=== PATIENT | male | born 2000 | race Caucasian/White ===

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

== ENCOUNTER 2019-11-23 04:39 | Emergency (ER) | payer MEDICAID ==
--- NOTE | 2019-11-23 04:52 | ED Physician Documentation ---
PD HPI LOWER EXT INJURY - Stated complaint Stated Complaint: LT ANKLE SWELLING - Chief complaint Chief Complaint: Ext Problem - History obtained from History obtained from: Patient, Family - History of Present Illness PD HPI LOW EXT INJURY LOCATION: Left, Ankle Type of injury: Twist (inversion injury a month ago but was feeling okay. Walked a bit more yesterday, and today noted redness and swelling over lateral malleolus. No skin sores. No fevers. No recent abscesses, dental work, IV use.). No: Fall Timing - onset: Yesterday Timing - duration: Days (2) Timing - details: Gradual onset, Still present Worsened by: Moving, Palpating Associated symptoms: Swelling, Discolored (redness). No: Weakness, Numbness Similar symptoms before: Has not had sx before Recently seen: Not recently seen Review of Systems Constitutional: denies: Fever, Chills, Myalgias Throat: denies: Sore throat Skin: denies: Abrasion (s), Laceration (s) PD PAST MEDICAL HISTORY - Past Medical History Cardiovascular: None Endocrine/Autoimmune: None Musculoskeletal: None Derm: Psoriasis - Past Surgical History Past Surgical History: No - Present Medications Home Medications: Ambulatory Orders Medication Instructions Recorded Confirmed Tramadol HCl 50 mg PO Q6H PRN #20 tablet 10/08/17 Hydrocodone/Acetaminophen [Mcbee 1 each PO Q6H PRN #15 tablet 11/23/19 5-325 Tablet] Ibuprofen [Motrin] 600 mg PO TID PRN #25 tab 11/23/19 dexAMETHasone [Decadron] 4 mg PO DAILY #5 tablet 11/23/19 - Allergies Allergies/Adverse Reactions: Allergies Allergy/AdvReac Type Severity Reaction Status Date / Time polymyxin B AdvReac Hives Verified 10/08/17 13:59 - Social History Does the pt smoke?: No Smoking Status: Never smoker Does the pt drink ETOH?: No Does the pt have substance abuse?: No - Immunizations Immunizations are current?: Yes - POLST Patient has POLST: No PD ED PE NORMAL - Vitals Vital signs reviewed: Yes - General General: Alert and oriented X 3, Well developed/nourished - Derm Derm: Normal color, Warm and dry - Extremities Extremities: No edema, No calf tenderness / cord, Other (He has mild effusion on the lateral aspect of the left ankle with redness warmth and tenderness over that area. There are no skin sores rash abrasions or lacerations.) - Neuro Neuro: Alert and oriented X 3, No motor deficit, No sensory deficit Results - Vitals Vitals: Vital Signs - 24 hr 11/23/19 04:43 Temperature 36.8 C Heart Rate 79 Respiratory 16 Rate Blood Pressure 139/106 H O2 Saturation 100 Oxygen O2 Source Room air Procedures - Arthrocentesis Joint: Ankle Preparation: Sterile prep and drape Anesthesia: LET Fluid: Other (unable to extract fluid from joint) Aftercare: Dressing applied, Patient tolerated well PD MEDICAL DECISION MAKING - ED course Complexity details: considered differential (Consider gout or tendinitis. However he is a bit young and has no history of gout. I think there is enough of an effusion to get a sample off. We will have the nurses put some let on the area and I can get some fluid from the joint. Meanwhile we will treat for inflammation and pain.), d/w patient ED course: I was unable to obtain fluid from the joint which had a mild effusion. At this point he does not have any fever and no obvious reason for an infectious process. We will treat for inflammatory causes such as gout and tendinitis or inflammatory arthritis. I cautioned him to recheck if not improved within a couple of days and return if he has increasing redness especially not localized to around the joint or fevers or general illness. Departure - Departure Disposition: 01 Home, Self Care Clinical Impression: Pain in lateral portion of left ankle, Inflammatory arthritis Condition: Stable Record reviewed to determine appropriate education?: Yes Prescriptions: dexAMETHasone [Decadron] 4 mg PO DAILY #5 tablet Hydrocodone/Acetaminophen [Mcbee 5-325 Tablet] 1 each PO Q6H PRN #15 tablet PRN Reason: Pain Ibuprofen [Motrin] 600 mg PO TID PRN #25 tab PRN Reason: Pain Comments: Kojo wrap and elevate the ankle to reduce swelling. Use the crutches for nonweightbearing as needed for comfort. At this point will assume an inflammatory process such as tendinitis or gout. We will treated with anti-inflammatories of naproxen and Decadron and to that add Tylenol or hydrocodone as needed for pain. Recheck if not improved well over the next couple of days. Return sooner if increasing pain or redness in in particular if it extends more up the leg and not just around the joint. Also fever would be more indicative of infection and to return if that occurs. So summary would be we are treating it as an inflammatory and return if: 1 not improved in the next couple of days 2 the redness and swelling extends into larger range 3 you develop fever or generalized symptoms
[2019-11-23] MEDS ORDERED: IBUPROFEN 600 MG TABLET PO STA (05:01)
[2019-11-23] MEDS ORDERED: HYDROcod/ACETAM 5/325 MG TABLET PO STA (05:02)
[2019-11-23] MEDS ORDERED: DEXAMETHASONE 10 MG/ML VIAL PO STA (05:02)
[2019-11-23] MEDS ORDERED: LIDOCAINE-EPINEPH-TETRACAINE 3 ML SYRINGE TOP STA (05:02)
[2019-11-23] MEDS ORDERED: CHERRY SYRUP 10 ML UDC PO ONE (05:02)
[2019-11-23 05:54] VITALS: BP 135/77
== END 2019-11-23 05:53 | disposition home or self-care (01) ==
LOC: ED 04:39
DX: M13.872 Other specified arthritis, left ankle and foot (principal)
CPT/HCPCS: 20605; 99283; A9270

== ENCOUNTER 2020-05-23 13:06 | Emergency (ER) | payer MEDICAID ==
[2020-05-23 13:17] VITALS: BP 101/65
[2020-05-23] MEDS ORDERED: BACITRACIN ZINC OINT 1 PACKET TOP STA (13:29)
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
== END 2020-05-23 13:39 | disposition home or self-care (01) ==
LOC: ED 13:06
DX: S71.111A Laceration without foreign body, right thigh, initial encounter (principal); W26.0XXA Contact with knife, initial encounter; Y93.01 Activity, walking, marching and hiking
CPT/HCPCS: 12001; 99282

== ENCOUNTER 2021-03-08 09:00 | Emergency (ER) | payer MEDICAID ==
[2021-03-08 09:10] VITALS: BP 104/59
[2021-03-08] MEDS ORDERED: methocarbamoL 500 MG TABLET PO STA (09:21)
[2021-03-08] MEDS ORDERED: KETOROLAC 30 MG/ML VIAL IM STA (09:22)
[2021-03-08] MEDS ORDERED: LIDOCAINE PATCH 5% TOP STA (09:23)
--- NOTE | 2021-03-08 09:24 | ED Physician Documentation ---
History of Present Illness - Stated complaint Stated Complaint: BACK PX - Chief complaint Chief Complaint: Back Pain - History obtained from History obtained from: Patient - Additonal information Additional information: 20-year-old man without significant past medical history presents with right lower back pain intermittent over the past 3 days, progressively worsening, gradual in onset and radiating from the right lower back down the middle of the leg to just below the knee. Sharp quality, severe, keeping him from sleeping, without associated symptoms. Patient denies numbness or weakness. He is having difficulty ambulating secondary to pain but is able to walk. Denies fevers or saddle anesthesia or urinary incontinence or retention or fecal incontinence or retention. denies dysuria, hematuria. Review of Systems Constitutional: denies: Fever, Chills GI: denies: Constipation : denies: Unable to Void, Incontinent Musculoskeletal: reports: Back pain, Extremity pain Neurologic: denies: Focal weakness, Numbness PD PAST MEDICAL HISTORY - Past Medical History Cardiovascular: None Endocrine/Autoimmune: None Musculoskeletal: None Derm: Psoriasis - Past Surgical History Past Surgical History: No - Present Medications Home Medications: Ambulatory Orders Medication Instructions Recorded Confirmed No Known Home Medications 03/08/21 03/08/21 - Allergies Allergies/Adverse Reactions: Allergies Allergy/AdvReac Type Severity Reaction Status Date / Time polymyxin B AdvReac Hives Verified 03/08/21 09:10 - Social History Does the pt smoke?: No Smoking Status: Never smoker Does the pt drink ETOH?: No Does the pt have substance abuse?: No - Immunizations Immunizations are current?: Yes - POLST Patient has POLST: No PD ED PE NORMAL - Vitals Vital signs reviewed: Yes - General General: Alert and oriented X 3, No acute distress, Well developed/nourished - HEENT HEENT: Atraumatic, PERRL, EOMI - Neck Neck: Supple, no meningeal sign - Back Back: No CVA TTP, No spinal TTP, Other (Right lumbosacral region tender to palpation in a muscular distribution. Negative straight leg raise) - Derm Derm: Normal color, Warm and dry - Extremities Extremities: No deformity, Other (Full range of motion of bilateral hips. Discomfort with flexion at the hip on the right side.) - Neuro Neuro: Alert and oriented X 3 - Psych Psych: Normal mood, Normal affect Results - Vitals Vitals: Vital Signs - 24 hr 03/08/21 09:08 Temperature 36.4 C L Heart Rate 80 Respiratory 16 Rate Blood Pressure 104/59 L O2 Saturation 97 Oxygen O2 Source Room air PD MEDICAL DECISION MAKING - ED course ED course: 20-year-old man presents with right low back strain. Strict return precautions given. Patient will follow up with his primary doctor. Departure - Departure Disposition: 01 Home, Self Care Clinical Impression: Low back strain Condition: Stable Instructions: ED Spasm Back No Trauma Comments: You were seen in the emergency department for right lower back strain. Please apply ice for 20 minutes every hour alternating with warm compress for 20 minutes every hour and take hot showers to try to relax your muscles. Take ibuprofen 600 mg every 6 hours as needed for pain. You can get [id number] IcyHot to help with pain as well. Return the emergency department if you experience any new or worsening symptoms or have other concerns. Follow-up with your primary doctor this week.
== END 2021-03-08 10:04 | disposition home or self-care (01) ==
LOC: ED 09:00
DX: S39.012A Strain of muscle, fascia and tendon of lower back, initial encounter (principal); X58.XXXA Exposure to other specified factors, initial encounter
CPT/HCPCS: 96372; 99283; 99284

== ENCOUNTER 2021-03-08 20:50 | Observation (INO) | payer MEDICAID ==
[2021-03-08] MEDS ORDERED: KETOROLAC 15 MG/ML VIAL IVP STA (21:14)
[2021-03-08] MEDS ORDERED: SODIUM CHLORIDE 0.9% 1,000 ML IV STA (21:14)
[2021-03-08 21:34] LABS: BASOPHILS % (AUTO) 0.1 %; EOSINOPHILS % (AUTO) 0.5 %; HCT - HEMATOCRIT 37.4 % (42.0-52.0); HGB - HEMOGLOBIN 12.5 g/dL (14.0-18.0); LYMPHOCYTES % (AUTO) 11.3 %; MEAN CORPUSCULAR HEMOGLOBIN 27.6 pg (27.0-31.0); MEAN CORPUSCULAR HGB CONC 33.4 g/dL (32.0-36.0); MEAN CORPUSCULAR VOLUME 82.6 fL (80.0-94.0); MEAN PLATELET VOLUME 8.9 fL (7.4-11.4); MONOCYTES % (AUTO) 10.7 %; PLT - PLATELET COUNT 258 10^3/uL (130-450); RED BLOOD COUNT 4.53 10^6/uL (4.70-6.10); WHITE BLOOD COUNT 15.1 x10^3/uL (4.8-10.8)
[2021-03-08 21:36] LABS: ABNORMAL LYMPHS % (MANUAL) 0 %
[2021-03-08 21:48] LABS: ALBUMIN 3.9 g/dL (3.2-5.5); ALBUMIN/GLOBULIN RATIO 1.2 (1.0-2.2); CALCIUM 9.1 mg/dL (8.5-10.3); CREATININE 0.9 mg/dL (0.6-1.2); POTASSIUM 3.5 mmol/L (3.5-5.0); TOTAL PROTEIN 7.1 g/dL (6.7-8.2)
[2021-03-08 21:57] LABS: BAND NEUTROPHILS % (MANUAL) 1 %; EOSINOPHILS # (MANUAL) 0.2 10^3/uL (0-0.7); LYMPHOCYTES % (MANUAL) 13 %; MONOCYTES # (MANUAL) 0.9 10^3/uL (0.0-1.0); NEUTROPHILS # (MANUAL) 12.1 10^3/uL (1.5-6.6)
[2021-03-08 21:58] LABS: DIFFERENTIAL COMMENT MANUAL DIFFERENTIAL; PLATELET ESTIMATE, MANUAL NORMAL (130-450,000) (NORMAL); PLATELET MORPHOLOGY NORMAL APPEARANCE (NORMAL); RBC MORPHOLOGY (MULTIPLE) NORMAL APPEARANCE (NORMAL); WBC MORPHOLOGY (MULTIPLE) 1+ TOXIC GRANULATION (NORMAL)
--- NOTE | 2021-03-08 21:59 | ED Physician Documentation ---
PD HPI BACK PAIN - Stated complaint Stated Complaint: BACK/HIP PX - Chief complaint Chief Complaint: Back Pain - History obtained from History obtained from: Patient - History of Present Illness Timing - onset: How many days ago (2-3) Timing - details: Gradual onset, Waxing and waning Pain level now: 8 Location: Lower, Right Quality: Pain Associated symptoms: Fever (febrile in ED triage; patient was not aware of fever at home). No: Weakness, Numbness, Incontinent of urine, Unable to urinate, Hematuria, Incontinent of stool Improves with: Rest, Position Worsened by: Movement Similar symptoms before: Has not had sx before Recently seen: Emergency Dept (T+R earlier today for back pain) - Additional information Additional information: c/o 2-3 days of gradual onset atraumatic right low back pain that radiates to right buttock, right hip, and proximal right posterior thigh. He denies h/o similar symptoms. He was evaluated for this pain earlier today in this ED, given robaxin, IM toradol, and lidoderm patch. Discharged without rx, instructed to take ibuprofen. Patient says the meds given in ED were helpful in providing pain relief but that the pain has gradually returned and it continues to progress in severity and is now worse than when he was evaluated earlier today. 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 He says he has not injected heroin, nor any other substance, for at least 5-6 months Review of Systems Constitutional: reports: Fever (in ED although was unaware of any fevers at home), Chills, Sweats Cardiac: reports: Reviewed and negative Respiratory: reports: Reviewed and negative GI: reports: Reviewed and negative : denies: Dysuria, Frequency, Unable to Void, Incontinent, Testicular pain Skin: denies: Rash Musculoskeletal: reports: Back pain Neurologic: denies: Generalized weakness, Focal weakness, Numbness, Headache PD PAST MEDICAL HISTORY - Past Medical History Past Medical History: Yes Cardiovascular: None Respiratory: None Neuro: None Endocrine/Autoimmune: None GI: None : None HEENT: None Psych: None Musculoskeletal: None Derm: Psoriasis - Past Surgical History Past Surgical History: No - Present Medications Home Medications: Ambulatory Orders Medication Instructions Recorded Confirmed No Known Home Medications 03/08/21 03/08/21 - Allergies Allergies/Adverse Reactions: Allergies Allergy/AdvReac Type Severity Reaction Status Date / Time polymyxin B AdvReac Hives Verified 03/08/21 09:10 - Social History Does the pt smoke?: No Smoking Status: Never smoker Does the pt drink ETOH?: No Does the pt have substance abuse?: No - Immunizations Immunizations are current?: Yes - POLST Patient has POLST: No PD ED PE NORMAL - Vitals Vital signs reviewed: Yes - General General: Alert and oriented X 3, Well developed/nourished, Other (appears uncomfortable/ mild-moderate painful distress) - HEENT HEENT: PERRL, EOMI, Moist mucous membranes - Neck Neck: Supple, no meningeal sign - Cardiac Cardiac: No murmur - Respiratory Respiratory: No respiratory distress, Clear bilaterally - Abdomen Abdomen: Soft, Non tender - Back Back: No CVA TTP, No spinal TTP - Derm Derm: Normal color, Warm and dry, No rash - Extremities Extremities: No edema - Neuro Neuro: Alert and oriented X 3, No sensory deficit PD ED PE EXPANDED - Cardiac Cardiac: Tachy, Regular Rhythm - Extremities Extremities: Limited ROM (able to flex right hip to 45 degrees but no further due to exacerbation of pain. cannot extend right knee due to pain. abduction at right hip past 20-30 degrees also exacerbates pain). No: Swelling Results - Vitals Vitals: Vital Signs - 24 hr 03/08/21 03/08/21 03/08/21 20:57 21:47 22:28 Temperature 38.6 C H 38.1 C H Heart Rate 112 H 103 H 91 Respiratory 19 20 15 Rate Blood Pressure 120/80 118/65 122/69 O2 Saturation 100 97 100 03/09/21 03/09/21 03/09/21 00:44 01:27 01:43 Temperature Heart Rate 98 98 82 Respiratory 18 17 16 Rate Blood Pressure 117/64 109/37 L 95/74 O2 Saturation 100 99 98 03/09/21 03/09/21 03:00 03:06 Temperature 37.1 C Heart Rate 100 Respiratory 98 H 18 Rate Blood Pressure 92/46 L O2 Saturation 98 Oxygen O2 Source Room air - Labs Labs: Laboratory Tests 03/08/21 03/08/21 03/08/21 21:31 21:31 21:33 WBC 15.1 H RBC 4.53 L Hgb 12.5 L Hct 37.4 L MCV 82.6 MCH 27.6 MCHC 33.4 RDW 13.0 Plt Count 258 MPV 8.9 Neut # (Auto) Not Reportable Lymph # (Auto) Not Reportable Faulkner # (Auto) Not Reportable Eos # (Auto) Not Reportable Baso # (Auto) Not Reportable Absolute Nucleated RBC Not Reportable Total Counted 100 Band Neuts % (Manual) 1 Abnorm Lymph % (Manual) 0 Nucleated RBC % Not Reportable Neutrophils # (Manual) 12.1 H Lymphocytes # (Manual) 2.0 Monocytes # (Manual) 0.9 Eosinophils # (Manual) 0.2 Basophils # (Manual) 0.0 Differential Comment MANUAL DIFFERENTIAL WBC Morphology 1+ TOXIC GRANULATION Platelet Estimate NORMAL (130-450,000) Platelet Morphology NORMAL APPEARANCE RBC Morph Micro Appear NORMAL APPEARANCE ESR Sodium 136 Potassium 3.5 Chloride 99 L Carbon Dioxide 26 Anion Gap 11.0 BUN 11 Creatinine 0.9 Estimated GFR (MDRD) 107 Glucose 99 Lactic Acid Calcium 9.1 Total Bilirubin 1.0 AST 16 ALT 13 Alkaline Phosphatase 60 C-Reactive Protein 12.3 H Total Protein 7.1 Albumin 3.9 Globulin 3.2 Albumin/Globulin Ratio 1.2 Lipase 23 Urine Color Urine Clarity Urine pH Ur Specific [place] Urine Protein Urine Glucose (UA) Urine Ketones Urine Occult Blood Urine Nitrite Urine Bilirubin Urine Urobilinogen Ur Leukocyte Esterase Ur Microscopic Review Urine Culture Comments Nasal Adenovirus (PCR) Nasal B. parapertussis DNA (PCR) Nasal Coronavir 229E PCR Nasal Coronavir HKU1 PCR Nasal Coronavir NL63 PCR Nasal Coronavir OC43 PCR Nasal Enterovir/Rhinovir PCR Nasal Influenza B PCR Nasal Influenza A PCR Nasal Parainfluen 1 PCR Nasal Parainfluen 2 PCR Nasal Parainfluen 3 PCR Nasal Parainfluen 4 PCR Nasal RSV (PCR) Nasal B.pertussis DNA PCR Nasal C.pneumoniae (PCR) Omid Human Metapneumo PCR Nasal M.pneumoniae (PCR) Nasal SARS-CoV-2 (PCR) 03/08/21 03/08/21 03/09/21 23:32 23:55 02:40 WBC RBC Hgb Hct MCV MCH MCHC RDW Plt Count MPV Neut # (Auto) Lymph # (Auto) Fa[place]ner # (Auto) Eos # (Auto) Baso # (Auto) Absolute Nucleated RBC Total Counted Band Neuts % (Manual) Abnorm Lymph % (Manual) Nucleated RBC % Neutrophils # (Manual) Lymphocytes # (Manual) Monocytes # (Manual) Eosinophils # (Manual) Basophils # (Manual) Differential Comment WBC Morphology Platelet Estimate Platelet Morphology RBC Morph Micro Appear ESR Sodium Potassium Chloride Carbon Dioxide Anion Gap BUN Creatinine Estimated GFR (MDRD) Glucose Lactic Acid 1.3 Calcium Total Bilirubin AST ALT Alkaline Phosphatase C-Reactive Protein Total Protein Albumin Globulin Albumin/Globulin Ratio Lipase Urine Color YELLOW Urine Clarity CLEAR Urine pH 7.0 Ur Specific [place] <=1.005 Urine Protein NEGATIVE Urine Glucose (UA) NEGATIVE Urine Ketones NEGATIVE Urine Occult Blood NEGATIVE Urine Nitrite NEGATIVE Urine Bilirubin NEGATIVE Urine Urobilinogen 0.2 (NORMAL) Ur Leukocyte Esterase NEGATIVE Ur Microscopic Review NOT INDICATED Urine Culture Comments NOT INDICATED Nasal Adenovirus (PCR) NOT DETECTED Nasal B. parapertussis DNA (PCR) NOT DETECTED Nasal Coronavir 229E PCR NOT DETECTED Nasal Coronavir HKU1 PCR NOT DETECTED Nasal Coronavir NL63 PCR NOT DETECTED Nasal Coronavir OC43 PCR NOT DETECTED Nasal Enterovir/Rhinovir PCR NOT DETECTED Nasal Influenza B PCR NOT DETECTED Nasal Influenza A PCR NOT DETECTED Nasal Parainfluen 1 PCR NOT DETECTED Nasal Parainfluen 2 PCR NOT DETECTED Nasal Parainfluen 3 PCR NOT DETECTED Nasal Parainfluen 4 PCR NOT DETECTED Nasal RSV (PCR) NOT DETECTED Nasal B.pertussis DNA PCR NOT DETECTED Nasal C.pneumoniae (PCR) NOT DETECTED Omid Human Metapneumo PCR NOT DETECTED Nasal M.pneumoniae (PCR) NOT DETECTED Nasal SARS-CoV-2 (PCR) NOT DETECTED 03/09/21 02:45 WBC RBC Hgb Hct MCV MCH MCHC RDW Plt Count MPV Neut # (Auto) Lymph # (Auto) [place] # (Auto) Eos # (Auto) Baso # (Auto) Absolute Nucleated RBC Total Counted Band Neuts % (Manual) Abnorm Lymph % (Manual) Nucleated RBC % Neutrophils # (Manual) Lymphocytes # (Manual) Monocytes # (Manual) Eosinophils # (Manual) Basophils # (Manual) Differential Comment WBC Morphology Platelet Estimate Platelet Morphology RBC Morph Micro Appear ESR 22 H Sodium Potassium Chloride Carbon Dioxide Anion Gap BUN Creatinine Estimated GFR (MDRD) Glucose Lactic Acid Calcium Total Bilirubin AST ALT Alkaline Phosphatase C-Reactive Protein Total Protein Albumin Globulin Albumin/Globulin Ratio Lipase Urine Color Urine Clarity Urine pH Ur Specific [place] Urine Protein Urine Glucose (UA) Urine Ketones Urine Occult Blood Urine Nitrite Urine Bilirubin Urine Urobilinogen Ur Leukocyte Esterase Ur Microscopic Review Urine Culture Comments Nasal Adenovirus (PCR) Nasal B. parapertussis DNA (PCR) Nasal Coronavir 229E PCR Nasal Coronavir HKU1 PCR Nasal Coronavir NL63 PCR Nasal Coronavir OC43 PCR Nasal Enterovir/Rhinovir PCR Nasal Influenza B PCR Nasal Influenza A PCR Nasal Parainfluen 1 PCR Nasal Parainfluen 2 PCR Nasal Parainfluen 3 PCR Nasal Parainfluen 4 PCR Nasal RSV (PCR) Nasal B.pertussis DNA PCR Nasal C.pneumoniae (PCR) Omid Human Metapneumo PCR Nasal M.pneumoniae (PCR) Nasal SARS-CoV-2 (PCR) - Rads (name of study) CT A/P with IV contrast Radiology: Prelim report reviewed, See rad report PD MEDICAL DECISION MAKING - ED course Complexity details: reviewed old records, reviewed results, re-evaluated patient, considered differential, d/w patient ED course: CT A/P with IV contrast is unremarkable. His pain worsened during ED stay and on reevaluation after CT, he is in obvious severe painful distress. He had minimal relief with 1mg IV dilaudid but good relief with a second dose of 1mg IV dilaudid. Unfortunately, even after he was comfortable, his ROM of right hip and RLE remained the same as the initial evaluation. His ROM does not allow for attempts to have him sit up nor stand, and the leukocytosis and presence of fever without an apparent source is concerning in setting of back pain. He is forthcoming with his heroin use, and at no point during ED stay did he ask for any specific pain medication nor demand pain medication at any point. Plan is to admit for further pain control as well as consideration for further study in the morning such as MRI Departure - Departure Disposition: ED Place in Observation Clinical Impression: Back pain Qualifiers: Back pain location: low back pain Chronicity: acute Back pain laterality: right Sciatica presence: without sciatica Qualified Code(s): M54.5 - Low back pain Condition: Good Discharge Date/Time: 03/09/21 04:15
[2021-03-08] MEDS ORDERED: IOPAMIDOL-300 100 ML VIAL ONE (22:53)
[2021-03-08] MEDS ORDERED: IOPAMIDOL-300 100 ML VIAL IVP ONE (23:31)
[2021-03-08 23:41] LABS: BILIRUBIN,URINE NEGATIVE (NEGATIVE); GLUCOSE, URINE (UA) NEGATIVE (NEGATIVE); KETONES,URINE (UA) NEGATIVE (NEGATIVE); LEUKOCYTE ESTERASE, URINE NEGATIVE (NEGATIVE); NITRITE,URINE NEGATIVE (NEGATIVE); OCCULT BLOOD,URINE NEGATIVE (NEGATIVE); PROTEIN,URINE NEGATIVE (NEGATIVE); UROBILINOGEN,URINE 0.2 (NORMAL) E.U./dL (NORMAL)
[2021-03-08 23:51] LABS: CLARITY,URINE CLEAR (CLEAR)
[2021-03-09] MEDS ORDERED: HYDROmorphone 1 MG/ML CARPUJECT IVP STA ×2 (01:06→01:33)
[2021-03-09] MEDS ORDERED: ACETAMINOPHEN 325 MG TABLET PO STA (01:33)
[2021-03-09] MEDS ORDERED: oxyCODONE 5 MG TABLET PO PRN (03:13)
[2021-03-09] MEDS ORDERED: ONDANSETRON ODT 4 MG TABLET TL PRN (03:13)
--- NOTE | 2021-03-09 03:25 | HISTORY & PHYSICAL EXAMINATION ---
Chief Complaint - Chief Complaint Chief Complaint: Back pain History of Present Illness - Admitted From Admitted From:: ED - History Obtained From Records Reviewed: ED History obtained from: Patient Exam Limitations: Pain - History of Present Illness HPI Comment/Other: Patient is a relatively healthy 20-year-old male whose past medical history includes substance abuse, including IV drug use last used 9 months ago, current ly smokes marijuana and vaping, as well as smoking heroin last used today presents to the emergency room with a 3-day history of acute onset sudden right lower back pain with radiculitis down to the right lower extremity. Patient states he woke up with this pain about 3 days ago without antecedent trauma, or other triggers to the back pain. Located approximately Along the right SI joint and described by the patient as a "burning sensation in my butt" that radiates down the right leg. States he has never had this before and has never had pain like this before. Is been so painful that he has not been able to ambulate. The pain is worsened with right leg raise. Is not associated with numbness, bowel incontinence, or urinary incontinence. He denied having any fever at home, nor chills, nausea, vomiting, rash, headache, cough, dysuria, GI symptoms, or otherwise. However, in the ED he did have a temp of 38.1 C, as well as an elevated white blood cell count of 15,000, and elevated CRP level, and intermittent tachycardia as well as mild hypotension.Patient was very forthright with respect to history of drug use and did not demonstrate any pain seeking behavior, in particular did not request any narcotic pain medications and in fact had fairly good relief with 15 mg of Toradol in the ED however after this wore off it was no longer very effective and he did respond quite well to as needed Dilaudid in the ED. Given the abnormal labs with significant enough pain limiting ambulation, hospital admission was requested. History - Past Medical History Cardiovascular: reports: None Respiratory: reports: None Neuro: reports: None Endocrine/Autoimmune: reports: None GI: reports: None : reports: None HEENT: reports: None Psych: reports: None Musculoskeletal: reports: None Derm: reports: Psoriasis MRSA Hx?: No Other Past Medical History: History of IVDU, last used 8 to 9 months ago, currently smoking heroin, smoking marijuana, and vaping. Denies alcohol - Family & Social History Family History Comment/Other: None Living arrangement: At home Living Situation: With family Social History Notes: Arrived to the ED with girlfriend - Substance History Use: Uses substance without health or social issues: Opioid - POLST Patient has POLST: No POLST Status: Full Code Meds/Allgy - Home Medications Home Medications: Ambulatory Orders Medication Instructions Recorded Confirmed No Known Home Medications 03/08/21 03/08/21 - Allergies Allergies/Adverse Reactions: Allergies Allergy/AdvReac Type Severity Reaction Status Date / Time polymyxin B AdvReac Hives Verified 03/08/21 09:10 Review of Systems - Constitutional Constitutional: denies: Fatigue, Fever, Chills, Weakness - Cardiovascular Cariovascular: denies: Irregular heart rate, Chest pain - Respiratory Respiratory: denies: Cough - Gastrointestinal Gastrointestinal: denies: Abdominal pain, Constipation, Diarrhea - Genitourinary Genitourinary: denies: Dysuria - Musculoskeletal Musculoskeletal: reports: Muscle pain, Back pain, Limited range of motion, Muscle weakness, Joint pain. denies: Joint swelling - Neurological Neurological: reports: Abnormal gait. denies: General weakness, Focal weakness, Numbness - All Other Systems All Other Systems: reports: Reviewed and negative Prior Level of Functionality: Fully independent Exam - Vital Signs Reviewed Vital Signs: Yes Vital Signs: Vital Signs x48h Temp Pulse Resp BP Pulse Ox 03/09/21 03:06 18 98 03/09/21 03:00 37.1 C 100 98 H 92/46 L 03/09/21 01:43 82 16 95/74 98 03/09/21 01:27 98 17 109/37 L 99 03/09/21 00:44 98 18 117/64 100 03/08/21 22:28 38.1 C H 91 15 122/69 100 03/08/21 21:47 103 H 20 118/65 97 03/08/21 20:57 38.6 C H 112 H 19 120/80 100 - Physical Exam General Appearance: positive: No acute distress, Alert (Mildly lethargic secondary to pain medication but easily arousable unable to cooperate fully with exam) Eyes Bilateral: positive: Normal inspection ENT: positive: ENT inspection nml Neck: positive: Nml inspection, Thyroid nml, No JVD Cardiovascular: positive: Regular rate & rhythm Peripheral Pulses: positive: 2+ Abdomen: positive: Non-tender, No organomegaly, Nml bowel sounds, No distention Back: positive: Other (Tender to palpation along the right sacroiliac joint, Significant limitation to range of motion due to pain) Skin: positive: Color nml, No rash, Warm Extremities: positive: Other (Right lower extremity: Sensation to light touch intact, plantar flexion dorsiflexion at the ankle joint 5/5, hip flexion 3/5, able to extend right leg approximately 4 to 6 inches above the exam table, pain reproduced with end range of motion hip external rotation, no pain with internal rotation, sundar) Neurologic/Psychiatric: positive: Sensation nml Reflexes: Ankle (R): 1+, Ankle (L): 1+ Sepsis Event Note (H) - Evaluation Current Stage of Sepsis: Sepsis Possible source of Sepsis: positive: Bone/Joint Sepsis Associated Organ Dysfunction: None - Sepsis Criteria Sepsis Criteria: Recorded Temperature greater than 38.3C or Less than 36C, Recorded Heart Rate greater than 90 bpm, WBC count greater than 12,000 or less than 4000, SBP less than 90 mmHg Conclusion/Plan - Problem List (1) Back pain Qualifiers: Back pain location: low back pain Chronicity: acute Back pain laterality: right Sciatica presence: without sciatica Qualified Code(s): M54.5 - Low back pain (2) SIRS (systemic inflammatory response syndrome) Conclusion/Plan: Patient does meet criteria for SIRS, But does not have evidence of endorgan dysfunction to suggest sepsis. Infection is on the differential but not confirmed. SIRS is present on admission Includes tachycardia, hypotension, leukocytosis, and fever documented in ED Will place in observation pending further work-up We will check imaging and manage musculoskeletal symptoms as below Given fever, mild hypotension and tachycardia with leukocytosis and elevated CRP, will check a blood culture Given remote history of IV drug use, will start empiric vancomycin pending clinical course If labs trend down, likely can DC antibioticsPending blood culture (3) Radicular pain of right lower extremity Conclusion/Plan: SI joint and right lower extremity pain, severe limiting ambulation, prohibiting discharge Responded minimally to Toradol though only low-dose was given Responded to Dilaudid though patient does not exhibit pain seeking behavior Given acuity of the onset with significance of symptoms will check MRI with contrast to rule out infection due to findings described above We will request PT eval If fever abates, leukocytosis resolved, and preliminary blood culture negative, can likely be discharged home and called back for positive blood cultures as long as patient can ambulate and MRI does not show any significant acute findings Could consider outpatient SI joint injection under ultrasound guidance if available - Lab Results Lab results reviewed: Yes Fish Bones: 03/08/21 21:31 03/08/21 21:31 - Diagnostic Imaging Results Diagnostic Imaging Results: positive: Prelim report reviewed Diagnostic Imaging Results Comments: CT abdomen pelvis preliminary report reviewed with no acute findings Core Measures - Anticipated LOS I expect patient to be DC'd or transferred within 96 hours.: Yes - DVT/VTE - Prophylaxis VTE/DVT Device ordered at admit?: Yes
[2021-03-09] MEDS ORDERED: SODIUM CHLORIDE 0.9% 1,000 ML IV SCH (04:00)
[2021-03-09] MEDS ORDERED: VANCOMYCIN INJ 1.5 GM in SODIUM CHLORIDE 0.9% 500 ML IV SCH (05:00)
[2021-03-09] MEDS: SODIUM CHLORIDE FLUSH 0.9% 10 ML SYRINGE IVP PRN ×2 (05:06→12:50)
[2021-03-09] MEDS: KETOROLAC 30 MG/ML VIAL IVP PRN ×2 (05:06→11:31)
[2021-03-09 05:08] LABS: B. PARAPERTUSSIS- RESP PCR PAN NOT DETECTED; B. PERTUSSIS- RESP PCR PANEL NOT DETECTED; C. PNEUMONIAE- RESP PCR PANEL NOT DETECTED; CORONAVIRUS 229E-RESP PCR NOT DETECTED; CORONAVIRUS HKU1-RESP PCR NOT DETECTED; CORONAVIRUS NL63-RESP PCR NOT DETECTED; CORONAVIRUS OC43-RESP PCR NOT DETECTED; HUMAN METAPNEUMOVIRUS NOT DETECTED; INFLUENZA A- RESP PCR PANEL NOT DETECTED; INFLUENZA B - RESP PCR PANEL NOT DETECTED; M. PNEUMONIAE- RESP PCR PANEL NOT DETECTED; PARAINFLUENZA VIRUS 1 NOT DETECTED; PARAINFLUENZA VIRUS 2 NOT DETECTED; PARAINFLUENZA VIRUS 3 NOT DETECTED; PARAINFLUENZA VIRUS 4 NOT DETECTED; RHINOVIRUS/ENTEROVIRUS NOT DETECTED; RSV- RESP PCR PANEL NOT DETECTED; SARS-CoV-2 -RESP PCR PANEL NOT DETECTED
[2021-03-09] MEDS: HYDROmorphone 0.5 MG/0.5 ML SYRINGE IVP PRN ×3 (05:34→12:47)
[2021-03-09 05:36] LABS: HGB - HEMOGLOBIN 12.3 g/dL (14.0-18.0); MEAN CORPUSCULAR HEMOGLOBIN 28.4 pg (27.0-31.0); MEAN CORPUSCULAR HGB CONC 34.2 g/dL (32.0-36.0); MEAN CORPUSCULAR VOLUME 83.1 fL (80.0-94.0); MEAN PLATELET VOLUME 9.2 fL (7.4-11.4); RED BLOOD COUNT 4.33 10^6/uL (4.70-6.10); RED CELL DISTRIBUTION WIDTH 13.1 % (12.0-15.0); WHITE BLOOD COUNT 17.4 x10^3/uL (4.8-10.8)
[2021-03-09 05:46] LABS: CALCIUM 8.7 mg/dL (8.5-10.3); CREATININE 0.7 mg/dL (0.6-1.2); POTASSIUM 3.4 mmol/L (3.5-5.0)
[2021-03-09] MEDS: ACETAMINOPHEN 325 MG TABLET PO PRN ×2 (07:42→13:13)
[2021-03-09] MEDS ORDERED: GADOBUTROL 10 MMOL/10 ML VIAL ONE (07:47)
[2021-03-09] MEDS ORDERED: SODIUM CHLORIDE FLUSH 0.9% 10 ML SYRINGE IVP SCH (09:00)
[2021-03-09] MEDS ORDERED: CYCLOBENZAPRINE 10 MG TABLET PO PRN (09:01)
--- NOTE | 2021-03-09 09:09 | PROVIDER PROGRESS NOTE ---
Hospitalist Cross-cover Note - Cross-Cover Note Cross-Cover Note: He had just returned from MRI at the time of my evaluation. His pain seems worse with flexion of the right lower extremity at the hip. External and internal rotation seems to worsen his pain and that right leg as well. He denies any fall. The night before the pain started his girlfriend had attempted to do some chiropractic manipulation on his upper back. Patient's WBC count today was 17.4, ESR 22. Blood cultures pending. Vancomycin was initiated. Patient is on ketorolac 30 mg IV every 6 hours as needed. Tylenol 650 mg p.o. every 4 hours as needed. Hydromorphone 0.5 mg every 2 hours as needed. Flexeril 10 mg p.o. 3 times daily as needed was added. We will await MRI results and blood cultures.
--- NOTE | 2021-03-09 09:22 | CT Report ---
PROCEDURE: Abdomen/Pelvis W INDICATIONS: right low back/pelvic pain, febrile CONTRAST: IV CONTRAST: Isovue 300 ml: 80 PO CONTRAST: *NO PO CONTRAST TECHNIQUE: After the administration of contrast, 5 mm thick sections acquired from the diaphragms to the sym physis. 5 mm thick coronal and sagittal reformats were acquired. For radiation dose reduction, the following was used: automated exposure control, adjustment of mA and/or kV according to patient size . COMPARISON: None. FINDINGS: Image quality: Excellent. ABDOMEN: Lung bases: Lung bases are clear. Heart size is normal. Solid organs: Liver and spleen are normal in size and enhancement. Gallbladder is partially contrac carolee Biliary system is non dilated. Pancreas enhances normally. No adrenal nodules. Kidneys demons trate normal size and enhancement, without hydronephrosis. Peritoneum and bowel: Bowel loops demonstrate normal wall thickness and caliber. No free fluid or a ir. Nodes and vessels: No retroperitoneal or mesenteric adenopathy by size criteria. Aorta and inferior vena cava are normal in size. Miscellaneous: No ventral hernias. PELVIS: Genitourinary: Bladder wall thickness is normal. Miscellaneous: No inguinal hernias or adenopathy. Normal appendix found right lower quadrant. Bones: No suspicious bony lesions. No vertebral body compression fractures. IMPRESSION: No urinary tract stone found, no inflammation along the retroperitoneum is identified. A source of low back pain, pelvic pain with fever is not found. By this examination CT evidence of dis citis or osteomyelitis is not found. If clinical concerns persist or increase MR of the spine without and with contrast may become necessary. Reviewed by: Howie Lundy MD on 03/09/2021 9:20 AM PDT Approved by: Howie Lundy MD on 03/09/2021 9:20 AM PDT Station ID: [id number]
--- NOTE | 2021-03-09 09:24 | MRI Report ---
PROCEDURE: Lumbar Spine W/WO INDICATIONS: SEVERE LOW BACK PAIN. CONTRAST: IV CONTRAST: Gadavist ml: 7 TECHNIQUE: Noncontrast sagittal T1 spin echo and T2 fast spin echo, sagittal STIR, axial T1 and T2 fast spin ech o through the lumbar spine. In cases with scoliosis, additional coronal T2 fast spin echo may be per formed. After the administration of contrast, sagittal and axial T1 spin echo with fat saturation th rough the lumbar spine. COMPARISON: Correlation is made with the abdomen and pelvis CT 03/08/2021. FINDINGS: Image quality: Diagnostic. Alignment and curvature: There is normal bony alignment. Marrow: Marrow is of normal overall signal. No acute vertebral body compression fractures. No susp icious marrow enhancement. Spinal cord: Conus medullaris terminates at the L1 level. Visualized spinal cord demonstrates john l signal, without suspicious enhancement. Paraspinous soft tissues: No paravertebral masses or abnormal enhancement. T12-L1: Normal in appearance. L1-L2: Normal in appearance. L2-L3: Normal in appearance. L3-L4: Normal in appearance. L4-L5: Normal in appearance. L5-S1: Normal in appearance. IMPRESSION: Normal lumbar spine MRI. No abnormal enhancement can be seen. Reviewed by: Bashir Cramer MD on 03/09/2021 8:22 AM PAT Approved by: Bashir Cramer MD on 03/09/2021 8:22 AM PAT Station ID: [id number]
[2021-03-09] MEDS ORDERED: NICOTINE 14 MG PATCH TOP SCH (10:00)
[2021-03-09] MEDS ORDERED: GADOBUTROL 10 MMOL/10 ML VIAL IVP ONE (11:32)
--- NOTE | 2021-03-09 12:37 | DISCHARGE SUMMARY ---
Discharge Summary Admit Date: 03/09/21 Discharge Date: 03/09/21 Discharging Provider: Tenisha Florian Condition at Discharge: Good Discharge Disposition: 01 Home, Self Care - DIAGNOSES Admission Diagnoses: Back pain SIRS Radicular pain of right lower extremity Discharge Diagnoses with Status of Each Condition: Back pain: Acute. Ongoing. Pain management SIRS: Blood cultures are no growth to date Radicular pain of right lower extremity: MRI of lumbosacral spine unremarkable. Pain management, muscle relaxant - HPI History of Present Illness: Patient is a relatively healthy 20-year-old male whose past medical history includes substance abuse, including IV drug use last used 9 months ago, currently smokes marijuana and vaping, as well as smoking heroin last used today presents to the emergency room with a 3-day history of acute onset sudden right lower back pain with radiculitis down to the right lower extremity. Patient states he woke up with this pain about 3 days ago without antecedent trauma, or other triggers to the back pain. Located approximately Along the right SI joint and described by the patient as a "burning sensation in my butt" that radiates down the right leg. States he has never had this before and has never had pain like this before. Is been so painful that he has not been able to ambulate. The pain is worsened with right leg raise. Is not associated with numbness, bowel incontinence, or urinary incontinence. He denied having any fever at home, nor chills, nausea, vomiting, rash, headache, cough, dysuria, GI symptoms, or otherwise. However, in the ED he did have a temp of 38.1 C, as well as an elevated white blood cell count of 15,000, and elevated CRP level, and intermittent tachycardia as well as mild hypotension.Patient was very forthright with respect to history of drug use and did not demonstrate any pain seeking behavior, in particular did not request any narcotic pain medications and in fact had fairly good relief with 15 mg of Toradol in the ED however after this wore off it was no longer very effective and he did respond quite well to as needed Dilaudid in the ED. Given the abnormal labs with significant enough pain limiting ambulation, hospital admission was requested. Patient had an MRI of the lumbar spine which was normal. No abnormal enhancement was seen. CT abdomen/pelvis was negative for any significant findings. Patient's pain was managed with Tylenol, Toradol, Dilaudid and Flexeril as needed. He was discharged home with a prescription of Flexeril 3 times daily as needed for total 5 days. He was also advised to take ibuprofen as needed for his pain. His blood cultures are no growth so far. If anything grows on culture he will be Contacted to return for further treatment. He received vancomycin IV during his hospital stay. Is to return to the ED if his pain worsens or becomes unbearable. He expressed understanding to the plan discussed above. - ALLERGIES Allergies/Adverse Reactions: Allergies Allergy/AdvReac Type Severity Reaction Status Date / Time polymyxin B AdvReac Hives Verified 03/08/21 09:10 - MEDICATIONS Home Medications: Ambulatory Orders Medication Instructions Recorded Confirmed Cyclobenzaprine [Flexeril] 10 mg PO TID PRN 5 Days #15 tablet 03/09/21 - PHYSICAL EXAM AT DISCHARGE General Appearance: positive: Alert, Moderate distress Eyes Bilateral: positive: PERRL, EOMI ENT: positive: No signs of dehydration Neck: positive: No JVD, Trachea midline Respiratory: positive: Chest non-tender, No respiratory distress, Breath sounds nml. negative: Wheezes, Rales, Rhonchi Cardiovascular: positive: Regular rate & rhythm, No murmur Abdomen: positive: Non-tender, No organomegaly, Nml bowel sounds, No distention. negative: Guarding, Rebound Back: positive: Nml inspection Skin: positive: Color nml, No rash, Warm, Dry Extremities: positive: Other (Worsening lumbar pain with flexion of right leg at hip) Neurologic/Psychiatric: positive: Oriented x3, Motor nml, Sensation nml, Mood/affect nml - LABS Result Diagrams: 03/09/21 05:20 03/09/21 05:20 - SEPSIS Current Stage of Sepsis: Sepsis Possible source of Sepsis: Bone/Joint Sepsis Criteria: Recorded Temperature greater than 38.3C or Less than 36C, Recorded Heart Rate greater than 90 bpm, WBC count greater than 12,000 or less than 4000, SBP less than 90 mmHg - TIME SPENT Time Spent in Discharge (Minutes): 15
--- NOTE | 2021-03-09 12:40 | Discharge Plan ---
Discharge Plan Problem Reviewed?: Yes Disposition: 01 Home, Self Care Condition: Good Prescriptions: Cyclobenzaprine [Flexeril] 10 mg PO TID PRN 5 Days #15 tablet PRN Reason: Spasms Diet: Regular Activity Restrictions: Activity as Tolerated Health Concerns: You were admitted with lower back pain Down your right lower extremity. This was suspected to be due to radiculopathy. Your pain was managed with Tylenol, Toradol, Dilaudid and Flexeril. You underwent an MRI of the lumbar and sacral spine which was negative for any significant findings You had a slightly elevated white blood cell count at 15 and 17, elevated ESR and a temperature at time of admission. Blood cultures were done and you were given a dose of vancomycin. You are being discharged home if your blood cultures are positive you will be contacted to return for further treatment. You may continue taking an NSAID like ibuprofen as needed for the pain. I would also advise rest and this time. Plan of Treatment: You were admitted with lower back pain Down your right lower extremity. This was suspected to be due to radiculopathy. Your pain was managed with Tylenol, Toradol, Dilaudid and Flexeril. You underwent an MRI of the lumbar and sacral spine which was negative for any significant findings You had a slightly elevated white blood cell count at 15 and 17, elevated ESR and a temperature at time of admission. Blood cultures were done and you were given a dose of vancomycin. You are being discharged home if your blood cultures are positive you will be contacted to return for further treatment. You may continue taking an NSAID like ibuprofen as needed for the pain. I would also advise rest and this time. Care Goals: You were admitted with lower back pain Down your right lower extremity. This was suspected to be due to radiculopathy. Your pain was managed with Tylenol, Toradol, Dilaudid and Flexeril. You underwent an MRI of the lumbar and sacral spine which was negative for any significant findings You had a slightly elevated white blood cell count at 15 and 17, elevated ESR and a temperature at time of admission. Blood cultures were done and you were given a dose of vancomycin. You are being discharged home if your blood cultures are positive you will be contacted to return for further treatment. You may continue taking an NSAID like ibuprofen as needed for the pain. I would also advise rest and this time. Assessment: You were admitted with lower back pain Down your right lower extremity. This was suspected to be due to radiculopathy. Your pain was managed with Tylenol, Toradol, Dilaudid and Flexeril. You underwent an MRI of the lumbar and sacral spine which was negative for any significant findings You had a slightly elevated white blood cell count at 15 and 17, elevated ESR and a temperature at time of admission. Blood cultures were done and you were given a dose of vancomycin. You are being discharged home if your blood cultures are positive you will be contacted to return for further treatment. You may continue taking an NSAID like ibuprofen as needed for the pain. I would also advise rest and this time. You were also sent home with a prescription of Flexeril 3 times daily as needed for 5 days. If your pain worsens do not feel to go to the emergency department for reevaluation. This was explained to you and you expressed understanding. No Smoking: If you smoke, Please STOP! Call for help.
[2021-03-09] MEDS ORDERED: VANCOMYCIN INJ 1 GM in SODIUM CHLORIDE 0.9% 250 ML IV SCH (13:00)
[2021-03-09 13:06] VITALS: BP 113/74
== END 2021-03-09 13:35 | disposition home or self-care (01) ==
LOC: ED 20:50 → MS3 03-09 03:13
PROVIDERS: ADMIT Family Medicine Sports Medicine; ATTEND Internal Medicine
DX: R78.81 Bacteremia (principal); A49.01 Methicillin susceptible Staphylococcus aureus infection, unspecified site; M54.5 Low back pain; M54.18 Radiculopathy, sacral and sacrococcygeal region; F19.11 Other psychoactive substance abuse, in remission; Z72.89 Other problems related to lifestyle; Z20.822 Contact with and (suspected) exposure to COVID-19; S39.012A Strain of muscle, fascia and tendon of lower back, initial encounter; X58.XXXA Exposure to other specified factors, initial encounter
CPT/HCPCS: 0202U; 36415; 72158; 74177; 80048; 80053; 81003; 83605; 83690; 85025; 85027; 85651; 86140; 87040; 87150; 87181; 96365; 96366; 96372; 96375; 96376; 97161; 99283; 99284; 99285; A9270; A9585; G0378; J1170; J3370; Q9967; 81001; 87086

== ENCOUNTER 2023-02-20 10:02 | Inpatient (IN) | payer MEDICAID, OTHER ==
--- NOTE | 2023-02-20 11:03 | XRAY Report ---
PROCEDURE: Foot 3 View LT INDICATIONS: Trauma TECHNIQUE: 3 views of the foot were acquired. COMPARISON: None. FINDINGS: Bones: No fractures or dislocations. No suspicious bony lesions. Soft tissues: No suspicious soft tissue calcifications or masses. IMPRESSION: No acute bony abnormality. Reviewed by: Ken Cox MD on 02/20/2023 11:02 AM PDT Approved by: Ken Cox MD on 02/20/2023 11:02 AM PDT Station ID: [id number]
--- NOTE | 2023-02-20 11:05 | XRAY Report ---
PROCEDURE: Ankle 3 View LT INDICATIONS: Trauma TECHNIQUE: 3 views of the ankle were acquired. COMPARISON: None. FINDINGS: Bones: No fractures or dislocations. Question mild widening between the lateral malleolus and the ta dhruv. No suspicious bony lesions. Soft tissues: No tibiotalar joint effusion. Achilles tendon appears normal. Lateral soft tissue sw elling. IMPRESSION: Findings suggest possible lateral ankle ligamentous injury. There is questionable widening between th e lateral malleolus and the talus. Comment: Consider nonemergent MRI of the ankle for confirmation if necessary. Reviewed by: Ken Cox MD on 02/20/2023 11:03 AM PDT Approved by: Ken Cox MD on 02/20/2023 11:03 AM PDT Station ID: [id number]
[2023-02-20] MEDS ORDERED: TETANUS/DIPHTHERIA/PERTUSSIS 0.5 ML SYRINGE IM ONE (11:56)
[2023-02-20] MEDS ORDERED: SODIUM CHLORIDE 0.9% 1,000 ML IV STA (11:56)
--- NOTE | 2023-02-20 12:00 | ED Physician Documentation ---
History of Present Illness - Stated complaint Stated Complaint: SWOLLEN LT FOOT - Additonal information Additional information: 22-year-old male presents to the emergency department for evaluation of acute left foot swelling erythema and pain. States that he was incarcerated for 9 months. During that time he was clean. He was released from incarceration a few weeks ago. He went to [place] and began using again, though this time only smoking drugs, not injecting. States that when he was in [place] he was walking around in his shoe and sock that were constantly wet. Over the last 4 to 5 days he has had progressive swelling, redness and pain to the left foot. He denies fevers. No chest pain, shortness of air, nausea vomiting or diarrhea He reports a history of a back abscess that was treated at in 2020. He does endorse smoking methamphetamine, just prior to arrival. He has skin picking sores on his face and abdomen. He denies any injection drug use for last 3 years. However he is hyperverbal and has agitated motor movements at this time. pt is a poor historian. his uncle in the room, in non contributory to history Review of Systems Constitutional: denies: Fever, Chills Cardiac: reports: Reviewed and negative Respiratory: reports: Reviewed and negative GI: reports: Reviewed and negative : reports: Reviewed and negative Skin: reports: Lesions Musculoskeletal: reports: Joint pain PD PAST MEDICAL HISTORY - Past Medical History Cardiovascular: None Respiratory: None Neuro: None Endocrine/Autoimmune: None GI: None : None HEENT: None Psych: None Musculoskeletal: None Derm: Psoriasis - Past Surgical History Past Surgical History: No - Present Medications Home Medications: Ambulatory Orders Medication Instructions Recorded Confirmed No Known Home Medications 02/20/23 02/20/23 - Allergies Allergies/Adverse Reactions: Allergies Allergy/AdvReac Type Severity Reaction Status Date / Time polymyxin B AdvReac Hives Verified 03/08/21 09:10 - Social History Does the pt smoke?: No Smoking Status: Current every day smoker Does the pt drink ETOH?: No Does the pt have substance abuse?: Yes Substance Use and Type: Marijuana, Other (methamphetamine) - Immunizations Immunizations are current?: Yes Immunizations: TDAP >10years/unknown - POLST Patient has POLST: No POLST Status: Full Code PD ED PE EXPANDED - General General: Alert, Other (Hyperverbal, hyperactive motor movements) - Cardiac Cardiac: Regular Rate, Radial strong equal, Pedal strong equal (Decreased pulse in the left foot though brisk cap refill. Faintly palpable. Neurovascularly intact.), Cap refill < 2 sec. No: Murmur Present - Respiratory Respiratory: Clear to ausultation anjle. No: Distress, Labored - Abdomen Abdomen: Normal Bowel sounds. No: Tender to palpation - Back Back: Normal exam. No: Vertebral tenderness (No vertebral tenderness elicited with palpation of the cervical thoracic or lower lumbar spine.) - Derm Derm: Pick brush (Face and abdomen), Other (Significantly swollen erythematous and red left foot with some open blisters draining serous fluid. 1+ DP pulse palpated; easily obtained biphasic doppler) - Neuro Neuro: Alert and Oriented X 3 - GCS Eye Opening: Spontaneous Motor: Obeys Commands Verbal: Oriented Total: 15 - Psych Psych: Poor eye contact, Manic Results - Vitals Vitals: Vital Signs - 24 hr 02/20/23 02/20/23 10:08 12:28 Temperature 36.3 C L Heart Rate 120 H 123 H Respiratory 18 22 Rate Blood Pressure 115/57 L 143/61 H O2 Saturation 94 100 Oxygen O2 Source Room air - EKG (time done) 1307 EKG releavant findings:: EKG personally interpreted by author of this note. Relevant findings are: Rate: Rate (enter#) (109), Tachy Rhythm: Sinus tachycardia [place]: Normal Intervals: Normal NM QRS: Normal Ischemia: ST elevation c/w repol Compare to prior EKG: Old EKG unavailable Computer interpretation: Agree with computer - Labs Labs: Laboratory Tests 02/20/23 02/20/23 02/20/23 12:03 12:03 12:03 WBC 36.2 H* RBC 3.96 L Hgb 11.5 L Hct 33.8 L MCV 85.4 MCH 29.0 MCHC 34.0 RDW 12.3 Plt Count 426 MPV 9.3 Neut # (Auto) Not Reportable Lymph # (Auto) Not Reportable [place] # (Auto) Not Reportable Eos # (Auto) Not Reportable Baso # (Auto) Not Reportable Absolute Nucleated RBC Not Reportable Total Counted 100 Band Neuts % (Manual) 11 H Abnorm Lymph % (Manual) 0 Nucleated RBC % Not Reportable Neutrophils # (Manual) 33.7 H Lymphocytes # (Manual) 1.4 L Monocytes # (Manual) 0.7 Eosinophils # (Manual) 0.0 Basophils # (Manual) 0.4 H Differential Comment MANUAL DIFFERENTIAL WBC Morphology NORMAL APPEARANCE Platelet Estimate NORMAL (130-450,000) Platelet Morphology NORMAL APPEARANCE RBC Morph Micro Appear NORMAL APPEARANCE Sodium 127 L Potassium 3.1 L Chloride 90 L Carbon Dioxide 25 Anion Gap 12.0 BUN 13 Creatinine 1.1 Estimated GFR (MDRD) 83 L Glucose 118 H Lactic Acid Calcium 8.2 L Total Bilirubin 0.7 AST 50 H ALT 55 Alkaline Phosphatase 78 C-Reactive Protein 29.1 H Total Protein 6.9 Albumin 3.1 L Globulin 3.8 Albumin/Globulin Ratio 0.8 L Lipase 28 Procalcitonin 52.48 H* Urine Color Urine Clarity Urine pH Ur Specific [place] Urine Protein Urine Glucose (UA) Urine Ketones Urine Occult Blood Urine Nitrite Urine Bilirubin Urine Urobilinogen Ur Leukocyte Esterase Ur Microscopic Review Urine Culture Comments Urine Opiates Screen Ur Oxycodone Screen Urine Methadone Screen Ur Propoxyphene Screen Ur Barbiturates Screen Ur Tricyclics Screen Ur Phencyclidine Scrn Ur Amphetamine Screen U Methamphetamines Scrn U Benzodiazepines Scrn Urine Cocaine Screen U Cannabinoids Screen 02/20/23 02/20/23 12:03 14:38 WBC RBC Hgb Hct MCV MCH MCHC RDW Plt Count MPV Neut # (Auto) Lymph # (Auto) [place] # (Auto) Eos # (Auto) Baso # (Auto) Absolute Nucleated RBC Total Counted Band Neuts % (Manual) Abnorm Lymph % (Manual) Nucleated RBC % Neutrophils # (Manual) Lymphocytes # (Manual) Monocytes # (Manual) Eosinophils # (Manual) Basophils # (Manual) Differential Comment WBC Morphology Platelet Estimate Platelet Morphology RBC Morph Micro Appear Sodium Potassium Chloride Carbon Dioxide Anion Gap BUN Creatinine Estimated GFR (MDRD) Glucose Lactic Acid 1.1 Calcium Total Bilirubin AST ALT Alkaline Phosphatase C-Reactive Protein Total Protein Albumin Globulin Albumin/Globulin Ratio Lipase Procalcitonin Urine Color DARK YELLOW Urine Clarity CLEAR Urine pH 6.0 Ur Specific [place] 1.010 Urine Protein TRACE Urine Glucose (UA) NEGATIVE Urine Ketones NEGATIVE Urine Occult Blood TRACE-INTA Urine Nitrite NEGATIVE Urine Bilirubin NEGATIVE Urine Urobilinogen 1 (NORMAL) Ur Leukocyte Esterase NEGATIVE Ur Microscopic Review NOT INDICATED Urine Culture Comments NOT INDICATED Urine Opiates Screen NEGATIVE Ur Oxycodone Screen NEGATIVE Urine Methadone Screen NEGATIVE Ur Propoxyphene Screen NEGATIVE Ur Barbiturates Screen NEGATIVE Ur Tricyclics Screen NEGATIVE Ur Phencyclidine Scrn NEGATIVE Ur Amphetamine Screen POSITIVE H U Methamphetamines Scrn POSITIVE H U Benzodiazepines Scrn NEGATIVE Urine Cocaine Screen NEGATIVE U Cannabinoids Screen POSITIVE H - Rads (name of study) Left leg CT Relevant Findings:: Final report received (Suggestion of cellulitis around the ankle joint extending to the dorsal aspect of the left foot. No discrete drainable abscess collection is seen. No abnormal soft tissue calcifications. No full-thickness tendon rupture. No CT evidence of osteomyelitis. No fracture or dislocation. ) cxr Relevant Findings:: EMP independent interpretation of test (No acute cardiopulmonary process) post intubation xr Relevant Findings:: Final report received (ET tube in satisfactory position. Recommend advancement of the NG tube the tip of which projects in the GE junction) Procedures - Intubation - Major Provider: Emergency physician (Dr. Wilde was present during the intubation.) Medications: Propofol, Succinylcholine Blade: Glidescope Tube: Size-enter number (7.5), Cuffed Route: Oral Confirmation: Direct visualization, Bilateral breath sounds, End tidal CO2, Pulse ox, Chest xray Complications: No compications PD Medical Decision Making - ED course Complexity details: reviewed results, re-evaluated patient, considered differential, d/w patient ED course: 22-year-old male presents to the emergency department for evaluation of 4 to 5 days progressive left foot swelling pain and erythema. This patient unfortunately has a history of injection drug use, though he has not used drugs by injection for at least 3 years. He states that he does smoke opiates and other drugs and used just prior to arrival. He was released from incarceration several weeks ago and found himself in [place] where he began using drugs again; though this time only smoking. States he was walking around with a wet foot shoe and sock and developed some redness that has gotten progressively worse. Patient is a poor historian and is he appears at this time to be under the influence of what I suspect to be methamphetamine. He is hyperverbal, hyper agitated, however he is rediectable. The patient does report a remote history that about 3 years ago of what I suspect to be a spinal epidural abscess that was treated at [facility]. Here in the ER we did obtain a CBC, electrolytes and procalcitonin and lactate. Blood cultures are pending. Per my interpretation he has a marked leukocytosis of 30,000 with a left shift and bandemia of 11. His electrolytes also show a hyponatremia and hypokalemia. His lactate is not elevated. His CO2 is not elevated. He has preserved renal function. Unfortunately his procalcitonin is 54. Coupled with findings of left foot infection, leukocytosis as well as tachycardia, this patient presents as septic though not in septic shock. I did administer 1.5 g of vancomycin as well as 2 g of Ancef. Patient's urine drug screen was positive for amphetamine/methamphetamine as well as cannabinoids. A lower leg CT is pending. Clinically I have low suspicion for a compartment syndrome as I am able to faintly palpate a pulse and biphasic dopplers are easily obtained. He has brisk cap refill. The patient was offered admission to the hospital and he accepts though he does admit that he feels the need to use illicit drugs. I offered him some Dilaudid for analgesia which he acquiesced to. Clinically patient is at high risk for severe illness should he elope from the hospital or leave AGAINST MEDICAL ADVICE. But I have offered admission and he is accepted. I have spoken with our hospitalist Dr. Steiner who graciously agrees to bring the patient in for further evaluation and treatment. 1425: At this time the patient has become increasingly anxious and agitated. He pulled out his peripheral IV access and was thrashing about on the bed. He could not be calmed to or reasoned with. I initially tried a single dose of Ativan for anxiety though despite this he became increasingly combative. With concerns for safety, he was administered an initial dose of 150 mg of ketamine IM. This was followed shortly thereafter with a second dose of ketamine also IM. Patient did require physical locking restraints. Please see the [id number] assessment for this. Subsequently given the concerns for the patient's agitation and inability to properly care for his critical condition the decision was made to intubate him. Once the Aguilar catheter had been placed he was noted to have a marked fever up to 41 degrees. Ice was packed around his groin and in his axilla area and IV tylenol was ordered. It is unclear at this time if the acute fever was due to agitation, methamphetamine use or sepsis. However by the time he departed the emergency department the fever had begun to diminish. I did speak with the admitting hospitalist Dr. Steiner and let her know of the change in his clinical condition. I also spent a brief amount of time with the patient's uncle and his aunt discussing his critical status as well as the need to transfer him to the ICU intubated. - Critical Care Time(min): 90 Time Includes: Direct patient care, Review records, Reassess patient Data interpretation: Labs Procedures excluded from critical care time: Intubation - Sepsis Event Sepsis Onset Date: 02/20/23 Sepsis Onset Time: 12:00 Current Stage of Sepsis: Severe sepsis Initial Hypotension: Not hypotensive Possible source of Sepsis: Skin/soft tissue Mental/Cognitive Status: Alert/Oriented X3 Capillary refill: Less than 2 seconds Peripheral Pulse Strength: 1+ Faint Peripheral Pulse Location: Radial Bedside ultrasound performed: No Departure - Departure Disposition: 66 [facility] DC/Xfer Clinical Impression: Cellulitis of left foot, Drug abuse and dependence, Methamphetamine abuse Sepsis Qualifiers: Sepsis type: sepsis due to unspecified organism Sepsis acute organ dysfunction status: without acute organ dysfunction Qualified Code(s): A41.9 - Sepsis, unspecified organism Discharge Date/Time: 02/20/23 16:27
[2023-02-20 12:18] LABS: BASOPHILS % (AUTO) 0.4 %; EOSINOPHILS % (AUTO) 0.1 %; HCT - HEMATOCRIT 33.8 % (42.0-52.0); HGB - HEMOGLOBIN 11.5 g/dL (14.0-18.0); LYMPHOCYTES % (AUTO) 3.3 %; MEAN CORPUSCULAR VOLUME 85.4 fL (80.0-94.0); MEAN PLATELET VOLUME 9.3 fL (7.4-11.4); MONOCYTES % (AUTO) 4.4 %; NEUTROPHILS % (AUTO) 88.6 %; PLT - PLATELET COUNT 426 10^3/uL (130-450); RED BLOOD COUNT 3.96 10^6/uL (4.70-6.10); RED CELL DISTRIBUTION WIDTH 12.3 % (12.0-15.0)
[2023-02-20 12:20] LABS: WHITE BLOOD COUNT 36.2 x10^3/uL (4.8-10.8)
[2023-02-20 12:21] LABS: ABNORMAL LYMPHS % (MANUAL) 0 %
[2023-02-20] MEDS ORDERED: VANCOMYCIN INJ 1.5 GM in SODIUM CHLORIDE 0.9% 500 ML IV STA (12:21)
[2023-02-20] MEDS ORDERED: SODIUM CHLORIDE 0.9% 2,177.25 ML IV STA (12:43)
[2023-02-20] MEDS ORDERED: ceFAZolin 2 GM in SODIUM CHLORIDE 0.9% MINIBAG 100 ML IV STA (12:44)
[2023-02-20 12:47] LABS: BAND NEUTROPHILS % (MANUAL) 11 %; BASOPHILS # (MANUAL) 0.4 10^3/uL (0-0.1); BASOPHILS % (MANUAL) 1 %; LYMPHOCYTES # (MANUAL) 1.4 10^3/uL (1.5-3.5); LYMPHOCYTES % (MANUAL) 4 %; MONOCYTES # (MANUAL) 0.7 10^3/uL (0.0-1.0); NEUTROPHILS # (MANUAL) 33.7 10^3/uL (1.5-6.6)
[2023-02-20 12:48] LABS: ALBUMIN 3.1 g/dL (3.2-5.5); ALBUMIN/GLOBULIN RATIO 0.8 (1.0-2.2); BILIRUBIN,TOTAL 0.7 mg/dL (0.2-1.0); CALCIUM 8.2 mg/dL (8.5-10.3); CREATININE 1.1 mg/dL (0.6-1.2); CRP - C-REACTIVE PROTEIN 29.1 mg/dL (0-1.0); DIFFERENTIAL COMMENT MANUAL DIFFERENTIAL; PLATELET ESTIMATE, MANUAL NORMAL (130-450,000) (NORMAL); PLATELET MORPHOLOGY NORMAL APPEARANCE (NORMAL); POTASSIUM 3.1 mmol/L (3.5-5.0); RBC MORPHOLOGY (MULTIPLE) NORMAL APPEARANCE (NORMAL); TOTAL PROTEIN 6.9 g/dL (6.7-8.2); WBC MORPHOLOGY (MULTIPLE) NORMAL APPEARANCE (NORMAL)
[2023-02-20] MEDS ORDERED: HYDROmorphone 1 MG/ML CARPUJECT IVP STA (12:48)
[2023-02-20] MEDS ORDERED: iohexoL-300 100 ML VIAL ONE (13:07)
--- NOTE | 2023-02-20 13:51 | XRAY Report ---
PROCEDURE: Chest 1 View X-Ray INDICATIONS: Sepsis TECHNIQUE: One view of the chest was acquired. COMPARISON: None. FINDINGS: Surgical changes and devices: None. Lungs and pleura: No pleural effusions or pneumothorax. Lungs are clear. Mediastinum: Mediastinal contours appear normal. Heart size is normal. Bones and chest wall: No suspicious bony lesions. Overlying soft tissues appear unremarkable. IMPRESSION: No acute cardiopulmonary process. Reviewed by: Ken Cox MD on 02/20/2023 1:50 PM PDT Approved by: Ken Cox MD on 02/20/2023 1:50 PM PDT Station ID: [id number]
[2023-02-20] MEDS ORDERED: LORazepam 2 MG/ML VIAL IVP STA (14:24)
[2023-02-20] MEDS ORDERED: ACETAMINOPHEN 325 MG TABLET PO PRN (14:28)
[2023-02-20] MEDS ORDERED: KETAMINE 500 MG/10 ML VIAL IM STA ×2 (14:33→14:41)
[2023-02-20] MEDS ORDERED: KETAMINE 500 MG/10 ML VIAL ONE (14:37)
[2023-02-20 14:44] LABS: MUDS CUTOFF CONCENTRATIONS CUTOFF CONC BELOW:
[2023-02-20 14:48] LABS: BILIRUBIN,URINE NEGATIVE (NEGATIVE); GLUCOSE, URINE (UA) NEGATIVE (NEGATIVE); KETONES,URINE (UA) NEGATIVE (NEGATIVE); LEUKOCYTE ESTERASE, URINE NEGATIVE (NEGATIVE); NITRITE,URINE NEGATIVE (NEGATIVE); OCCULT BLOOD,URINE TRACE-INTA (NEGATIVE); PROTEIN,URINE TRACE mg/dL (NEGATIVE); UROBILINOGEN,URINE 1 (NORMAL) E.U./dL (NORMAL)
[2023-02-20 14:49] LABS: CLARITY,URINE CLEAR (CLEAR)
[2023-02-20] MEDS ORDERED: SUCCINYLCHOLINE 200 MG/10 ML VIAL IVP STA (14:52)
[2023-02-20 15:01] LABS: AMPHETAMINE SCREEN,URINE POSITIVE (NEGATIVE); BARBITURATE SCREEN,UR NEGATIVE (NEGATIVE); BENZODIAZEPINES SCREEN, URINE NEGATIVE (NEGATIVE); COCAINE SCREEN URINE NEGATIVE (NEGATIVE); METHADONE SCREEN, URINE NEGATIVE (NEGATIVE); METHAMPHETAMINES SCREEN, URINE POSITIVE (NEGATIVE); OPIATE SCREEN, URINE NEGATIVE (NEGATIVE); OXYCODONE SCREEN, URINE NEGATIVE (NEGATIVE); PROPOXYPHENE SCREEN, URINE NEGATIVE (NEGATIVE); THC CANNABINOID SCREEN, URINE POSITIVE (NEGATIVE); TRICYCLIC ANTIDEPRESSANT,URINE NEGATIVE (NEGATIVE)
[2023-02-20] MEDS ORDERED: ACETAMINOPHEN 1,000 MG/100 ML 1,000 MG/100 ML BAG IV ONE (15:17)
[2023-02-20] MEDS: PROPOFOL 1000 MG/100 ML 1,000 MG/100 ML BOTTLE IV STA ×3 (15:19→19:20)
[2023-02-20] MEDS ORDERED: fentaNYL 100 MCG/2 ML VIAL IVP STA (15:30)
--- NOTE | 2023-02-20 15:39 | ED Physician Documentation ---
Restraint [id number] - Immediate Situation Face to Face Evaluation Date: 02/20/23 Face to Face Evaluation Time: 14:38 Restraint Classification: Violent, chemical Restraint Type: Locked extremity, Physical hold, Chemical - Patient's Reaction & Behaviors Safety: Physically unsafe Verbal: Screaming/Yelling Harm: Actual harm to self, Potential harm to others Physical: Aggressive behavior, Fighting restraints, Spitting, Kicking Other: Attempting removal of medically necessary device(s) - Behavioral Condition Attitude: Other Behavior: Agitated Orientation: Disoriented to all Mood: Anxious - Evaluation Review of Systems: unable to obtain; actively fight, kicking after initial dose of ketamine, Pertinent History/Illicit Drugs/Medications/Results: hx of methamphetamine/amphetamine abuse - Plan Need to Continue or Terminate Violent or Chemical Restraint: need to continue; will need to administer additional chemical sedation
--- NOTE | 2023-02-20 15:42 | ED Physician Documentation ---
Restraint Ltis-fu-Nrsf - Immediate Situation Face to Face Evaluation Date: 02/20/23 Face to Face Evaluation Time: 14:50 Restraint Classification: Violent, physical Restraint Type: Physical hold, Chemical - Patient's Reaction & Behaviors Safety: Physically unsafe, Follows Commands Verbal: Screaming/Yelling, Swearing Harm: Actual harm to self, Potential harm to others Physical: Aggressive behavior, Fighting restraints, Spitting - Behavioral Condition Attitude: Other (angry, agitated) Behavior: Agitated Orientation: Disoriented to all Mood: Anxious - Evaluation Review of Systems: unable to obtain; actively fight, kicking after initial dose of ketamine, Pertinent History/Illicit Drugs/Medications/Results: hx of methamphetamine/amphetamine abuse - Plan Need to Continue or Terminate Violent or Chemical Restraint: Continue to monitor. Given severe agitation, history of methamphetamine use we are considering intubation to protect patient's airway and ensure his safety.
--- NOTE | 2023-02-20 16:03 | XRAY Report ---
PROCEDURE: Chest for Line Placement INDICATIONS: INTUBATED/OG TUBE TECHNIQUE: One view of the chest was acquired. COMPARISON: 02/20/2023. FINDINGS: Surgical changes and devices: ET tube is in satisfactory position. NG tube extends to the GE junctio n and should be advanced. Lungs and pleura: No pleural effusions or pneumothorax. Lungs are clear. Mediastinum: Mediastinal contours appear normal. Heart size is normal. Bones and chest wall: No suspicious bony lesions. Overlying soft tissues appear unremarkable. IMPRESSION: ET tube in satisfactory position. Recommend advancement of NG tube, the tip of which projects to the GE junction. Reviewed by: Ken Cox MD on 02/20/2023 4:01 PM PDT Approved by: Ken Cox MD on 02/20/2023 4:01 PM PDT Station ID: [id number]
[2023-02-20] MEDS ORDERED: VECURONIUM 10 MG VIAL IVP ONE (16:04)
[2023-02-20] MEDS ORDERED: VECURONIUM 10 MG VIAL ONE (16:09)
[2023-02-20] MEDS: SODIUM CHLORIDE FLUSH 0.9% 10 ML SYRINGE IVP SCH (16:40)
[2023-02-20] MEDS: PROPOFOL 1000 MG/100 ML 1,000 MG/100 ML BOTTLE IV SCH (16:41)
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
--- NOTE | 2023-02-20 16:51 | CT Report ---
PROCEDURE: LOWER EXTREMITY W - LT INDICATIONS: left foot cellulitis TECHNIQUE: After administration of contrast 3 mm axial sections acquired of the left foot and ankle, with longo l and sagittal reformats. For radiation dose reduction, the following was used: automated exposure control, adjustment of mA and/or kV according to patient size. CONTRAST: 100mL Omni 300 COMPARISON: Left foot and ankle radiograph on the same day. FINDINGS: Image quality: Excellent. Bones: Alignment of left lower leg is anatomic. There is no acute fracture or dislocation. No cortic al disruption or periosteal reaction. No suspicious intraosseous lesions. No gross osteochondral inju valarie of talar dome. Soft tissue: There is soft tissue swelling surrounding lower leg extending to ankle and dorsal aspec t of left foot. No discrete drainable peripherally enhancing fluid collection is seen. No abnormal so ft tissue calcifications. Small tibiotalar joint effusion is seen, no evidence of calcified intra-art icular loose bodies. No gross full-thickness tendon rupture . Achilles tendon is intact. IMPRESSION: 1. Suggestion of cellulitis around ankle joint extending to dorsal aspect of left foot. No discrete d rainable abscess collection is seen. 2. No abnormal soft tissue calcifications. No full-thickness tendon rupture. 3. No CT evidence of osteomyelitis. No fracture or dislocation. No suspicious bony lesions. Reviewed by: Dano Thomas MD on 02/20/2023 4:49 PM PDT Approved by: Dano Thomas MD on 02/20/2023 4:49 PM PDT Station ID: [id number]
[2023-02-20] MEDS: SODIUM CHLORIDE 0.9% 1,000 ML IV SCH (17:01)
[2023-02-20 17:09] LABS: ABG BASE EXCESS -1.5 mmol/L (-2.0-3.0); ABG HCO3 22.6 mmol/L (22.0-26.0); ABG OXYGEN SATURATION 98 % (94-98); ABG PCO2 36 mmHg (34-45); ABG PH 7.42 (7.35-7.45); ABG PO2 125 mmHg (80-100); ABG TCO2 23.7 MMOL/L (21.0-29.0); ALLEN TEST POSITIVE
[2023-02-20 17:10] LABS: ABG MODE OF VENTILATION ASSIST/CONTROL; ABG RESPIRATORY RATE 20 b/min
[2023-02-20] MEDS ORDERED: GLYCOPYRROLATE 1 MG/5 ML VIAL IVP ONE (17:23)
[2023-02-20] MEDS: POTASSIUM CHLOR 10 MEQ/100 ML 10 MEQ/100 ML BAG IV SCH ×4 (17:48→22:21)
--- NOTE | 2023-02-20 17:56 | PHARMACY PROGRESS NOTE ---
- Best Possible Medication History Admit Date and Time: 02/20/23 1458 Processed by: Pharmacy Medication History completed: Yes Patient Interview: Pt unable to participate As the person ultimately responsible for medication therapy, providers are able to order a medication from an existing home medication list in [facility] via the "Reconcile Routine" prior to Confirmation of that medication by ground support equipment mechanic. Such practice is discouraged except when the physician, in their clinical judgment, deems that a medical need exists for a medication without regard to previous use.
--- NOTE | 2023-02-20 18:31 | PHARMACY PROGRESS NOTE ---
- Therapy Status Therapy status: Awaiting steady state Basis for treatment: Empirical Treatment indication: Sepsis/cellulitis Trough goal: 15-20 Concurrent antibiotics: Cefazolin 1 g q8h - MEERA Risk Acute Kidney Injury risk factors: Goal trough >15, Admission to ICU, Sepsis - Monitoring and Recommendation Clinical response to treatment: I&O Previous 24 hours 02/18/23 02/19/23 02/20/23 23:59 23:59 23:59 Intake Total 3891.946 Output Total 1015 Balance 2876.946 Lab Results 02/20/23 12:03 BUN 13 Creatinine 1.1 Estimated GFR (MDRD) 83 L Monitoring plan: Daily serum creatinine Areas for additional monitoring: IV to PO when appropriate, Therapy de-esca lation based on culture results Pharmacy recommendation: Continue current regime (Loading dose of 1.5 g given 02/20 @ 1330. Initiate maintenance dose of vancomycin 1 g q8h for predicted AUC of ~480 (Trough ~15))
[2023-02-20] MEDS ORDERED: FAMOTIDINE 20 MG TABLET PO SCH (21:00)
[2023-02-20] MEDS: ceFAZolin 1 GM in SODIUM CHLORIDE 0.9% MINIBAG 100 ML IV SCH (21:16)
[2023-02-20] MEDS: VANCOMYCIN INJ 1 GM in SODIUM CHLORIDE 0.9% 250 ML IV SCH (21:31)
[2023-02-20] MEDS: HYDROmorphone 0.5 MG/0.5 ML SYRINGE IVP PRN (23:32)
[2023-02-20] MEDS: LORazepam 2 MG/ML VIAL IVP PRN (23:50)
[2023-02-21] MEDS: PROPOFOL 1000 MG/100 ML 1,000 MG/100 ML BOTTLE IV STA (00:17)
--- NOTE | 2023-02-21 00:45 | PROVIDER PROGRESS NOTE ---
Statistical Machine Mechanic Note - Statistical Machine Mechanic Note Statistical Machine Mechanic Note: Pt is agitated despite propofol, lorazepam, hydromorphone. Concern for self extubation per RN. Ordered Precedex gtt.
[2023-02-21] MEDS: DEXMEDETOMIDINE 400 MCG/100 ML 100 ML IV SCH ×4 (01:15→19:31)
[2023-02-21] MEDS: HYDROmorphone 0.5 MG/0.5 ML SYRINGE IVP PRN ×4 (01:23→12:28)
[2023-02-21] MEDS: LORazepam 2 MG/ML VIAL IVP PRN ×2 (02:02→12:46)
[2023-02-21] MEDS: SODIUM CHLORIDE FLUSH 0.9% 10 ML SYRINGE IVP SCH ×4 (02:05→21:17)
[2023-02-21] MEDS: SODIUM CHLORIDE 0.9% 1,000 ML IV SCH ×2 (02:18→15:26)
[2023-02-21] MEDS ORDERED: ACETAMINOPHEN 650 MG SUPP PR PRN (03:45)
[2023-02-21 05:04] LABS: BASOPHILS % (AUTO) 0.3 %; EOSINOPHILS % (AUTO) 1.9 %; HCT - HEMATOCRIT 32.2 % (42.0-52.0); HGB - HEMOGLOBIN 10.7 g/dL (14.0-18.0); LYMPHOCYTES % (AUTO) 4.2 %; MEAN CORPUSCULAR HEMOGLOBIN 28.8 pg (27.0-31.0); MEAN CORPUSCULAR HGB CONC 33.2 g/dL (32.0-36.0); MEAN CORPUSCULAR VOLUME 86.8 fL (80.0-94.0); MEAN PLATELET VOLUME 10.3 fL (7.4-11.4); MONOCYTES % (AUTO) 3.3 %; NEUTROPHILS % (AUTO) 89.2 %; PLT - PLATELET COUNT 385 10^3/uL (130-450); RED BLOOD COUNT 3.71 10^6/uL (4.70-6.10); RED CELL DISTRIBUTION WIDTH 12.8 % (12.0-15.0); WHITE BLOOD COUNT 25.1 x10^3/uL (4.8-10.8)
[2023-02-21 05:05] LABS: CALCIUM, IONIZED 1.11 mmol/L (1.15-1.33); VBG PH 7.422 (7.31-7.41)
[2023-02-21 05:20] LABS: ABNORMAL LYMPHS % (MANUAL) 0 %
[2023-02-21] MEDS: ceFAZolin 1 GM in SODIUM CHLORIDE 0.9% MINIBAG 100 ML IV SCH ×3 (05:20→21:10)
[2023-02-21 05:23] LABS: CALCIUM 8.1 mg/dL (8.5-10.3); CREATININE 0.8 mg/dL (0.6-1.2); MAGNESIUM 2.2 mg/dL (1.7-2.8); PHOSPHORUS 2.2 mg/dL (2.5-4.6); POTASSIUM 3.1 mmol/L (3.5-5.0)
[2023-02-21 05:35] LABS: BAND NEUTROPHILS % (MANUAL) 6 %; EOSINOPHILS # (MANUAL) 0.3 10^3/uL (0-0.7); LYMPHOCYTES # (MANUAL) 1.5 10^3/uL (1.5-3.5); LYMPHOCYTES % (MANUAL) 6 %; MONOCYTES # (MANUAL) 1.3 10^3/uL (0.0-1.0); NEUTROPHILS # (MANUAL) 22.1 10^3/uL (1.5-6.6); PLATELET ESTIMATE, MANUAL NORMAL (130-450,000) (NORMAL); PLATELET MORPHOLOGY NORMAL APPEARANCE (NORMAL); RBC MORPHOLOGY (MULTIPLE) NORMAL APPEARANCE (NORMAL); WBC MORPHOLOGY (MULTIPLE) NORMAL APPEARANCE (NORMAL)
[2023-02-21 05:36] LABS: DIFFERENTIAL COMMENT MANUAL DIFFERENTIAL
[2023-02-21] MEDS: VANCOMYCIN INJ 1 GM in SODIUM CHLORIDE 0.9% 250 ML IV SCH ×2 (05:43→14:04)
[2023-02-21] MEDS ORDERED: CALCIUM GLUC 1,000MG/50ML-NACL 1,000 MG/50 ML BAG IV ONE (06:09)
[2023-02-21 06:10] LABS: ABG PCO2 30 mmHg (34-45); ABG PH 7.48 (7.35-7.45)
[2023-02-21 06:11] LABS: ABG BASE EXCESS -0.9 mmol/L (-2.0-3.0); ABG HCO3 21.7 mmol/L (22.0-26.0); ABG MODE OF VENTILATION ASSIST/CONTROL; ABG OXYGEN SATURATION 99 % (94-98); ABG RESPIRATORY RATE 16 b/min; ABG TCO2 22.7 MMOL/L (21.0-29.0); ALLEN TEST POSITIVE
[2023-02-21 06:13] LABS: ABG PO2 154 mmHg (80-100)
[2023-02-21] MEDS: PROPOFOL 1000 MG/100 ML 1,000 MG/100 ML BOTTLE IV SCH ×3 (07:44→20:55)
[2023-02-21] MEDS ORDERED: POTASSIUM PHOSPHATE 15 MMOL in SODIUM CHLORIDE 0.9% 250 ML IV ONE (08:00)
[2023-02-21] MEDS: ENOXAPARIN 40 MG/0.4 ML SYRINGE SUBQ SCH (08:28)
[2023-02-21] MEDS ORDERED: SODIUM CHLORIDE 0.9% 500 ML IV ONE ×2 (08:41→18:12)
[2023-02-21] MEDS: FAMOTIDINE 20 MG/2 ML VIAL IVP SCH ×2 (08:55→21:17)
--- NOTE | 2023-02-21 09:16 | PROVIDER PROGRESS NOTE ---
Subjective - Subjective Pt reports feeling: No change (When he is sedated, using Precedex and propofol, then has a gagging or coughing spell he becomes bradycardic in the 30s or lower. If the Precedex is turned off he is awake and moving all extremities, reaching for his ET tube, if he is only on propofol drip) Objective - Vital Signs/Intake & Output Reviewed Vital Signs: Yes Vital Signs: Vital Signs Temp Pulse Pulse Resp BP Pulse Ox 02/21/23 08:00 37.6 C 76 16 97/48 L 100 02/21/23 07:00 38.0 C H 80 17 99/47 L 100 02/21/23 06:58 79 02/21/23 06:00 38.3 C H 86 16 100/62 100 02/21/23 05:47 88 Intake & Output: Intake & Output 02/18/23 02/19/23 02/20/23 02/21/23 23:59 23:59 23:59 23:59 Intake Total 4746.855 1596.386 Output Total 2290 1575 Balance 2456.855 21.386 - Objective General Appearance: positive: Lethargic (on iv sedatives) Eyes Bilateral: positive: No lid inflammation ENT: positive: Other (Multiple excoriations and papules on his face and extrem) Neck: positive: Nml inspection Respiratory: positive: No respiratory distress, Breath sounds nml Cardiovascular: positive: Regular rate & rhythm, No murmur Abdomen: positive: No distention Skin: positive: Warm, Dry, Other (Multiple excoriations of his face and all 4 extremities, dirty nails of his left hand and both feet. Toe nails have also been excoriated partly) Extremities: positive: Other (Entire left foot is swollen, there is redness on the dorsal surface and blisters on the distal foot. Pulse is palp however) - Lab Results Fish Bones: 02/22/23 05:10 02/22/23 05:10 Other Labs: Lab Results x24hrs 02/21/23 02/21/23 02/21/23 Range/Units 06:05 04:19 04:19 WBC (4.8-10.8) x10^3/uL RBC (4.70-6.10) 10^6/uL Hgb (14.0-18.0) g/dL Hct (42.0-52.0) % MCV (80.0-94.0) fL MCH (27.0-31.0) pg MCHC (32.0-36.0) g/dL RDW (12.0-15.0) % Plt Count (130-450) 10^3/uL MPV (7.4-11.4) fL Neut # (Auto) Lymph # (Auto) [place] # (Auto) Eos # (Auto) Baso # (Auto) Absolute Nucleated RBC Total Counted Band Neuts % (Manual) (0 - 10) % Abnorm Lymph % (Manual) % Nucleated RBC % Neutrophils # (Manual) (1.5-6.6) 10^3/uL Lymphocytes # (Manual) (1.5-3.5) 10^3/uL Monocytes # (Manual) (0.0-1.0) 10^3/uL Eosinophils # (Manual) (0-0.7) 10^3/uL Basophils # (Manual) (0-0.1) 10^3/uL Differential Comment WBC Morphology (NORMAL) Platelet Estimate (NORMAL) Platelet Morphology (NORMAL) RBC Morph Micro Appear (NORMAL) Bld Gas Analysis Time 0609 Sample Site RIGHT RADIAL ABG pH 7.48 H (7.35-7.45) ABG pCO2 30 L (34-45) mmHg ABG pO2 154 H* (80-100) mmHg ABG HCO3 21.7 L (22.0-26.0) mmol/L ABG Total CO2 22.7 (21.0-29.0) MMOL/L ABG O2 Saturation 99 H (94-98) % ABG Base Excess -0.9 (-2.0-3.0) mmol/L Fortunato Test POSITIVE VBG pH 7.422 H (7.31-7.41) Ionized Calcium 1.11 L (1.15-1.33) mmol/L Respiration Rate 16 b/min O2 Delivery Device VENTILATOR Vent Mode ASSIST/CONTROL FiO2 Tidal Volume 500 mL PEEP 5 cmH2O Sodium 140 (135-145) mmol/L Potassium 3.1 L (3.5-5.0) mmol/L Chloride 104 (101-111) mmol/L Carbon Dioxide 27 (21-32) mmol/L Anion Gap 9.0 (6-13) BUN 9 (6-20) mg/dL Creatinine 0.8 (0.6-1.2) mg/dL Estimated GFR (MDRD) 120 (>89) Glucose 88 (70-100) mg/dL Lactic Acid (0.5-2.2) mmol/L Calcium 8.1 L (8.5-10.3) mg/dL Phosphorus 2.2 L (2.5-4.6) mg/dL Magnesium 2.2 (1.7-2.8) mg/dL Total Bilirubin (0.2-1.0) mg/dL AST (10-42) IU/L ALT (10-60) IU/L Alkaline Phosphatase (42-121) IU/L C-Reactive Protein (0-1.0) mg/dL Total Protein (6.7-8.2) g/dL Albumin (3.2-5.5) g/dL Globulin (2.1-4.2) g/dL Albumin/Globulin Ratio (1.0-2.2) Lipase (22-51) U/L Procalcitonin (<0.5) ng/mL Urine Color Urine Clarity (CLEAR) Urine pH (5.0-7.5) PH Ur Specific [place] (1.002-1.030) Urine Protein (NEGATIVE) mg/dL Urine Glucose (UA) (NEGATIVE) mg/dL Urine Ketones (NEGATIVE) mg/dL Urine Occult Blood (NEGATIVE) Urine Nitrite (NEGATIVE) Urine Bilirubin (NEGATIVE) Urine Urobilinogen (NORMAL) E.U./dL Ur Leukocyte Esterase (NEGATIVE) Ur Microscopic Review Urine Culture Comments Nasal Screen MRSA (PCR) (NEGATIVE) Urine Opiates Screen (NEGATIVE) Ur Oxycodone Screen (NEGATIVE) Urine Methadone Screen (NEGATIVE) Ur Propoxyphene Screen (NEGATIVE) Ur Barbiturates Screen (NEGATIVE) Ur Tricyclics Screen (NEGATIVE) Ur Phencyclidine Scrn (NEGATIVE) Ur Amphetamine Screen (NEGATIVE) U Methamphetamines Scrn (NEGATIVE) U Benzodiazepines Scrn (NEGATIVE) Urine Cocaine Screen (NEGATIVE) U Cannabinoids Screen (NEGATIVE) 02/21/23 02/20/23 02/20/23 Range/Units 04:19 17:01 16:20 WBC 25.1 H (4.8-10.8) x10^3/uL RBC 3.71 L (4.70-6.10) 10^6/uL Hgb 10.7 L (14.0-18.0) g/dL Hct 32.2 L (42.0-52.0) % MCV 86.8 (80.0-94.0) fL MCH 28.8 (27.0-31.0) pg MCHC 33.2 (32.0-36.0) g/dL RDW 12.8 (12.0-15.0) % Plt Count 385 (130-450) 10^3/uL MPV 10.3 (7.4-11.4) fL Neut # (Auto) Not Reportable Lymph # (Auto) Not Reportable [place] # (Auto) Not Reportable Eos # (Auto) Not Reportable Baso # (Auto) Not Reportable Absolute Nucleated RBC Not Reportable Total Counted 100 Band Neuts % (Manual) 6 (0 - 10) % Abnorm Lymph % (Manual) 0 % Nucleated RBC % Not Reportable Neutrophils # (Manual) 22.1 H (1.5-6.6) 10^3/uL Lymphocytes # (Manual) 1.5 (1.5-3.5) 10^3/uL Monocytes # (Manual) 1.3 H (0.0-1.0) 10^3/uL Eosinophils # (Manual) 0.3 (0-0.7) 10^3/uL Basophils # (Manual) 0.0 (0-0.1) 10^3/uL Differential Comment MANUAL DIFFERENTIAL WBC Morphology NORMAL APPEARANCE (NORMAL) Platelet Estimate NORMAL (130-450,000) (NORMAL) Platelet Morphology NORMAL APPEARANCE (NORMAL) RBC Morph Micro Appear NORMAL APPEARANCE (NORMAL) Bld Gas Analysis Time 1707 Sample Site RIGHT RADIAL ABG pH 7.42 (7.35-7.45) ABG pCO2 36 (34-45) mmHg ABG pO2 125 H (80-100) mmHg ABG HCO3 22.6 (22.0-26.0) mmol/L ABG Total CO2 23.7 (21.0-29.0) MMOL/L ABG O2 Saturation 98 (94-98) % ABG Base Excess -1.5 (-2.0-3.0) mmol/L Fortunato Test POSITIVE VBG pH (7.31-7.41) Ionized Calcium (1.15-1.33) mmol/L Respiration Rate 20 b/min O2 Delivery Device VENTILATOR Vent Mode ASSIST/CONTROL FiO2 40.00 Tidal Volume 500 mL PEEP 5 cmH2O Sodium (135-145) mmol/L Potassium (3.5-5.0) mmol/L Chloride (101-111) mmol/L Carbon Dioxide (21-32) mmol/L Anion Gap (6-13) BUN (6-20) mg/dL Creatinine (0.6-1.2) mg/dL Estimated GFR (MDRD) (>89) Glucose (70-100) mg/dL Lactic Acid (0.5-2.2) mmol/L Calcium (8.5-10.3) mg/dL Phosphorus (2.5-4.6) mg/dL Magnesium (1.7-2.8) mg/dL Total Bilirubin (0.2-1.0) mg/dL AST (10-42) IU/L ALT (10-60) IU/L Alkaline Phosphatase (42-121) IU/L C-Reactive Protein (0-1.0) mg/dL Total Protein (6.7-8.2) g/dL Albumin (3.2-5.5) g/dL Globulin (2.1-4.2) g/dL Albumin/Globulin Ratio (1.0-2.2) Lipase (22-51) U/L Procalcitonin (<0.5) ng/mL Urine Color Urine Clarity (CLEAR) Urine pH (5.0-7.5) PH Ur Specific [place] (1.002-1.030) Urine Protein (NEGATIVE) mg/dL Urine Glucose (UA) (NEGATIVE) mg/dL Urine Ketones (NEGATIVE) mg/dL Urine Occult Blood (NEGATIVE) Urine Nitrite (NEGATIVE) Urine Bilirubin (NEGATIVE) Urine Urobilinogen (NORMAL) E.U./dL Ur Leukocyte Esterase (NEGATIVE) Ur Microscopic Review Urine Culture Comments Nasal Screen MRSA (PCR) NEGATIVE (NEGATIVE) Urine Opiates Screen (NEGATIVE) Ur Oxycodone Screen (NEGATIVE) Urine Methadone Screen (NEGATIVE) Ur Propoxyphene Screen (NEGATIVE) Ur Barbiturates Screen (NEGATIVE) Ur Tricyclics Screen (NEGATIVE) Ur Phencyclidine Scrn (NEGATIVE) Ur Amphetamine Screen (NEGATIVE) U Methamphetamines Scrn (NEGATIVE) U Benzodiazepines Scrn (NEGATIVE) Urine Cocaine Screen (NEGATIVE) U Cannabinoids Screen (NEGATIVE) 0402/20/23 02/20/23 Range/Units 14:38 12:03 12:03 WBC (4.8-10.8) x10^3/uL RBC (4.70-6.10) 10^6/uL Hgb (14.0-18.0) g/dL Hct (42.0-52.0) % MCV (80.0-94.0) fL MCH (27.0-31.0) pg MCHC (32.0-36.0) g/dL RDW (12.0-15.0) % Plt Count (130-450) 10^3/uL MPV (7.4-11.4) fL Neut # (Auto) Lymph # (Auto) [place] # (Auto) Eos # (Auto) Baso # (Auto) Absolute Nucleated RBC Total Counted Band Neuts % (Manual) (0 - 10) % Abnorm Lymph % (Manual) % Nucleated RBC % Neutrophils # (Manual) (1.5-6.6) 10^3/uL Lymphocytes # (Manual) (1.5-3.5) 10^3/uL Monocytes # (Manual) (0.0-1.0) 10^3/uL Eosinophils # (Manual) (0-0.7) 10^3/uL Basophils # (Manual) (0-0.1) 10^3/uL Differential Comment WBC Morphology (NORMAL) Platelet Estimate (NORMAL) Platelet Morphology (NORMAL) RBC Morph Micro Appear (NORMAL) Bld Gas Analysis Time Sample Site ABG pH (7.35-7.45) ABG pCO2 (34-45) mmHg ABG pO2 (80-100) mmHg ABG HCO3 (22.0-26.0) mmol/L ABG Total CO2 (21.0-29.0) MMOL/L ABG O2 Saturation (94-98) % ABG Base Excess (-2.0-3.0) mmol/L Fortunato Test VBG pH (7.31-7.41) Ionized Calcium (1.15-1.33) mmol/L Respiration Rate b/min O2 Delivery Device Vent Mode FiO2 Tidal Volume mL PEEP cmH2O Sodium (135-145) mmol/L Potassium (3.5-5.0) mmol/L Chloride (101-111) mmol/L Carbon Dioxide (21-32) mmol/L Anion Gap (6-13) BUN (6-20) mg/dL Creatinine (0.6-1.2) mg/dL Estimated GFR (MDRD) (>89) Glucose (70-100) mg/dL Lactic Acid 1.1 (0.5-2.2) mmol/L Calcium (8.5-10.3) mg/dL Phosphorus (2.5-4.6) mg/dL Magnesium (1.7-2.8) mg/dL Total Bilirubin (0.2-1.0) mg/dL AST (10-42) IU/L ALT (10-60) IU/L Alkaline Phosphatase (42-121) IU/L C-Reactive Protein (0-1.0) mg/dL Total Protein (6.7-8.2) g/dL Albumin (3.2-5.5) g/dL Globulin (2.1-4.2) g/dL Albumin/Globulin Ratio (1.0-2.2) Lipase (22-51) U/L Procalcitonin 52.48 H* (<0.5) ng/mL Urine Color DARK YELLOW Urine Clarity CLEAR (CLEAR) Urine pH 6.0 (5.0-7.5) PH Ur Specific [place] 1.010 (1.002-1.030) Urine Protein TRACE (NEGATIVE) mg/dL Urine Glucose (UA) NEGATIVE (NEGATIVE) mg/dL Urine Ketones NEGATIVE (NEGATIVE) mg/dL Urine Occult Blood TRACE-INTA (NEGATIVE) Urine Nitrite NEGATIVE (NEGATIVE) Urine Bilirubin NEGATIVE (NEGATIVE) Urine Urobilinogen 1 (NORMAL) (NORMAL) E.U./dL Ur Leukocyte Esterase NEGATIVE (NEGATIVE) Ur Microscopic Review NOT INDICATED Urine Culture Comments NOT INDICATED Nasal Screen MRSA (PCR) (NEGATIVE) Urine Opiates Screen NEGATIVE (NEGATIVE) Ur Oxycodone Screen NEGATIVE (NEGATIVE) Urine Methadone Screen NEGATIVE (NEGATIVE) Ur Propoxyphene Screen NEGATIVE (NEGATIVE) Ur Barbiturates Screen NEGATIVE (NEGATIVE) Ur Tricyclics Screen NEGATIVE (NEGATIVE) Ur Phencyclidine Scrn NEGATIVE (NEGATIVE) Ur Amphetamine Screen POSITIVE H (NEGATIVE) U Methamphetamines Scrn POSITIVE H (NEGATIVE) U Benzodiazepines Scrn NEGATIVE (NEGATIVE) Urine Cocaine Screen NEGATIVE (NEGATIVE) U Cannabinoids Screen POSITIVE H (NEGATIVE) 02/20/23 02/20/23 Range/Units 12:03 12:03 WBC 36.2 H* (4.8-10.8) x10^3/uL RBC 3.96 L (4.70-6.10) 10^6/uL Hgb 11.5 L (14.0-18.0) g/dL Hct 33.8 L (42.0-52.0) % MCV 85.4 (80.0-94.0) fL MCH 29.0 (27.0-31.0) pg MCHC 34.0 (32.0-36.0) g/dL RDW 12.3 (12.0-15.0) % Plt Count 426 (130-450) 10^3/uL MPV 9.3 (7.4-11.4) fL Neut # (Auto) Not Reportable Lymph # (Auto) Not Reportable [place] # (Auto) Not Reportable Eos # (Auto) Not Reportable Baso # (Auto) Not Reportable Absolute Nucleated RBC Not Reportable Total Counted 100 Band Neuts % (Manual) 11 H (0 - 10) % Abnorm Lymph % (Manual) 0 % Nucleated RBC % Not Reportable Neutrophils # (Manual) 33.7 H (1.5-6.6) 10^3/uL Lymphocytes # (Manual) 1.4 L (1.5-3.5) 10^3/uL Monocytes # (Manual) 0.7 (0.0-1.0) 10^3/uL Eosinophils # (Manual) 0.0 (0-0.7) 10^3/uL Basophils # (Manual) 0.4 H (0-0.1) 10^3/uL Differential Comment MANUAL DIFFERENTIAL WBC Morphology NORMAL APPEARANCE (NORMAL) Platelet Estimate NORMAL (130-450,000) (NORMAL) Platelet Morphology NORMAL APPEARANCE (NORMAL) RBC Morph Micro Appear NORMAL APPEARANCE (NORMAL) Bld Gas Analysis Time Sample Site ABG pH (7.35-7.45) ABG pCO2 (34-45) mmHg ABG pO2 (80-100) mmHg ABG HCO3 (22.0-26.0) mmol/L ABG Total CO2 (21.0-29.0) MMOL/L ABG O2 Saturation (94-98) % ABG Base Excess (-2.0-3.0) mmol/L Fortunato Test VBG pH (7.31-7.41) Ionized Calcium (1.15-1.33) mmol/L Respiration Rate b/min O2 Delivery Device Vent Mode FiO2 Tidal Volume mL PEEP cmH2O Sodium 127 L (135-145) mmol/L Potassium 3.1 L (3.5-5.0) mmol/L Chloride 90 L (101-111) mmol/L Carbon Dioxide 25 (21-32) mmol/L Anion Gap 12.0 (6-13) BUN 13 (6-20) mg/dL Creatinine 1.1 (0.6-1.2) mg/dL Estimated GFR (MDRD) 83 L (>89) Glucose 118 H (70-100) mg/dL Lactic Acid (0.5-2.2) mmol/L Calcium 8.2 L (8.5-10.3) mg/dL Phosphorus (2.5-4.6) mg/dL Magnesium (1.7-2.8) mg/dL Total Bilirubin 0.7 (0.2-1.0) mg/dL AST 50 H (10-42) IU/L ALT 55 (10-60) IU/L Alkaline Phosphatase 78 (42-121) IU/L C-Reactive Protein 29.1 H (0-1.0) mg/dL Total Protein 6.9 (6.7-8.2) g/dL Albumin 3.1 L (3.2-5.5) g/dL Globulin 3.8 (2.1-4.2) g/dL Albumin/Globulin Ratio 0.8 L (1.0-2.2) Lipase 28 (22-51) U/L Procalcitonin (<0.5) ng/mL Urine Color Urine Clarity (CLEAR) Urine pH (5.0-7.5) PH Ur Specific [place] (1.002-1.030) Urine Protein (NEGATIVE) mg/dL Urine Glucose (UA) (NEGATIVE) mg/dL Urine Ketones (NEGATIVE) mg/dL Urine Occult Blood (NEGATIVE) Urine Nitrite (NEGATIVE) Urine Bilirubin (NEGATIVE) Urine Urobilinogen (NORMAL) E.U./dL Ur Leukocyte Esterase (NEGATIVE) Ur Microscopic Review Urine Culture Comments Nasal Screen MRSA (PCR) (NEGATIVE) Urine Opiates Screen (NEGATIVE) Ur Oxycodone Screen (NEGATIVE) Urine Methadone Screen (NEGATIVE) Ur Propoxyphene Screen (NEGATIVE) Ur Barbiturates Screen (NEGATIVE) Ur Tricyclics Screen (NEGATIVE) Ur Phencyclidine Scrn (NEGATIVE) Ur Amphetamine Screen (NEGATIVE) U Methamphetamines Scrn (NEGATIVE) U Benzodiazepines Scrn (NEGATIVE) Urine Cocaine Screen (NEGATIVE) U Cannabinoids Screen (NEGATIVE) Sepsis Event Note (H) - Evaluation Current Stage of Sepsis: Sepsis Possible source of Sepsis: positive: Skin/soft tissue - Sepsis Criteria Sepsis Criteria: Recorded Temperature greater than 38.3C or Less than 36C, Re corded Heart Rate greater than 90 bpm, WBC count greater than 12,000 or less than 4000, STAPLE LASTER: altered consciousness (unrelated to primary neuro pathology) Assessment/Plan - Problem List (1) Sepsis Impression: Sepsis criteria met include tachycardia, fever, elevated white cell count with the source being his left foot cellulitis. Labs and VS were reviewed. His WBC has decreased from 36 to 25, he spiked a fever overnight to 38.4C, Today his HR is 40-80, but his BP is "soft" at 90 syst occasionally Plan: Continue empiric iv Ancef, iv Vancomycin. We will adjust those antibiotics on the basis of blood culture results which were drawn in the emergency room at admission on 02/20. We were also packing his body with ice bags to lower his temperature in addition to IV Tylenol 650 mg every 6 hours as needed. Continue these. Continue iv fluid resuscitation Labs will be daily CBC, BMP. Qualifiers: Sepsis type: sepsis due to unspecified organism Severe sepsis acute organ dysfunction type: unspecified Severe sepsis shock status: without septic shock (2) Cellulitis of left foot Impression: The L foot is tensely swollen with skin that is now blistering and draining serous fluid from the tense edema and the skin under pressure. But there is no ulcer. The skin is hot to touch, slightly red. He does have toenails that are dirty, and some seem to be missing. But there is no paronychia or onychomycosis. Imaging showed no joint involvement and no osteomyelitis or fractures. Plan: Today is Day #2 of Ancef and iv Vancomycin. His grandmother shared with us that he was hospitalized for many weeks due to a soft tissue abdominal wall infection in 2019. Will request records from [facility] for that stay>> We got a message back from that he has never been there as an inpatient (3) Excoriation (skin-picking) disorder Impression: These could be from his hyperactivity, or from developmental delay, or side effect of his drug abuse Plan: The systemic antibiotics are covering for any localized infections associated with these multiple lesions that are seen on his face and extremities (legs mostly) (4) Drug withdrawal delirium Conclusion/Plan: Presumably this was due to methamphetamine withdrawal. Patient was intubated, and remains on the vent, on Propofol and Precedex (Precedex was added overnight last night by Telemedicine Dr), in the ICU. Also Ativan 1 mg every 2 hours prn agitation was tried and did not sedate him , per night RN. I predict he was also withdrawing from some sedative as well, therefore, which caused the agitation He did get Ketamine in the ER, when he started to become combative, and Ketamine can cause hypersalivation and bronchorrhea. The patient remains intubated and will make sure he gets suctioning and proper positioning to control his secretions. Rechecked blood gas this morning does show that he is oxygenating well, but slightly overbreathing the vent rate. This a.m. his chest x-ray shows equipment in good positions and no lung pathology. Plan: We will adjust his Propofol and Precedex drips to see if he is awake and alert enough to be able to follow commands to then be extubated. (5) Drug abuse and dependence Conclusion/Plan: Urine toxicology screen was positive for amphetamines, methamphetamines, cannabinoids. It was negative for opioids, which he told ED provider he uses. Patient explained to ER staff that he also does fentanyl at times. Our drug screen does not check for that. Plan: After he is medically stable, extubated and can communicate, will ask for a SW consult. (6) Hypokalemia Conclusion/Plan: Plan: We will give IV K riders and continue the ICU electrolyte protocol. (7) Hyponatremia Conclusion/Plan: Resolved There was no history of cirrhosis or congestive heart failure, and fluid overloaded was not present, therefore we suspected dehydration and lack of p.o. intake as the cause of his hyponatremia. Sodium has increased to 140 today after being on NS at 100 cc an hour since admission Plan: Will add iv fluids D5 1/2NS with KCL today. Follow BMP daily.
--- NOTE | 2023-02-21 09:18 | XRAY Report ---
PROCEDURE: Chest for Line Placement INDICATIONS: ng tube repositioned TECHNIQUE: One view of the chest was acquired. COMPARISON: 02/20/2023. FINDINGS: Surgical changes and devices: Nasogastric tube and endotracheal tube are well-positioned. Lungs and pleura: No pleural effusions or pneumothorax. Lungs are clear. Mediastinum: Mediastinal contours appear normal. Heart size is normal. Bones and chest wall: No suspicious bony lesions. Overlying soft tissues appear unremarkable. IMPRESSION: Endotracheal tube appears well-positioned. Nasogastric tube appears well-positioned. Reviewed by: Deuce Sosa on 02/21/2023 9:17 AM PDT Approved by: Deuce Sosa on 02/21/2023 9:17 AM PDT Station ID: [id number]
[2023-02-21] MEDS ORDERED: D5.45NS W/20 MEQ KCL 1,000 ML IV SCH (11:00)
[2023-02-21 13:33] LABS: PHOSPHORUS 3.6 mg/dL (2.5-4.6); POTASSIUM 3.4 mmol/L (3.5-5.0)
[2023-02-21] MEDS: ACETAMINOPHEN 1,000 MG/100 ML 1,000 MG/100 ML BAG IV PRN (15:39)
[2023-02-21] MEDS: D5.45NS W/20 MEQ KCL 1,000 ML IV SCH (16:05)
[2023-02-21] MEDS ORDERED: VANCOMYCIN INJ 1 GM, VANCOMYCIN INJ 250 MG in SODIUM CHLORIDE 0.9% 250 ML IV SCH (17:09)
--- NOTE | 2023-02-21 17:17 | PHARMACY PROGRESS NOTE ---
- Therapy Status Vancomycin regimen day #: 2 Therapy status: Trough subtherapeutic Basis for treatment: Empirical Trough goal: 15-20 - MEERA Risk Risk level for Acute Kidney Injury: Moderate (02/21 LEVEL DRAWN AT 1315, REGIMEN=[id number], LAST WQTK=2853. CALCULATED AUC/XUA=864. WILL INCREASE DOSE TO 1.25G Q 8H FOR TARGET AUC/JR~465.) Acute Kidney Injury risk factors: Goal trough >15, Admission to ICU, Sepsis - Monitoring and Recommendation Clinical response to treatment: I&O Previous 24 hours 02/19/23 02/20/23 02/21/23 23:59 23:59 23:59 Intake Total 4746.855 2976.939 Output Total 2290 1735 Balance 2456.855 1241.939 Lab Results 02/21/23 02/20/23 04:19 12:03 BUN 9 13 Creatinine 0.8 1.1 Estimated GFR (MDRD) 120 83 L Vancomycin Monitoring 02/21/23 02/21/23 16:13 13:15 Vancomycin Peak 33.2 Vancomycin Trough 11.0 Cultures 02/20/23 12:03 Blood - Left Arm Blood Culture - Preliminary NO GROWTH AFTER 1 DAY 02/20/23 12:06 Blood - Right Arm Blood Culture - Preliminary NO GROWTH AFTER 1 DAY Monitoring plan: Daily serum creatinine Areas for additional monitoring: IV to PO when appropriate, Therapy de- escalation based on culture results Pharmacy recommendation: Continue current regime (Loading dose of 1.5 g given 02/20 @ 1330. Initiate maintenance dose of vancomycin 1 g q8h for predicted AUC of ~480 (Trough ~15))
[2023-02-21] MEDS: VANCOMYCIN INJ 1 GM, VANCOMYCIN INJ 250 MG in SODIUM CHLORIDE 0.9% 250 ML IV SCH (20:07)
[2023-02-22] MEDS: DEXMEDETOMIDINE 400 MCG/100 ML 100 ML IV SCH ×2 (00:07→04:30)
[2023-02-22] MEDS: SODIUM CHLORIDE 0.9% 1,000 ML IV SCH ×2 (01:21→15:01)
[2023-02-22] MEDS: LORazepam 2 MG/ML VIAL IVP PRN ×2 (02:54→05:09)
[2023-02-22] MEDS ORDERED: SUCCINYLCHOLINE 200 MG/10 ML VIAL ONE (02:57)
[2023-02-22] MEDS ORDERED: ROCURONIUM 50 MG/5 ML VIAL ONE (03:01)
[2023-02-22] MEDS: PROPOFOL 1000 MG/100 ML 1,000 MG/100 ML BOTTLE IV SCH ×3 (03:17→16:16)
[2023-02-22] MEDS ORDERED: ROCURONIUM 50 MG/5 ML VIAL IVP ONE (03:22)
[2023-02-22] MEDS ORDERED: SUCCINYLCHOLINE 200 MG/10 ML VIAL IVP ONE (03:22)
[2023-02-22] MEDS: ONDANSETRON 4 MG/2 ML VIAL IVP PRN (03:29)
--- NOTE | 2023-02-22 03:29 | ED Physician Documentation ---
ED Addendum - Addendum Addendum: 02/22/23 03:20 I was called to the ICU at about 0230 to reintubate the patient after the patient bit through the captain/airline pilot tube leading to the balloon on the end of the ET tube. The balloon was unable to be reinflated and the patient had an air leak and was at risk for aspiration. The patient was admitted yesterday for while high on methamphetamines and septic with a left foot cellulitis. In the meantime, he has since been found to have a possible valvular vegetation and It is reported to me that the patient may be transferred later today for endocarditis. The patient was intubated yesterday, due to increasingly [id number] and agitated behavior in the setting of acute methamphetamine toxicity and being incompetent to sign himself out with the life-threatening condition of sepsis. He has not had any respiratory issues since presenting yesterday. I arrived to find that the patient was heavily, but incompletely, sedated on maximum doses of both Precedex and propofol. He was noted to have frequent tongue movements, chewing motions, and movements of all 4 extremities, though mild. He had clear breath sounds bilaterally with good air entry with bagging. I spoke with his primary nurse and the ICU and she did state that there were as needed orders for both Ativan and Dilaudid, but they had not been administering these prior, and had just given dose of Ativan before I walked in the room. The patient's oxygen saturation was 98 to 100% on 30% FiO2, despite the air leak. Respiratory was on hand and manually bagging the patient. I did request 100 mg of succinylcholine to be given initially and then did reintubate the patient with a Mathis 3 blade and a 7.5 Salv[place]orean endotracheal tube. Patient had moderate secretions and these were suctioned out but overall, the intubation was very smooth and without incident. The tube was visualized going through the cords and the patient had good breath sounds bilaterally with bagging immediately following intubation. No air entry was noted in the stomach. Chest x-ray following intubation did demonstrate good tube placement in the trachea, though the tube could stand to be moved down a couple of centimeters, which it was from 25 to 23 cm at the teeth. Breath sounds following advancement of the tube continued to be clear and equal bilaterally. At this point in time, I have recommended to the ICU nursing staff that the patient be more aggressively treated with his as needed sedatives, as he is already maxed out on Precedex and propofol. I will defer to the hospitalist team for further management of this patient's sedation, as my attention is needed in my own department where I have acutely ill patients.
[2023-02-22] MEDS: VANCOMYCIN INJ 1 GM, VANCOMYCIN INJ 250 MG in SODIUM CHLORIDE 0.9% 250 ML IV SCH ×3 (03:56→19:44)
[2023-02-22] MEDS: HYDROmorphone 0.5 MG/0.5 ML SYRINGE IVP PRN ×4 (03:56→19:58)
[2023-02-22] MEDS: SODIUM CHLORIDE FLUSH 0.9% 10 ML SYRINGE IVP PRN ×4 (03:57→19:58)
--- NOTE | 2023-02-22 03:57 | PROVIDER PROGRESS NOTE ---
Coin Wrapping Machine Operator Note - Coin Wrapping Machine Operator Note Coin Wrapping Machine Operator Note: Pt self extubated, re-intubated by ER provider, please refer to her documentation. Case reviewed with ER provider and RN. Currently pt is appropriately sedated on propofol, precedex, and just received IV push Ativan. Discussed with RN will order Versed drip on standby if insufficient sedation, however for now will attempt to control with IV pushes in addition to propofol/precedex drips.
[2023-02-22] MEDS: ceFAZolin 1 GM in SODIUM CHLORIDE 0.9% MINIBAG 100 ML IV SCH ×3 (05:09→20:45)
[2023-02-22 05:36] LABS: BASOPHILS # (AUTO) 0.1 10^3/uL (0.0-0.1); BASOPHILS % (AUTO) 0.4 %; EOSINOPHILS # (AUTO) 0.3 10^3/uL (0.0-0.7); EOSINOPHILS % (AUTO) 1.4 %; HCT - HEMATOCRIT 30.1 % (42.0-52.0); LYMPHOCYTES # (AUTO) 1.2 10^3/uL (1.5-3.5); LYMPHOCYTES % (AUTO) 6.2 %; MEAN CORPUSCULAR HEMOGLOBIN 29.2 pg (27.0-31.0); MEAN CORPUSCULAR HGB CONC 33.2 g/dL (32.0-36.0); MEAN PLATELET VOLUME 10.1 fL (7.4-11.4); MONOCYTES # (AUTO) 0.8 10^3/uL (0.0-1.0); MONOCYTES % (AUTO) 4.3 %; NEUTROPHILS # (AUTO) 16.9 10^3/uL (1.5-6.6); NEUTROPHILS % (AUTO) 86.8 %; PLT - PLATELET COUNT 408 10^3/uL (130-450); RED BLOOD COUNT 3.42 10^6/uL (4.70-6.10); RED CELL DISTRIBUTION WIDTH 13.4 % (12.0-15.0); WHITE BLOOD COUNT 19.4 x10^3/uL (4.8-10.8)
[2023-02-22 05:38] LABS: CALCIUM, IONIZED 1.08 mmol/L (1.15-1.33); VBG PH 7.461 (7.31-7.41)
[2023-02-22 05:50] LABS: ALBUMIN 2.2 g/dL (3.2-5.5); ALBUMIN/GLOBULIN RATIO 0.6 (1.0-2.2); BILIRUBIN,TOTAL 0.6 mg/dL (0.2-1.0); CALCIUM 7.9 mg/dL (8.5-10.3); CREATININE 0.7 mg/dL (0.6-1.2); PHOSPHORUS 3.2 mg/dL (2.5-4.6); POTASSIUM 3.6 mmol/L (3.5-5.0); TOTAL PROTEIN 5.6 g/dL (6.7-8.2)
[2023-02-22] MEDS ORDERED: CALCIUM GLUC 1,000MG/50ML-NACL 1,000 MG/50 ML BAG IV ONE ×3 (06:20→22:46)
[2023-02-22] MEDS: MIDAZOLAM DRIP 50 MG/50 ML 50 MG/50 ML BAG IV SCH ×2 (08:02→16:49)
[2023-02-22] MEDS: FAMOTIDINE 20 MG/2 ML VIAL IVP SCH ×2 (08:02→20:45)
[2023-02-22] MEDS: ENOXAPARIN 40 MG/0.4 ML SYRINGE SUBQ SCH (08:02)
[2023-02-22] MEDS: MULTIVITAMIN W/MINERALS TABLET PO SCH (08:05)
[2023-02-22] MEDS: SODIUM CHLORIDE FLUSH 0.9% 10 ML SYRINGE IVP SCH ×2 (08:06→18:17)
[2023-02-22] MEDS: DEXMEDETOMIDINE 400 MCG in SODIUM CHLORIDE 0.9% 100ML 96 ML IV SCH ×4 (08:23→22:02)
--- NOTE | 2023-02-22 09:28 | XRAY Report ---
PROCEDURE: Post ET Tube 1V CXR INDICATIONS: Confirm ET placement. TECHNIQUE: One view of the chest was acquired. COMPARISON: None. FINDINGS: Surgical changes and devices: Endotracheal tube tip projects over the midthoracic trachea. Feeding t ube passes below the diaphragm. Lungs and pleura: No pleural effusions or pneumothorax. Lungs are clear. Mediastinum: Mediastinal contours appear normal. Heart size is normal. Bones and chest wall: No suspicious bony lesions. Overlying soft tissues appear unremarkable. IMPRESSION: Appropriately positioned support devices. Findings are concordant with preliminary interpretation provided by [facility]. Reviewed by: Brody Donohue on 02/22/2023 9:27 AM PDT Approved by: Brody Donohue on 02/22/2023 9:27 AM PDT Station ID: [id number]
--- NOTE | 2023-02-22 10:14 | XRAY Report ---
PROCEDURE: Abdomen 1 View X-Ray INDICATIONS: OG tube placement verification TECHNIQUE: One view of the abdomen acquired. COMPARISON: Chest x-ray 02/22/2023 FINDINGS: Surgical changes and devices: Nasogastric tube is present with distal tip projecting over the gastric bubble in the left hemiabdomen. Bowel: Bowel gas pattern is normal. Soft tissues: No suspicious abdominal calcifications. Visualized solid organ contours appear normal in size. Bones: No suspicious bony lesions. IMPRESSION: Nasogastric tube overlying appropriate position. Reviewed by: Hawa Pacheco MD on 02/22/2023 10:12 AM PDT Approved by: Hawa Pacheco MD on 02/22/2023 10:12 AM PDT Station ID: [id number]
[2023-02-22] MEDS: polyethylene glycoL 3350 17 GM PACKET PO SCH (12:06)
--- NOTE | 2023-02-22 14:53 | PROVIDER PROGRESS NOTE ---
Subjective - Subjective Pt reports feeling: No change Subjective: When his sedation was lightened on the propofol and Precedex, he extubated himself last night. He was reintubated at and a Versed drip has been added, he is more sedated today, on the vent. Objective - Vital Signs/Intake & Output Reviewed Vital Signs: Yes Vital Signs: Vital Signs Temp Pulse Pulse Resp BP Pulse Ox 02/22/23 14:00 37.6 C 61 18 121/73 100 02/22/23 13:37 62 02/22/23 13:00 37.6 C 62 20 122/70 100 02/22/23 12:00 37.6 C 62 17 125/69 99 02/22/23 11:09 66 02/22/23 11:00 37.7 C 60 19 131/74 H 100 Intake & Output: Intake & Output 02/19/23 02/20/23 02/21/23 02/22/23 23:59 23:59 23:59 23:59 Intake Total 4746.855 4703.427 3502.866 Output Total 2290 2008 1204 Balance 2456.855 2695.427 2298.866 - Objective General Appearance: positive: Other (Sedated on 3 iv drips) Eyes Bilateral: positive: No lid inflammation ENT: positive: No signs of dehydration, Other (Multiple red excoriations and papules on his face and extremities) Neck: positive: Nml inspection Respiratory: positive: No respiratory distress, Breath sounds nml Cardiovascular: positive: Regular rate & rhythm, No murmur Abdomen: positive: No distention Skin: positive: Warm, Dry, Other (He has multiple excoriated red lesions on his face and both extremities, mostly in the legs. None of these have purulent centers.) Extremities: positive: Other (Left foot is red and swollen and has blisters with serous oozing. Toenails are excoriated and dirty) Neurologic/Psychiatric: positive: Other (sedated on iv meds) - Lab Results Fish Bones: 02/26/23 04:39 02/26/23 04:39 Other Labs: Lab Results x24hrs 02/22/23 02/22/23 02/22/23 Range/Units 05:10 05:10 05:10 WBC (4.8-10.8) x10^3/uL RBC (4.70-6.10) 10^6/uL Hgb (14.0-18.0) g/dL Hct (42.0-52.0) % MCV (80.0-94.0) fL MCH (27.0-31.0) pg MCHC (32.0-36.0) g/dL RDW (12.0-15.0) % Plt Count (130-450) 10^3/uL MPV (7.4-11.4) fL Neut # (Auto) (1.5-6.6) 10^3/uL Lymph # (Auto) (1.5-3.5) 10^3/uL [place] # (Auto) (0.0-1.0) 10^3/uL Eos # (Auto) (0.0-0.7) 10^3/uL Baso # (Auto) (0.0-0.1) 10^3/uL Absolute Nucleated RBC x10^3/uL Nucleated RBC % /100WBC VBG pH 7.461 H (7.31-7.41) Ionized Calcium 1.08 L (1.15-1.33) mmol/L Sodium 141 (135-145) mmol/L Potassium 3.6 (3.5-5.0) mmol/L Chloride 108 (101-111) mmol/L Carbon Dioxide 24 (21-32) mmol/L Anion Gap 9.0 (6-13) BUN 13 (6-20) mg/dL Creatinine 0.7 (0.6-1.2) mg/dL Estimated GFR (MDRD) 140 (>89) Glucose 117 H (70-100) mg/dL Calcium 7.9 L (8.5-10.3) mg/dL Phosphorus 3.2 (2.5-4.6) mg/dL Magnesium 2.0 (1.7-2.8) mg/dL Total Bilirubin 0.6 (0.2-1.0) mg/dL AST 54 H (10-42) IU/L ALT 39 (10-60) IU/L Alkaline Phosphatase 75 (42-121) IU/L Total Protein 5.6 L (6.7-8.2) g/dL Albumin 2.2 L (3.2-5.5) g/dL Globulin 3.4 (2.1-4.2) g/dL Albumin/Globulin Ratio 0.6 L (1.0-2.2) Prealbumin 3 L (18-45) mg/dL Triglycerides 96 ( - 149) mg/dL Last Dose Date Last Dose Time Vancomycin Peak (20.0-40.0) ug/mL 02/22/23 02/21/23 Range/Units 05:10 16:13 WBC 19.4 H (4.8-10.8) x10^3/uL RBC 3.42 L (4.70-6.10) 10^6/uL Hgb 10.0 L (14.0-18.0) g/dL Hct 30.1 L (42.0-52.0) % MCV 88.0 (80.0-94.0) fL MCH 29.2 (27.0-31.0) pg MCHC 33.2 (32.0-36.0) g/dL RDW 13.4 (12.0-15.0) % Plt Count 408 (130-450) 10^3/uL MPV 10.1 (7.4-11.4) fL Neut # (Auto) 16.9 H (1.5-6.6) 10^3/uL Lymph # (Auto) 1.2 L (1.5-3.5) 10^3/uL [place] # (Auto) 0.8 (0.0-1.0) 10^3/uL Eos # (Auto) 0.3 (0.0-0.7) 10^3/uL Baso # (Auto) 0.1 (0.0-0.1) 10^3/uL Absolute Nucleated RBC 0.00 x10^3/uL Nucleated RBC % 0.0 /100WBC VBG pH (7.31-7.41) Ionized Calcium (1.15-1.33) mmol/L Sodium (135-145) mmol/L Potassium (3.5-5.0) mmol/L Chloride (101-111) mmol/L Carbon Dioxide (21-32) mmol/L Anion Gap (6-13) BUN (6-20) mg/dL Creatinine (0.6-1.2) mg/dL Estimated GFR (MDRD) (>89) Glucose (70-100) mg/dL Calcium (8.5-10.3) mg/dL Phosphorus (2.5-4.6) mg/dL Magnesium (1.7-2.8) mg/dL Total Bilirubin (0.2-1.0) mg/dL AST (10-42) IU/L ALT (10-60) IU/L Alkaline Phosphatase (42-121) IU/L Total Protein (6.7-8.2) g/dL Albumin (3.2-5.5) g/dL Globulin (2.1-4.2) g/dL Albumin/Globulin Ratio (1.0-2.2) Prealbumin (18-45) mg/dL Triglycerides ( - 149) mg/dL Last Dose Date 02-21-2023 Last Dose Time 153 Vancomycin Peak 33.2 (20.0-40.0) ug/mL Sepsis Event Note (H) - Evaluation Current Stage of Sepsis: Sepsis Possible source of Sepsis: positive: Skin/soft tissue - Sepsis Criteria Sepsis Criteria: Recorded Temperature greater than 38.3C or Less than 36C, Recorded Heart Rate greater than 90 bpm, WBC count greater than 12,000 or less than 4000, SURVEY RESEARCHER: altered consciousness (unrelated to primary neuro pathology) Assessment/Plan - Problem List (1) Cellulitis of left foot Impression: The L foot is still swollen with skin that is now blistering and draining serous fluid from the tense edema and the skin under pressure. But there is no ulcer. The skin is hot to touch, slightly red. He does have toenails that are dirty, and some seem to be missing. But there is no paronychia or onychomycosis. Imaging showed no joint involvement and no osteomyelitis or fractures. His grandmother shared with us that he was hospitalized for many weeks due to a soft tissue abdominal wall infection in 2019. Will request records from [facility] for that stay>> We got a message back from that he has never been there as an inpatient Plan: Continue empric iv Ancef and iv Vancomycin. (2) Excoriation (skin-picking) disorder Impression: These could be from his hyperactivity/side effect of his drug abuse, or from habits from developmental delay Plan: The systemic antibiotics are covering for any localized infections associated with these multiple lesions that are seen on his face and extremities (legs mostly) (3) Drug withdrawal delirium Conclusion/Plan: Presumably this was due to some drug that he abused, and now he is going through withdrawal. I suspect he is withdrawing from some sedative which caused the agitation He did get Ketamine in the ER, when he started to become combative, and Ketamine can cause hypersalivation and bronchorrhea. The patient remains intubated and will make sure he gets suctioning and proper positioning to control his secretions. Plan: We will remain on the ventilator needing sedatives, since we do not know which drug he is withdrawing from We will adjust his sedative drips eventually to see if he is awake and alert enough to be able to follow commands to then be extubated. (4) On mechanical vent Patient was intubated, and remains on the vent, on Propofol and Precedex. Also Ativan iv pushes prn agitation was tried and did not sedate him, per night RN. Versed was added last night, and he is now quiet and not fighting the sedation. Since he will remain on the ventilator yet, we started NG tube feeds yesterday Plan: We will remain on the ventilator needing sedatives, since we do not know which drug he is withdrawing from We will try a weaning process again tomorrow (5) Bradycardia This was noticed when he was fighting the vent, and gagging when suctioned, therefore vasovagal. Plan: No specific treatment needed as these are short-lived even though severe bettina events (6) Drug abuse and dependence Conclusion/Plan: Urine toxicology screen was positive for amphetamines, methamphetamines, cannabinoids. It was negative for opioids, which he told ED provider he uses. Patient explained to ER staff that he also does fentanyl at times. Our drug screen does not check for that. Plan: After he is medically stable, extubated and can communicate, will ask for a SW consult. (7) Hypokalemia Conclusion/Plan: Plan: We will give IV K riders and continue the ICU electrolyte protocol. (8) Hyponatremia Conclusion/Plan: Resolved There was no history of cirrhosis or congestive heart failure, and fluid overloaded was not present, therefore we suspected dehydration and lack of p.o. intake as the cause of his hyponatremia. Sodium has increased to 140 today after being on NS at 100 cc an hour since admission Plan: Will continue NS and iv fluids D5 1/2NS with KCL Follow BMP daily. (9) Sepsis Impression: Resolved Sepsis criteria that were met included tachycardia, fever, elevated white cell count with the source being his left foot cellulitis. Labs and VS were reviewed. He has had no more fevers, the heart rate has normalized and the WBC has decreased from 36 down to 19 today Plan: Continue empiric antibx, iv Ofermev if needed for fever, ng feeds while he is still sedated and on the vent.
[2023-02-22] MEDS: CHLORHEXIDINE GLUCONATE 15 ML UDC PO SCH ×2 (15:01→20:45)
[2023-02-22 15:40] LABS: CALCIUM, IONIZED 1.05 mmol/L (1.15-1.33); VBG PH 7.502 (7.31-7.41)
[2023-02-22] MEDS: D5.45NS W/20 MEQ KCL 1,000 ML IV SCH (16:12)
[2023-02-22 21:42] LABS: CALCIUM, IONIZED 1.04 mmol/L (1.15-1.33); VBG PH 7.495 (7.31-7.41)
[2023-02-23] MEDS: PROPOFOL 1000 MG/100 ML 1,000 MG/100 ML BOTTLE IV SCH ×2 (00:19→05:00)
[2023-02-23] MEDS: MIDAZOLAM DRIP 50 MG/50 ML 50 MG/50 ML BAG IV SCH (00:25)
[2023-02-23] MEDS: DEXMEDETOMIDINE 400 MCG in SODIUM CHLORIDE 0.9% 100ML 96 ML IV SCH ×2 (01:33→05:05)
[2023-02-23] MEDS: HYDROmorphone 0.5 MG/0.5 ML SYRINGE IVP PRN ×3 (03:25→13:07)
[2023-02-23] MEDS: VANCOMYCIN INJ 1 GM, VANCOMYCIN INJ 250 MG in SODIUM CHLORIDE 0.9% 250 ML IV SCH ×3 (03:26→19:32)
[2023-02-23] MEDS: SODIUM CHLORIDE FLUSH 0.9% 10 ML SYRINGE IVP SCH ×5 (03:26→20:37)
[2023-02-23] MEDS: SODIUM CHLORIDE FLUSH 0.9% 10 ML SYRINGE IVP PRN ×2 (04:36→22:00)
[2023-02-23] MEDS: LORazepam 2 MG/ML VIAL IVP PRN ×2 (04:36→22:00)
[2023-02-23] MEDS: ceFAZolin 1 GM in SODIUM CHLORIDE 0.9% MINIBAG 100 ML IV SCH ×3 (04:56→20:44)
[2023-02-23 05:09] LABS: BASOPHILS % (AUTO) 0.3 %; EOSINOPHILS # (AUTO) 0.2 10^3/uL (0.0-0.7); EOSINOPHILS % (AUTO) 1.1 %; HCT - HEMATOCRIT 30.2 % (42.0-52.0); LYMPHOCYTES # (AUTO) 2.2 10^3/uL (1.5-3.5); LYMPHOCYTES % (AUTO) 15.8 %; MEAN CORPUSCULAR HEMOGLOBIN 29.2 pg (27.0-31.0); MEAN CORPUSCULAR HGB CONC 33.1 g/dL (32.0-36.0); MEAN PLATELET VOLUME 10.1 fL (7.4-11.4); MONOCYTES # (AUTO) 0.6 10^3/uL (0.0-1.0); NEUTROPHILS # (AUTO) 10.9 10^3/uL (1.5-6.6); NEUTROPHILS % (AUTO) 77.9 %; PLT - PLATELET COUNT 441 10^3/uL (130-450); RED BLOOD COUNT 3.43 10^6/uL (4.70-6.10); RED CELL DISTRIBUTION WIDTH 13.8 % (12.0-15.0)
[2023-02-23 05:21] LABS: CALCIUM 7.7 mg/dL (8.5-10.3); CREATININE 0.7 mg/dL (0.6-1.2); POTASSIUM 3.4 mmol/L (3.5-5.0)
[2023-02-23 05:31] LABS: CALCIUM, IONIZED 1.05 mmol/L (1.15-1.33); VBG PH 7.512 (7.31-7.41)
[2023-02-23] MEDS ORDERED: CALCIUM GLUC 1,000MG/50ML-NACL 1,000 MG/50 ML BAG IV ONE ×3 (05:50→22:11)
[2023-02-23] MEDS: SODIUM CHLORIDE 0.9% 1,000 ML IV SCH ×3 (06:17→21:52)
[2023-02-23] MEDS: ENOXAPARIN 40 MG/0.4 ML SYRINGE SUBQ SCH (08:05)
[2023-02-23] MEDS: FAMOTIDINE 20 MG/2 ML VIAL IVP SCH ×2 (08:05→21:51)
[2023-02-23] MEDS: polyethylene glycoL 3350 17 GM PACKET PO SCH (08:05)
[2023-02-23] MEDS: MULTIVITAMIN W/MINERALS TABLET PO SCH (08:05)
[2023-02-23] MEDS: CHLORHEXIDINE GLUCONATE 15 ML UDC PO SCH ×2 (08:06→21:51)
[2023-02-23] MEDS: HYDROmorphone 1 MG/ML CARPUJECT IVP PRN ×5 (14:21→22:32)
[2023-02-23] MEDS: ONDANSETRON 4 MG/2 ML VIAL IVP PRN ×2 (14:21→20:37)
[2023-02-23 16:09] LABS: CALCIUM, IONIZED 1.08 mmol/L (1.15-1.33); VBG PH 7.45 (7.31-7.41)
[2023-02-23] MEDS ORDERED: PROCHLORPERAZINE 10 MG/2 ML VIAL IVP PRN (17:45)
--- NOTE | 2023-02-23 17:46 | PROVIDER PROGRESS NOTE ---
Objective - Vital Signs/Intake & Output Reviewed Vital Signs: Yes Vital Signs: Vital Signs Temp Pulse Resp BP Pulse Ox 02/23/23 17:00 104 H 26 H 125/88 H 98 02/23/23 16:00 37.1 C 104 H 25 H 130/69 100 02/23/23 15:00 100 34 H 135/72 H 100 02/23/23 14:00 91 26 H 130/70 100 Intake & Output: Intake & Output 02/20/23 02/21/23 02/22/23 02/23/23 23:59 23:59 23:59 23:59 Intake Total 4746.855 4703.427 7634.799 4038.556 Output Total 2289 3866 2028 4490 Balance 2456.855 2695.427 5195.798 -107.109 - Objective General Appearance: positive: Moderate distress (He is weak, yet wanted to leave after awoke from sedatives, after extubation. He is coughing,, ringing up phlegm and is nauseated.) Eyes Bilateral: positive: Normal inspection ENT: positive: No signs of dehydration, Other (Hoarse voice. Multiple excoriated lesions on face, jaw.) Neck: positive: Nml inspection, No JVD Respiratory: positive: Breath sounds nml Cardiovascular: positive: Regular rate & rhythm, No murmur Abdomen: positive: Non-tender, Nml bowel sounds, No distention Skin: positive: Warm, Dry, Other (Multiple excoriated lesions of face, arms and legs, feet) Extremities: positive: Other (L foot swollen, red warm on dorsum, blisters are leaking) Neurologic/Psychiatric: positive: Oriented x3, Other (Lethargic) - Lab Results Fish Bones: 02/26/23 04:39 02/26/23 04:39 Other Labs: Lab Results x24hrs 02/23/23 02/23/23 02/23/23 Range/Units 16:02 05:23 04:38 WBC (4.8-10.8) x10^3/uL RBC (4.70-6.10) 10^6/uL Hgb (14.0-18.0) g/dL Hct (42.0-52.0) % MCV (80.0-94.0) fL MCH (27.0-31.0) pg MCHC (32.0-36.0) g/dL RDW (12.0-15.0) % Plt Count (130-450) 10^3/uL MPV (7.4-11.4) fL Neut # (Auto) (1.5-6.6) 10^3/uL Lymph # (Auto) (1.5-3.5) 10^3/uL [place] # (Auto) (0.0-1.0) 10^3/uL Eos # (Auto) (0.0-0.7) 10^3/uL Baso # (Auto) (0.0-0.1) 10^3/uL Absolute Nucleated RBC x10^3/uL Nucleated RBC % /100WBC VBG pH 7.450 H 7.512 H (7.31-7.41) Ionized Calcium 1.08 L 1.05 L (1.15-1.33) mmol/L Sodium (135-145) mmol/L Potassium (3.5-5.0) mmol/L Chloride (101-111) mmol/L Carbon Dioxide (21-32) mmol/L Anion Gap (6-13) BUN (6-20) mg/dL Creatinine (0.6-1.2) mg/dL Estimated GFR (MDRD) (>89) Glucose (70-100) mg/dL Calcium (8.5-10.3) mg/dL Phosphorus 3.2 (2.5-4.6) mg/dL Magnesium (1.7-2.8) mg/dL 02/23/23 02/23/23 02/23/23 Range/Units 04:38 04:38 04:38 WBC 14.0 H (4.8-10.8) x10^3/uL RBC 3.43 L (4.70-6.10) 10^6/uL Hgb 10.0 L (14.0-18.0) g/dL Hct 30.2 L (42.0-52.0) % MCV 88.0 (80.0-94.0) fL MCH 29.2 (27.0-31.0) pg MCHC 33.1 (32.0-36.0) g/dL RDW 13.8 (12.0-15.0) % Plt Count 441 (130-450) 10^3/uL MPV 10.1 (7.4-11.4) fL Neut # (Auto) 10.9 H (1.5-6.6) 10^3/uL Lymph # (Auto) 2.2 (1.5-3.5) 10^3/uL [place] # (Auto) 0.6 (0.0-1.0) 10^3/uL Eos # (Auto) 0.2 (0.0-0.7) 10^3/uL Baso # (Auto) 0.0 (0.0-0.1) 10^3/uL Absolute Nucleated RBC 0.00 x10^3/uL Nucleated RBC % 0.0 /100WBC VBG pH (7.31-7.41) Ionized Calcium (1.15-1.33) mmol/L Sodium 137 (135-145) mmol/L Potassium 3.4 L (3.5-5.0) mmol/L Chloride 109 (101-111) mmol/L Carbon Dioxide 25 (21-32) mmol/L Anion Gap 3.0 L (6-13) BUN 9 (6-20) mg/dL Creatinine 0.7 (0.6-1.2) mg/dL Estimated GFR (MDRD) 140 (>89) Glucose 134 H (70-100) mg/dL Calcium 7.7 L (8.5-10.3) mg/dL Phosphorus (2.5-4.6) mg/dL Magnesium 1.8 (1.7-2.8) mg/dL 02/22/23 Range/Units 21:30 WBC (4.8-10.8) x10^3/uL RBC (4.70-6.10) 10^6/uL Hgb (14.0-18.0) g/dL Hct (42.0-52.0) % MCV (80.0-94.0) fL MCH (27.0-31.0) pg MCHC (32.0-36.0) g/dL RDW (12.0-15.0) % Plt Count (130-450) 10^3/uL MPV (7.4-11.4) fL Neut # (Auto) (1.5-6.6) 10^3/uL Lymph # (Auto) (1.5-3.5) 10^3/uL [place] # (Auto) (0.0-1.0) 10^3/uL Eos # (Auto) (0.0-0.7) 10^3/uL Baso # (Auto) (0.0-0.1) 10^3/uL Absolute Nucleated RBC x10^3/uL Nucleated RBC % /100WBC VBG pH 7.495 H (7.31-7.41) Ionized Calcium 1.04 L (1.15-1.33) mmol/L Sodium (135-145) mmol/L Potassium (3.5-5.0) mmol/L Chloride (101-111) mmol/L Carbon Dioxide (21-32) mmol/L Anion Gap (6-13) BUN (6-20) mg/dL Creatinine (0.6-1.2) mg/dL Estimated GFR (MDRD) (>89) Glucose (70-100) mg/dL Calcium (8.5-10.3) mg/dL Phosphorus (2.5-4.6) mg/dL Magnesium (1.7-2.8) mg/dL Sepsis Event Note (H) - Evaluation Current Stage of Sepsis: Sepsis Possible source of Sepsis: positive: Skin/soft tissue - Sepsis Criteria Sepsis Criteria: Recorded Temperature greater than 38.3C or Less than 36C, Recorded Heart Rate greater than 90 bpm, WBC count greater than 12,000 or less than 4000, DISTRICT EXTENSION SERVICE AGENT: altered consciousness (unrelated to primary neuro pathology) Assessment/Plan - Problem List (1) Cellulitis of left foot Impression: The L foot is still swollen with skin that is now blistering and draining serous fluid from the tense edema and the skin under pressure. But there is no ulcer. The skin is hot to touch, slightly red. He does have toenails that are dirty, and some seem to be missing. But there is no paronychia or onychomycosis. Imaging showed no joint involvement and no osteomyelitis or fractures. His grandmother shared with us that he was hospitalized for many weeks due to a soft tissue abdominal wall infection in 2019. Will request records from [facility] for that stay>> We got a message back from that he has never been there as an inpatient Plan: Continjue iv Ancef and iv Vancomycin. Await blood cx results (2) Excoriation (skin-picking) disorder Impression: These could be from his hyperactivity/side effect of his drug abuse like Meth, or from habits from his developmental delay Plan: The systemic antibiotics are covering for any localized infections associated with these multiple lesions that are seen on his face and extremities (legs mostly) (3) Drug withdrawal delirium Conclusion/Plan: Presumably this was due to Fentanyl withdrawal. Patient did confirm with me after extubation that he uses alot of Fentanyl. Plan: Remain in ICU today, since he was just extubated, monitor neuro status for delerium or for resp distress (4) Drug abuse and dependence Conclusion/Plan: Urine toxicology screen was positive for amphetamines, methamphetamines, cannabinoids. It was negative for opioids, which he told ED provider he uses. Patient explained to ER staff that he also does fentanyl at times. Our drug screen does not check for that. Plan: After he is medically stable, extubated and can communicate, will ask for a SW consult. Is still too lethargic today. (5) Hypokalemia Conclusion/Plan: Plan: We will give IV K riders and continue the ICU electrolyte protocol. (6) Hyponatremia Conclusion/Plan: Resolved There was no history of cirrhosis or congestive heart failure, and fluid overloaded was not present, therefore we suspected dehydration and lack of p.o. intake as the cause of his hyponatremia. Sodium has increased to 140 today after being on NS at 100 cc an hour since admission Plan: Continue iv fluids until diet advanced and he is hydrating and eating. Follow BMP daily. (7) Sepsis Impression: Resolved Sepsis criteria that were met included tachycardia, fever, elevated white cell count with the source being his left foot cellulitis. Labs and VS were reviewed. He has had no more fevers, the heart rate has normalized and the WBC has decreased from 36 down to 19 today Plan: Continue empiric antibx, iv Ofermev if needed for fever (8) On mechanical vent He was successfully extubated to day and ng tube removed. Plan: Will try cler liquids and try oral meds (9) Bradycardia This was only seen when he was gagging or being suctioned while intubated
[2023-02-23] MEDS: guaiFENesin/CODEINE 5 ML UDC PO PRN (18:29)
[2023-02-23] MEDS: ACETAMINOPHEN 1,000 MG/100 ML 1,000 MG/100 ML BAG IV PRN (20:15)
[2023-02-23] MEDS: D5.45NS W/20 MEQ KCL 1,000 ML IV SCH (21:51)
[2023-02-23 22:09] LABS: CALCIUM, IONIZED 1.07 mmol/L (1.15-1.33); VBG PH 7.5 (7.31-7.41)
[2023-02-23] MEDS ORDERED: BENZOCAINE/MENTHOL LOZENGE MM PRN (23:23)
[2023-02-24] MEDS: LORazepam 2 MG/ML VIAL IVP PRN ×7 (00:05→21:35)
[2023-02-24] MEDS: SODIUM CHLORIDE FLUSH 0.9% 10 ML SYRINGE IVP SCH ×3 (00:05→16:28)
[2023-02-24] MEDS: guaiFENesin/CODEINE 5 ML UDC PO PRN (00:09)
[2023-02-24] MEDS: PHENOL THROAT SPRAY 177 ML MM PRN ×2 (00:18→03:46)
[2023-02-24] MEDS: HYDROmorphone 1 MG/ML CARPUJECT IVP PRN ×9 (00:24→23:59)
[2023-02-24] MEDS: SODIUM CHLORIDE FLUSH 0.9% 10 ML SYRINGE IVP PRN (00:24)
[2023-02-24] MEDS: VANCOMYCIN INJ 1 GM, VANCOMYCIN INJ 250 MG in SODIUM CHLORIDE 0.9% 250 ML IV SCH ×3 (03:46→19:09)
[2023-02-24] MEDS: ceFAZolin 1 GM in SODIUM CHLORIDE 0.9% MINIBAG 100 ML IV SCH ×3 (04:55→20:26)
[2023-02-24 05:08] LABS: CALCIUM, IONIZED 1.04 mmol/L (1.15-1.33); VBG PH 7.477 (7.31-7.41)
[2023-02-24 05:10] LABS: BASOPHILS # (AUTO) 0.1 10^3/uL (0.0-0.1); BASOPHILS % (AUTO) 0.4 %; EOSINOPHILS # (AUTO) 0.2 10^3/uL (0.0-0.7); EOSINOPHILS % (AUTO) 1.1 %; LYMPHOCYTES # (AUTO) 2.7 10^3/uL (1.5-3.5); LYMPHOCYTES % (AUTO) 19.2 %; MEAN CORPUSCULAR HGB CONC 33.3 g/dL (32.0-36.0); MEAN CORPUSCULAR VOLUME 87.1 fL (80.0-94.0); MEAN PLATELET VOLUME 9.3 fL (7.4-11.4); MONOCYTES # (AUTO) 0.8 10^3/uL (0.0-1.0); MONOCYTES % (AUTO) 5.9 %; NEUTROPHILS # (AUTO) 10.2 10^3/uL (1.5-6.6); NEUTROPHILS % (AUTO) 71.9 %; PLT - PLATELET COUNT 475 10^3/uL (130-450); RED BLOOD COUNT 3.79 10^6/uL (4.70-6.10); RED CELL DISTRIBUTION WIDTH 13.4 % (12.0-15.0); WHITE BLOOD COUNT 14.1 x10^3/uL (4.8-10.8)
[2023-02-24 05:20] LABS: CALCIUM 7.5 mg/dL (8.5-10.3); CREATININE 0.6 mg/dL (0.6-1.2); MAGNESIUM 1.5 mg/dL (1.7-2.8); PHOSPHORUS 3.9 mg/dL (2.5-4.6); POTASSIUM 2.9 mmol/L (3.5-5.0)
[2023-02-24] MEDS ORDERED: CALCIUM GLUC 1,000MG/50ML-NACL 1,000 MG/50 ML BAG IV ONE (06:05)
[2023-02-24] MEDS: POTASSIUM CHLOR 10 MEQ/100 ML 10 MEQ/100 ML BAG IV SCH ×4 (06:25→10:39)
[2023-02-24] MEDS: SODIUM CHLORIDE 0.9% 1,000 ML IV SCH ×2 (06:38→12:15)
[2023-02-24] MEDS: MAGNESIUM OXIDE 400 MG TABLET PO SCH ×2 (08:27→14:12)
[2023-02-24] MEDS: CHLORHEXIDINE GLUCONATE 15 ML UDC PO SCH (08:27)
[2023-02-24] MEDS: MULTIVITAMIN W/MINERALS TABLET PO SCH (08:27)
[2023-02-24] MEDS: FAMOTIDINE 20 MG/2 ML VIAL IVP SCH ×2 (08:27→20:26)
[2023-02-24] MEDS: ENOXAPARIN 40 MG/0.4 ML SYRINGE SUBQ SCH (08:27)
[2023-02-24] MEDS: polyethylene glycoL 3350 17 GM PACKET PO SCH (08:28)
[2023-02-24] MEDS ORDERED: POTASSIUM CHLORIDE 10 MEQ CAPSULE PO ONE (12:00)
[2023-02-24] MEDS: NICOTINE 14 MG PATCH TOP SCH (12:10)
--- NOTE | 2023-02-24 14:07 | PROVIDER PROGRESS NOTE ---
Subjective - Subjective Pt reports feeling: Improved Objective - Vital Signs/Intake & Output Vital Signs: Vital Signs Pulse Resp BP Pulse Ox 02/24/23 12:00 69 22 135/75 H 100 02/24/23 11:00 60 24 133/80 H 98 Intake & Output: Intake & Output 02/21/23 02/22/23 02/23/23 02/24/23 23:59 23:59 23:59 23:59 Intake Total 4703.427 7634.799 7043.890 3401.333 Output Total 2007 2439 6160 4230 Balance 2695.427 5195.799 883.890 -545.697 - Objective General Appearance: positive: No acute distress, Other (Sleepy, when awakes, he is communicative and pleasant) Eyes Bilateral: positive: Normal inspection ENT: positive: No signs of dehydration, Other (Multiple excoriated lesions on face and toes) Neck: positive: Nml inspection Respiratory: positive: No respiratory distress Cardiovascular: positive: Regular rate & rhythm Abdomen: positive: Non-tender, No distention Skin: positive: Warm, Dry, Other (Multiple excoriated lesions) Extremities: positive: Other (L foot swollen, and weeping, toes bilat have sc abbed) - Lab Results Fish Bones: 02/24/23 05:02 02/24/23 16:39 Other Labs: Lab Results x24hrs 02/24/23 02/24/23 02/24/23 Range/Units 05:02 05:02 05:02 WBC 14.1 H (4.8-10.8) x10^3/uL RBC 3.79 L (4.70-6.10) 10^6/uL Hgb 11.0 L (14.0-18.0) g/dL Hct 33.0 L (42.0-52.0) % MCV 87.1 (80.0-94.0) fL MCH 29.0 (27.0-31.0) pg MCHC 33.3 (32.0-36.0) g/dL RDW 13.4 (12.0-15.0) % Plt Count 475 H (130-450) 10^3/uL MPV 9.3 (7.4-11.4) fL Neut # (Auto) 10.2 H (1.5-6.6) 10^3/uL Lymph # (Auto) 2.7 (1.5-3.5) 10^3/uL [place] # (Auto) 0.8 (0.0-1.0) 10^3/uL Eos # (Auto) 0.2 (0.0-0.7) 10^3/uL Baso # (Auto) 0.1 (0.0-0.1) 10^3/uL Absolute Nucleated RBC 0.00 x10^3/uL Nucleated RBC % 0.0 /100WBC VBG pH 7.477 H (7.31-7.41) Ionized Calcium 1.04 L (1.15-1.33) mmol/L Sodium 138 (135-145) mmol/L Potassium 2.9 L (3.5-5.0) mmol/L Chloride 105 (101-111) mmol/L Carbon Dioxide 26 (21-32) mmol/L Anion Gap 7.0 (6-13) BUN 6 (6-20) mg/dL Creatinine 0.6 (0.6-1.2) mg/dL Estimated GFR (MDRD) 167 (>89) Glucose 107 H (70-100) mg/dL Calcium 7.5 L (8.5-10.3) mg/dL Phosphorus 3.9 (2.5-4.6) mg/dL Magnesium 1.5 L (1.7-2.8) mg/dL 02/23/23 02/23/23 Range/Units 22:03 16:02 WBC (4.8-10.8) x10^3/uL RBC (4.70-6.10) 10^6/uL Hgb (14.0-18.0) g/dL Hct (42.0-52.0) % MCV (80.0-94.0) fL MCH (27.0-31.0) pg MCHC (32.0-36.0) g/dL RDW (12.0-15.0) % Plt Count (130-450) 10^3/uL MPV (7.4-11.4) fL Neut # (Auto) (1.5-6.6) 10^3/uL Lymph # (Auto) (1.5-3.5) 10^3/uL [place] # (Auto) (0.0-1.0) 10^3/uL Eos # (Auto) (0.0-0.7) 10^3/uL Baso # (Auto) (0.0-0.1) 10^3/uL Absolute Nucleated RBC x10^3/uL Nucleated RBC % /100WBC VBG pH 7.500 H 7.450 H (7.31-7.41) Ionized Calcium 1.07 L 1.08 L (1.15-1.33) mmol/L Sodium (135-145) mmol/L Potassium (3.5-5.0) mmol/L Chloride (101-111) mmol/L Carbon Dioxide (21-32) mmol/L Anion Gap (6-13) BUN (6-20) mg/dL Creatinine (0.6-1.2) mg/dL Estimated GFR (MDRD) (>89) Glucose (70-100) mg/dL Calcium (8.5-10.3) mg/dL Phosphorus (2.5-4.6) mg/dL Magnesium (1.7-2.8) mg/dL Sepsis Event Note (H) - Evaluation Current Stage of Sepsis: Sepsis Possible source of Sepsis: positive: Skin/soft tissue - Sepsis Criteria Sepsis Criteria: Recorded Temperature greater than 38.3C or Less than 36C, Recorded Heart Rate greater than 90 bpm, WBC count greater than 12,000 or less than 4000, CREEL HAND: altered consciousness (unrelated to primary neuro pathology) Assessment/Plan - Problem List (1) Cellulitis of left foot Impression: The L foot is still swollen with skin that is now blistering and draining serous fluid but there is no ulcer. The skin of that foot is warm to touch, slightly red. He does have toenails that are dirty, and some seem to be missing. But there is no paronychia or onychomycosis. Imaging showed no joint involvement and no osteomyelitis or fractures. His grandmother shared with us that he was hospitalized for many weeks due to a soft tissue abdominal wall infection in 2019. Will request records from [facility] for that stay>> We got a message back from that he has never been there as an inpatient Plan: Continue Ancef iv Will request a Wound Consult from Dr Almanza, now that pt was extubated over the weekend and could go to Wound clinic on Sat. Will transfer pt out of ICU today. (2) Excoriation (skin-picking) disorder Impression: These could be from his hyperactivity/side effect of his Meth drug abuse, or from developmental delay Plan: The systemic antibiotics are covering for any localized infections associated with these multiple lesions that are seen on his face and extremities (legs mostly) (3) Hypokalemia Conclusion/Plan: Plan: We will give IV K riders and po KCl if he can tolerate that. (4) Drug abuse and dependence Conclusion/Plan: Urine toxicology screen was positive for amphetamines, methamphetamines, cannabinoids. It was negative for opioids, which he told ED provider he uses. After he was extubated yesterday, he also told me that he uses fentanyl alot. Our drug screen does not check for that. His significant agitation and delirium were likely withdrawal from fentanyl therefore. For that he was on iv sedatives and on the vent for 2.5 days, was extubated yesterday 02/23. Plan: Now that he is extubated and can communicate, will ask for a SW consult (but today is Sun and we have no SW on Sundays). (5) N/V Improved. It started after he received narcotics, which were given for pain in his feet Plan: Will slowly advance his diet today. (6) Drug withdrawal delirium Conclusion/Plan: Resolved Presumably this was due to Fentanyl withdrawal. He was on a mechanical ventilator for 2.5 days. He was able to be extubated yesterday morning 02/23. He was initially confused and briefly considered signing out AMA on 02/23, then when he got out of bed and put weight on his feet, had severe bilateral foot pain he realized he needed to remain hospitalized and he has been cooperative ever since then Plan: We will transfer out of ICU to [facility] (7) Hyponatremia Conclusion/Plan: Resolved There was no history of cirrhosis or congestive heart failure, and fluid overloaded was not present, therefore we suspected dehydration and lack of p.o. intake as the cause of his hyponatremia. Sodium has increased to 140 today after being on NS at 100 cc an hour since admission Plan: Will add iv fluids D5 1/2NS with KCL today. Follow BMP daily. (8) Sepsis Impression: Resolved Sepsis criteria that were met included tachycardia, fever, elevated white cell count with the source being his left foot cellulitis. Labs and VS were reviewed. He has had no more fevers, the heart rate has normalized and the WBC has decreased from 36 down to 19 today Plan: Continue empiric antibx, iv Ofermev if needed for fever, ng feeds while he is still sedated and on the vent. (9) On mechanical vent He was successfully extubated on 02/23 (10) Bradycardia This was only seen when he was gagging or being suctioned while intubated
[2023-02-24 16:49] LABS: CALCIUM, IONIZED 1.09 mmol/L (1.15-1.33); VBG PH 7.448 (7.31-7.41)
[2023-02-25] MEDS: LORazepam 2 MG/ML VIAL IVP PRN ×3 (00:06→11:24)
[2023-02-25] MEDS: D5.45NS W/20 MEQ KCL 1,000 ML IV SCH (01:34)
[2023-02-25] MEDS: SODIUM CHLORIDE FLUSH 0.9% 10 ML SYRINGE IVP SCH ×4 (01:36→21:28)
[2023-02-25] MEDS: HYDROmorphone 1 MG/ML CARPUJECT IVP PRN ×3 (03:18→12:25)
[2023-02-25] MEDS: VANCOMYCIN INJ 1 GM, VANCOMYCIN INJ 250 MG in SODIUM CHLORIDE 0.9% 250 ML IV SCH (03:24)
[2023-02-25] MEDS: ceFAZolin 1 GM in SODIUM CHLORIDE 0.9% MINIBAG 100 ML IV SCH ×3 (05:23→21:28)
[2023-02-25] MEDS: SODIUM CHLORIDE 0.9% 1,000 ML IV SCH (05:23)
[2023-02-25 08:11] LABS: BASOPHILS # (AUTO) 0.1 10^3/uL (0.0-0.1); BASOPHILS % (AUTO) 0.5 %; EOSINOPHILS # (AUTO) 0.1 10^3/uL (0.0-0.7); HCT - HEMATOCRIT 38.4 % (42.0-52.0); HGB - HEMOGLOBIN 12.5 g/dL (14.0-18.0); LYMPHOCYTES % (AUTO) 15.9 %; MEAN CORPUSCULAR HEMOGLOBIN 28.9 pg (27.0-31.0); MEAN CORPUSCULAR HGB CONC 32.6 g/dL (32.0-36.0); MEAN CORPUSCULAR VOLUME 88.9 fL (80.0-94.0); MEAN PLATELET VOLUME 9.3 fL (7.4-11.4); MONOCYTES # (AUTO) 0.8 10^3/uL (0.0-1.0); NEUTROPHILS # (AUTO) 9.6 10^3/uL (1.5-6.6); NEUTROPHILS % (AUTO) 74.6 %; PLT - PLATELET COUNT 606 10^3/uL (130-450); RED BLOOD COUNT 4.32 10^6/uL (4.70-6.10); RED CELL DISTRIBUTION WIDTH 13.2 % (12.0-15.0); WHITE BLOOD COUNT 12.9 x10^3/uL (4.8-10.8)
[2023-02-25 08:21] LABS: CALCIUM 8.5 mg/dL (8.5-10.3); CREATININE 0.6 mg/dL (0.6-1.2); POTASSIUM 4.7 mmol/L (3.5-5.0)
[2023-02-25] MEDS: FAMOTIDINE 20 MG/2 ML VIAL IVP SCH (08:38)
[2023-02-25] MEDS: ENOXAPARIN 40 MG/0.4 ML SYRINGE SUBQ SCH (08:38)
[2023-02-25] MEDS: MULTIVITAMIN W/MINERALS TABLET PO SCH (08:38)
[2023-02-25] MEDS: polyethylene glycoL 3350 17 GM PACKET PO SCH (08:39)
[2023-02-25] MEDS: NICOTINE 14 MG PATCH TOP SCH (08:39)
[2023-02-25] MEDS: ACETAMINOPHEN 325 MG TABLET PO PRN (11:24)
[2023-02-25] MEDS ORDERED: LORazepam 2 MG/ML VIAL IVP PRN (14:45)
[2023-02-25] MEDS: fentaNYL 100 MCG/2 ML VIAL IVP PRN (15:37)
--- NOTE | 2023-02-25 19:10 | PROVIDER PROGRESS NOTE ---
Assessment/Plan - Problem List (1) Cellulitis of left foot Assessment/Plan: The L foot is still midly swollen with skin that is now peeling in several places and draining serous fluid but there is no ulcer. The skin of that foot is warm to touch, less red. He does have toenails that are dirty, and some seem to be missing. But there is no paronychia or onychomycosis. Imaging showed no joint involvement and no osteomyelitis or fractures. His grandmother shared with us that he was hospitalized for many weeks due to a soft tissue abdominal wall infection in 2019. Will request records from [facility] for that stay>> We got a message back from that he has never been there as an inpatient. He was transferred out of ICU 02/24. Plan: Continue Ancef iv I ordered a Wound Consult from Dr Almanza, since pt was extubated and can go to Wound clinic today (Sat). However, my staff called the [facility] Wound clinic today and he is not there today and "they have him overbooked for Monday 02/26". I suspect he may now need debridement and would like recommendations about what type of dressings that nurses should be using. (2) Drug abuse and dependence Conclusion/Plan: Urine toxicology screen was positive for amphetamines, methamphetamines, canna binoids. It was negative for opioids, which he told ED provider he uses. After he was extubated, he also told me that he uses fentanyl alot. Our drug screen does not check for that. His significant agitation and delirium were withdrawal from fentanyl therefore. For that he was on iv sedatives and on the ventilator for 2.5 days, was extubated on 02/23. Today he honestly told his MedSurg RN that he wants narcotics in order to get "high" and prefers fentanyl Today he was visited by his casework manager who told us that when he was in [facility] he was on Suboxone, which we had no history of. Plan: Will adjust and stagger his pain meds and sedatives We will ask pharmacy to determine if he is supposed to be on Suboxone now Will ask for a SW input; I was told today by social media designer Aria that if this pat ient should try to abscond or leave AMA, we are to call 911 and the police officers would respond, because since he broke his agreement for an early [place] [facility] discharge, by disappearing from the inpatient detox rehab unit, he will be returned to [facility] after he is medically stabilized. Medical staff is not to reveal that to him, we await the authotitoes to tell him. (3) Excoriation (skin-picking) disorder Impression: These is most likely from his Meth drug abuse, or from his Hx of developmental delay Plan: The systemic antibiotics are covering for any localized infections associated with these multiple lesions that are seen on his face and extremities (legs m ostly) (4) N/V Improved. It started after he received narcotics, which were given for pain in his feet Plan: Will slowly advance his diet (5) Drug withdrawal delirium Conclusion/Plan: Resolved. Presumably this was due to Fentanyl withdrawal. He was on a mechanical ventilator for 2.5 days. He was able to be extubated on 02/23. He was initially confused and briefly considered signing out AMA on 02/23, then when he got out of bed and put weight on his feet, had severe bilateral foot pain, he realized he needed to remain hospitalized and he has been cooperative ever since then. Plan: We will ask pharmacy to determine if he is to be on Suboxone now (6) Sepsis Impression: Resolved Sepsis criteria that were met included tachycardia, fever, elevated white cell count with the source being his left foot cellulitis. Labs and VS were reviewed. He has had no more fevers, the heart rate has normalized and the WBC has decreased from 36 down to 19 today Plan: Continue empiric antibx, Tylenol for fever (7) Hyponatremia Conclusion/Plan: Resolved There was no history of cirrhosis or congestive heart failure, and fluid overloaded was not present, therefore we suspected dehydration and lack of p.o. intake as the cause of his hyponatremia. Sodium has increased to 140 today after being on NS at 100 cc an hour since admission Plan: IV fluids will be stopped, since his oral liquid intake is adequate Follow BMP daily. (8) Hypokalemia Conclusion/Plan: Plan: We will give IV K riders and po KCl if he can tolerate that. - Current Meds Current Meds: Current Medications Generic Name Dose Route Start Last Admin Trade Name Freq PRN Reason Stop Dose Admin Acetaminophen 650 mg 02/25/23 10:25 02/25/23 11:24 Acetaminophen 325 Mg Tablet PO 650 mg Q4HR PRN Administration Mild-Mod Pain or Fever > 38C Enoxaparin Sodium 40 mg 02/21/23 09:00 02/25/23 08:38 Enoxaparin 40 Mg/0.4 Ml Syringe SUBQ 40 mg DAILY JENNIFER Administration Fentanyl 25 mcg 02/25/23 15:05 02/25/23 15:37 Fentanyl 100 Mcg/2 Ml Vial IVP 25 mcg Q2H PRN Administration Severe Pain (Level 7-10) Guaifenesin/Codeine Phosphate 5 ml 02/23/23 17:42 02/24/23 00:09 Guaifenesin/Codeine 5 Ml Udc PO 5 ml Q6HR PRN Administration Cough Hydromorphone HCl 1 mg 02/23/23 14:10 02/25/23 12:25 Hydromorphone 1 Mg/Ml Carpuject IVP 1 mg Q2HR PRN Administration Severe Pain (Level 7-10) Cefazolin Sodium 1 gm/ Sodium 100 mls @ 200 mls/hr 02/20/23 21:00 02/25/23 13:30 Chloride IV Infused Q8H [facility] Infusion Multivitamins/Minerals 1 tab 02/22/23 08:00 02/25/23 08:38 Multivitamin W/Minerals Tablet PO 1 tab DAILYWM JENNIFER Administration Nicotine 1 patch 02/24/23 12:00 02/25/23 08:39 Nicotine 14 Mg Patch TOP 1 patch DAILY JENNIFER Administration Ondansetron HCl 4 mg 02/20/23 14:28 02/23/23 20:37 Ondansetron 4 Mg/2 Ml Vial IVP 4 mg Q6HR PRN Administration Nausea / Vomiting Phenol/Menthol 2 sprays 02/23/23 23:23 02/24/23 03:46 Phenol Throat [place] 177 Ml MM 2 sprays Q2HR PRN Administration Throat Pain Polyethylene Glycol 17 gm 02/22/23 12:00 02/25/23 08:39 Polyethylene Glycol 3350 17 Gm Packet PO Not Given DAILY [facility] Prochlorperazine Edisylate 10 mg 02/23/23 17:45 02/24/23 00:23 Prochlorperazine 10 Mg/2 Ml Vial IVP 10 mg Q6HR PRN Administration Nausea / Vomiting Sodium Chloride 10 ml 02/20/23 17:00 02/25/23 15:37 Sodium Chloride Flush 0.9% 10 Ml Syringe IVP 10 ml 0100,0900,1700 JENNIFER Administration Sodium Chloride 10 ml 02/20/23 14:28 02/24/23 00:24 Sodium Chloride Flush 0.9% 10 Ml Syringe IVP 10 ml PRN PRN Administration NEEDED PER PROVIDER ORDERS Throat Lozenges 1 lozenge 02/23/23 23:23 02/24/23 00:23 Benzocaine/Menthol Lozenge MM 1 lozenge Q2HR PRN Administration Throat pain - Lab Result Fish Bone Diagrams: 02/25/23 08:04 02/25/23 08:04 - Additional Planning My Orders: My Active Orders 02/25/23 Wound Consult MAC [MAC] Routine 02/25/23 08:47 CUL,WOUND (AEROBIC) [RM] Stat 02/25/23 10:25 Acetaminophen [Tylenol] 650 mg PO Q4HR PRN 02/25/23 Lunch DIET [Regular Diet] [DIET] 02/25/23 14:44 oxyCODONE [Roxicodone] 5 mg PO Q4HR PRN 02/25/23 14:45 LORazepam INJ [Ativan Inj (Vial)] 1 mg IVP Q6H PRN 02/25/23 15:05 fentaNYL 25 mcg IVP Q2H PRN 02/26/23 05:00 BMP - BASIC METABOLIC PANEL [CHEM] DAILYLAB CBC - COMP BLD CT W/AUTO DIFF [HEME] DAILYLAB MAGNESIUM [CHEM] DAILYLAB Subjective - Subjective Patient Reports: Pain Nursing Reports: Other (Nurse noticed that he is getting agitated, this was worse after a phone call to his girlfriend and after his great uncle visited. After that was when he requested fentanyl) Objective Vital Signs: Vital Signs - 24 hr 02/24/23 02/25/23 02/25/23 23:54 07:42 15:18 Temperature 37.4 C 36.6 C 36.6 C Heart Rate [ 58 L 83 Brachial] Heart Rate [ 82 Monitoring electrodes] Respiratory 18 18 18 Rate Blood Pressure 143/80 H 154/84 H 133/60 H [Left Brachial artery] O2 Saturation 99 100 99 Oxygen O2 Source Room air I&O (Last 24 Hrs): Intake and Output Totals x24h 02/23/23 02/24/23 02/25/23 23:59 23:59 23:59 Intake Total 7043.890 5633.333 3510.333 Output Total 7260 8458 5650 Balance 883.540 -4836.667 -2139.667 General: Alert, Oriented x3, No acute distress HEENT: Mucous membr. moist/pink, Other (Supple raised excoriations on his face and jaw) Neck: Supple Neuro: Alert, Non Focal Cardiovascular: Regular rate Respiratory: No respiratory distress Abdomen: Soft Extremities: No clubbing, Other (Multiple excoriated lesions areas of arms and legs. Toenails are dirty and ingrown. L foot, dorsum is minimally swollen, has multiple skin tears where blistering have opened, drainage is clear serous.) - Results Results: Laboratory Results WBC 12.9 x10^3/uL (4.8-10.8) H 02/25/23 08:04 RBC 4.32 10^6/uL (4.70-6.10) L 02/25/23 08:04 Hgb 12.5 g/dL (14.0-18.0) L 02/25/23 08:04 Hct 38.4 % (42.0-52.0) L 02/25/23 08:04 MCV 88.9 fL (80.0-94.0) 02/25/23 08:04 MCH 28.9 pg (27.0-31.0) 02/25/23 08:04 MCHC 32.6 g/dL (32.0-36.0) 02/25/23 08:04 RDW 13.2 % (12.0-15.0) 02/25/23 08:04 Plt Count 606 10^3/uL (130-450) H 02/25/23 08:04 MPV 9.3 fL (7.4-11.4) 02/25/23 08:04 Neut # (Auto) 9.6 10^3/uL (1.5-6.6) H 02/25/23 08:04 Lymph # (Auto) 2.0 10^3/uL (1.5-3.5) 02/25/23 08:04 [place] # (Auto) 0.8 10^3/uL (0.0-1.0) 02/25/23 08:04 Eos # (Auto) 0.1 10^3/uL (0.0-0.7) 02/25/23 08:04 Baso # (Auto) 0.1 10^3/uL (0.0-0.1) 02/25/23 08:04 Absolute Nucleated RBC 0.00 x10^3/uL 02/25/23 08:04 Total Counted 100 02/21/23 04:19 Band Neuts % (Manual) 6 % (0-10) 02/21/23 04:19 Abnorm Lymph % (Manual) 0 % 02/21/23 04:19 Nucleated RBC % 0.0 /100WBC 02/25/23 08:04 Neutrophils # (Manual) 22.1 10^3/uL (1.5-6.6) H 02/21/23 04:19 Lymphocytes # (Manual) 1.5 10^3/uL (1.5-3.5) 02/21/23 04:19 Monocytes # (Manual) 1.3 10^3/uL (0.0-1.0) H 02/21/23 04:19 Eosinophils # (Manual) 0.3 10^3/uL (0-0.7) 02/21/23 04:19 Basophils # (Manual) 0.0 10^3/uL (0-0.1) 02/21/23 04:19 Differential Comment MANUAL DIFFERENTIAL 02/21/23 04:19 WBC Morphology NORMAL APPEARANCE (NORMAL) 02/21/23 04:19 Platelet Estimate NORMAL (130-450,000) (NORMAL) 02/21/23 04:19 Platelet Morphology NORMAL APPEARANCE (NORMAL) 02/21/23 04:19 RBC Morph Micro Appear NORMAL APPEARANCE (NORMAL) 02/21/23 04:19 Bld Gas Analysis Time 0602/21/23 06:05 Sample Site RIGHT RADIAL 02/21/23 06:05 ABG pH 7.48 (7.35-7.45) H 02/21/23 06:05 ABG pCO2 30 mmHg (34-45) L 02/21/23 06:05 ABG pO2 154 mmHg (80-100) H* 02/21/23 06:05 ABG HCO3 21.7 mmol/L (22.0-26.0) L 02/21/23 06:05 ABG Total CO2 22.7 MMOL/L (21.0-29.0) 02/21/23 06:05 ABG O2 Saturation 99 % (94-98) H 02/21/23 06:05 ABG Base Excess -0.9 mmol/L (-2.0-3.0) 02/21/23 06:05 [place] Test POSITIVE 02/21/23 06:05 VBG pH 7.448 (7.31-7.41) H 02/24/23 16:39 Ionized Calcium 1.09 mmol/L (1.15-1.33) L 02/24/23 16:39 Respiration Rate 16 b/min 02/21/23 06:05 O2 Delivery Device VENTILATOR 02/21/23 06:05 Vent Mode ASSIST/CONTROL 02/21/23 06:05 FiO2 40.00 02/20/23 17:01 Tidal Volume 500 mL 02/21/23 06:05 PEEP 5 cmH2O 02/21/23 06:05 Sodium 138 mmol/L (135-145) 02/25/23 08:04 Potassium 4.7 mmol/L (3.5-5.0) 02/25/23 08:04 Chloride 104 mmol/L (101-111) 02/25/23 08:04 Carbon Dioxide 26 mmol/L (21-32) 02/25/23 08:04 Anion Gap 8.0 (6-13) 02/25/23 08:04 BUN 6 mg/dL (6-20) 02/25/23 08:04 Creatinine 0.6 mg/dL (0.6-1.2) 02/25/23 08:04 Estimated GFR (MDRD) 167 (>89) 02/25/23 08:04 Glucose 106 mg/dL (70-100) H 02/25/23 08:04 Lactic Acid 1.1 mmol/L (0.5-2.2) 02/20/23 12:03 Calcium 8.5 mg/dL (8.5-10.3) 02/25/23 08:04 Phosphorus 3.9 mg/dL (2.5-4.6) 02/24/23 05:02 Magnesium 1.9 mg/dL (1.7-2.8) 02/25/23 08:04 Total Bilirubin 0.6 mg/dL (0.2-1.0) 02/22/23 05:10 AST 54 IU/L (10-42) H 02/22/23 05:10 ALT 39 IU/L (10-60) 02/22/23 05:10 Alkaline Phosphatase 75 IU/L (42-121) 02/22/23 05:10 C-Reactive Protein 29.1 mg/dL (0-1.0) H 02/20/23 12:03 Total Protein 5.6 g/dL (6.7-8.2) L 02/22/23 05:10 Albumin 2.2 g/dL (3.2-5.5) L 02/22/23 05:10 Globulin 3.4 g/dL (2.1-4.2) 02/22/23 05:10 Albumin/Globulin Ratio 0.6 (1.0-2.2) L 02/22/23 05:10 Prealbumin 3 mg/dL (18-45) L 02/22/23 05:10 Triglycerides 96 mg/dL (-149) 02/22/23 05:10 Lipase 28 U/L (22-51) 02/20/23 12:03 Procalcitonin 52.48 ng/mL (<0.5) H* 02/20/23 12:03 Urine Color DARK YELLOW 02/20/23 14:38 Urine Clarity CLEAR (CLEAR) 02/20/23 14:38 Urine pH 6.0 PH (5.0-7.5) 02/20/23 14:38 Ur Specific Downs 1.010 (1.002-1.030) 02/20/23 14:38 Urine Protein TRACE mg/dL (NEGATIVE) 02/20/23 14:38 Urine Glucose (UA) NEGATIVE mg/dL (NEGATIVE) 02/20/23 14:38 Urine Ketones NEGATIVE mg/dL (NEGATIVE) 02/20/23 14:38 Urine Occult Blood TRACE-INTA (NEGATIVE) 02/20/23 14:38 Urine Nitrite NEGATIVE (NEGATIVE) 02/20/23 14:38 Urine Bilirubin NEGATIVE (NEGATIVE) 02/20/23 14:38 Urine Urobilinogen 1 (NORMAL) E.U./dL (NORMAL) 02/20/23 14:38 Ur Leukocyte Esterase NEGATIVE (NEGATIVE) 02/20/23 14:38 Ur Microscopic Review NOT INDICATED 02/20/23 14:38 Urine Culture Comments NOT INDICATED 02/20/23 14:38 Nasal Screen MRSA (PCR) NEGATIVE (NEGATIVE) 02/20/23 16:20 Last Dose Date 02-21-2023 02/21/23 16:13 Last Dose Time 153402/21/23 16:13 Vancomycin Peak 33.2 ug/mL (20.0-40.0) 02/21/23 16:13 Vancomycin Trough 11.0 ug/mL (10.0-20.0) 02/21/23 13:15 Urine Opiates Screen NEGATIVE (NEGATIVE) 02/20/23 14:38 Ur Oxycodone Screen NEGATIVE (NEGATIVE) 02/20/23 14:38 Urine Methadone Screen NEGATIVE (NEGATIVE) 02/20/23 14:38 Ur Propoxyphene Screen NEGATIVE (NEGATIVE) 02/20/23 14:38 Ur Barbiturates Screen NEGATIVE (NEGATIVE) 02/20/23 14:38 Ur Tricyclics Screen NEGATIVE (NEGATIVE) 02/20/23 14:38 Ur Phencyclidine Scrn NEGATIVE (NEGATIVE) 02/20/23 14:38 Ur Amphetamine Screen POSITIVE (NEGATIVE) H 02/20/23 14:38 U Methamphetamines Scrn POSITIVE (NEGATIVE) H 02/20/23 14:38 U Benzodiazepines Scrn NEGATIVE (NEGATIVE) 02/20/23 14:38 Urine Cocaine Screen NEGATIVE (NEGATIVE) 02/20/23 14:38 U Cannabinoids Screen POSITIVE (NEGATIVE) H 02/20/23 14:38 Sepsis Event Note (H) - Evaluation Current Stage of Sepsis: Sepsis Possible source of Sepsis: positive: Skin/soft tissue - Sepsis Criteria Sepsis Criteria: Recorded Temperature greater than 38.3C or Less than 36C, Recorded Heart Rate greater than 90 bpm, WBC count greater than 12,000 or less than 4000, WOMEN'S SWIM COACH: altered consciousness (unrelated to primary neuro pathology)
[2023-02-25] MEDS ORDERED: HYDROmorphone 1 MG/ML CARPUJECT IVP PRN (19:17)
[2023-02-26] MEDS: ceFAZolin 1 GM in SODIUM CHLORIDE 0.9% MINIBAG 100 ML IV SCH ×3 (05:15→20:36)
[2023-02-26 05:32] LABS: BASOPHILS % (AUTO) 0.8 %; EOSINOPHILS % (AUTO) 2.2 %; HCT - HEMATOCRIT 37.6 % (42.0-52.0); HGB - HEMOGLOBIN 12.3 g/dL (14.0-18.0); LYMPHOCYTES % (AUTO) 29.8 %; MEAN CORPUSCULAR HEMOGLOBIN 29.3 pg (27.0-31.0); MEAN CORPUSCULAR HGB CONC 32.7 g/dL (32.0-36.0); MEAN CORPUSCULAR VOLUME 89.5 fL (80.0-94.0); MEAN PLATELET VOLUME 9.6 fL (7.4-11.4); NEUTROPHILS % (AUTO) 54.2 %; PLT - PLATELET COUNT 637 10^3/uL (130-450); RED CELL DISTRIBUTION WIDTH 13.4 % (12.0-15.0); WHITE BLOOD COUNT 11.9 x10^3/uL (4.8-10.8)
[2023-02-26 05:36] LABS: ABNORMAL LYMPHS % (MANUAL) 0 %
[2023-02-26 05:41] LABS: CALCIUM 8.5 mg/dL (8.5-10.3); CREATININE 0.7 mg/dL (0.6-1.2); POTASSIUM 4.6 mmol/L (3.5-5.0)
[2023-02-26 05:46] LABS: BAND NEUTROPHILS % (MANUAL) 1 %; BASOPHILS # (MANUAL) 0.1 10^3/uL (0-0.1); BASOPHILS % (MANUAL) 1 %; DIFFERENTIAL COMMENT MANUAL DIFFERENTIAL; EOSINOPHILS # (MANUAL) 0.2 10^3/uL (0-0.7); LYMPHOCYTES # (MANUAL) 3.6 10^3/uL (1.5-3.5); LYMPHOCYTES % (MANUAL) 30 %; MONOCYTES # (MANUAL) 0.6 10^3/uL (0.0-1.0); MYELOCYTES % (MANUAL) 3 %; PLATELET ESTIMATE, MANUAL INCREASED (>450,000) (NORMAL); PLATELET MORPHOLOGY NORMAL APPEARANCE (NORMAL); RBC MORPHOLOGY (MULTIPLE) NORMAL APPEARANCE (NORMAL); WBC MORPHOLOGY (MULTIPLE) NORMAL APPEARANCE (NORMAL)
[2023-02-26] MEDS: fentaNYL 100 MCG/2 ML VIAL IVP PRN ×5 (06:09→20:34)
[2023-02-26] MEDS: MULTIVITAMIN W/MINERALS TABLET PO SCH (08:09)
[2023-02-26] MEDS: polyethylene glycoL 3350 17 GM PACKET PO SCH (08:09)
[2023-02-26] MEDS: ENOXAPARIN 40 MG/0.4 ML SYRINGE SUBQ SCH (08:09)
[2023-02-26] MEDS: SODIUM CHLORIDE FLUSH 0.9% 10 ML SYRINGE IVP SCH ×2 (08:10→16:42)
[2023-02-26] MEDS: NICOTINE 14 MG PATCH TOP SCH ×2 (08:10→08:30)
[2023-02-26] MEDS: oxyCODONE 5 MG TABLET PO PRN ×3 (08:15→19:28)
[2023-02-26] MEDS: BUPRENORPHINE/NALOXONE 8-2 MG TAB SL SCH ×2 (08:15→20:33)
[2023-02-26] MEDS: ACETAMINOPHEN 325 MG TABLET PO PRN (08:58)
[2023-02-26] MEDS: LORazepam 2 MG/ML VIAL IVP PRN ×3 (08:58→21:13)
--- NOTE | 2023-02-26 13:14 | PROVIDER PROGRESS NOTE ---
Subjective - Prog Note Date Prog Note Date: 02/26/23 Prog Note Time: 13:12 - Subjective Subjective: He has reported to nursing that he is very satisfied with the fentanyl. He also shared with nursing that he was content with having to nag enough to get fe ntanyl and was able to receive it yesterday. He says that all he wanted to do was get high and now is able to get high again with his fentanyl. He does not like the Suboxone I resumed today. He is still in the hospital because of his left foot. Daughter had a check attempted to get a wound clinic visit with him but the attending physician is just returning from vacation and is super booked. We checked with the clinic today and he continues to be with a brisk workload for the rest of the week. Current Medications - Current Medications Current Medications: Active Medications Acetaminophen (Acetaminophen 325 Mg Tablet) 650 mg PO Q4HR PRN PRN Reason: Mild-Mod Pain or Fever > 38C Last Admin: 02/26/23 08:58 Dose: 650 mg Buprenorphine HCl (Buprenorphine/Naloxone 8-2 Mg Tab) 1 tab SL BID [facility] Last Admin: 02/26/23 08:15 Dose: 1 tab Enoxaparin Sodium (Enoxaparin 40 Mg/0.4 Ml Syringe) 40 mg SUBQ DAILY [facility] Last Admin: 02/26/23 08:09 Dose: 40 mg Fentanyl (Fentanyl 100 Mcg/2 Ml Vial) 25 mcg IVP Q2H PRN PRN Reason: Severe Pain (Level 7-10) Last Admin: 02/26/23 12:29 Dose: 25 mcg Guaifenesin/Codeine Phosphate (Guaifenesin/Codeine 5 Ml Udc) 5 ml PO Q6HR PRN PRN Reason: Cough Last Admin: 02/24/23 00:09 Dose: 5 ml Cefazolin Sodium 1 gm/ Sodium (Chloride) 100 mls @ 200 mls/hr IV Q8H [facility] Last Infusion: 02/26/23 06:10 Dose: Infused Lorazepam (Lorazepam 2 Mg/Ml Vial) 1 mg IVP Q6H PRN PRN Reason: Agitation Last Admin: 02/26/23 08:58 Dose: 1 mg Multivitamins/Minerals (Multivitamin W/Minerals Tablet) 1 tab PO DAILYWM [facility] Last Admin: 02/26/23 08:09 Dose: 1 tab Nicotine (Nicotine 14 Mg Patch) 1 patch TOP DAILY [facility] Last Admin: 02/26/23 08:10 Dose: 1 patch Ondansetron HCl (Ondansetron 4 Mg/2 Ml Vial) 4 mg IVP Q6HR PRN PRN Reason: Nausea / Vomiting Last Admin: 02/23/23 20:37 Dose: 4 mg Oxycodone HCl (Oxycodone 5 Mg Tablet) 5 mg PO Q4HR PRN PRN Reason: Moderate Pain (Level 4-6) Last Admin: 02/26/23 08:15 Dose: 5 mg Phenol/Menthol (Phenol Throat [place] 177 Ml) 2 sprays MM Q2HR PRN PRN Reason: Throat Pain Last Admin: 02/24/23 03:46 Dose: 2 sprays Polyethylene Glycol (Polyethylene Glycol 3350 17 Gm Packet) 17 gm PO DAILY [facility] Last Admin: 02/26/23 08:09 Dose: 17 gm Prochlorperazine Edisylate (Prochlorperazine 10 Mg/2 Ml Vial) 10 mg IVP Q6HR PRN PRN Reason: Nausea / Vomiting Last Admin: 02/24/23 00:23 Dose: 10 mg Sodium Chloride (Sodium Chloride Flush 0.9% 10 Ml Syringe) 10 ml IVP 0100,0900,1700 [facility] Last Admin: 02/26/23 08:10 Dose: 10 ml Sodium Chloride (Sodium Chloride Flush 0.9% 10 Ml Syringe) 10 ml IVP PRN PRN PRN Reason: NEEDED PER PROVIDER ORDERS Last Admin: 02/24/23 00:24 Dose: 10 ml Throat Lozenges (Benzocaine/Menthol Lozenge) 1 lozenge MM Q2HR PRN PRN Reason: Throat pain Last Admin: 02/24/23 00:23 Dose: 1 lozenge No Known Home Medications 02/20/23 Objective - Vital Signs/Intake & Output Reviewed Vital Signs: Yes Vital Signs: Vital Signs x48h Temp Pulse Resp BP Pulse Ox 02/26/23 08:30 36.6 C 69 16 142/75 H 100 Intake & Output: Intake & Output 02/23/23 02/24/23 02/25/23 02/26/23 23:59 23:59 23:59 23:59 Intake Total 7043.890 5633.333 4610.333 580 Output Total 1060 8480 5650 1200 Balance 883.890 -2846.667 -1039.667 -620 - Objective General Appearance: positive: Alert, Other (Pale, fatigued appearing young white male, oriented, speech normal, no lethargy) Eyes Bilateral: positive: PERRL, EOMI ENT: positive: Pharynx nml Neck: positive: No JVD. negative: Stiff neck Respiratory: positive: No respiratory distress. negative: Wheezes, Rales, Rhonchi Cardiovascular: positive: Regular rate & rhythm, No murmur Abdomen: positive: Non-tender, No organomegaly, Nml bowel sounds, No distention Skin: positive: Warm, Dry, Other (I admitted him with multiple excoriations on his face, and those are dried and healing. Also ones on his arms. L foot skin has peeled, cracked, with superficial loss of skin on 3 superficial ulcers on top of the foot. overall size of the foot 1/2 size it was when I admitted. Dry, no red or heat) Extremities: positive: Full ROM, Pedal edema (L foot) Neurologic/Psychiatric: positive: Oriented x3, CN's nml (2-12), Motor nml - Lab Results Fish Bones: 02/26/23 04:39 02/26/23 04:39 Other Labs: Lab Results x24hrs 02/26/23 02/26/23 Range/Units 04:39 04:39 WBC 11.9 H (4.8-10.8) x10^3/uL RBC 4.20 L (4.70-6.10) 10^6/uL Hgb 12.3 L (14.0-18.0) g/dL Hct 37.6 L (42.0-52.0) % MCV 89.5 (80.0-94.0) fL MCH 29.3 (27.0-31.0) pg MCHC 32.7 (32.0-36.0) g/dL RDW 13.4 (12.0-15.0) % Plt Count 637 H (130-450) 10^3/uL MPV 9.6 (7.4-11.4) fL Neut # (Auto) Not Reportable Lymph # (Auto) Not Reportable [place] # (Auto) Not Reportable Eos # (Auto) Not Reportable Baso # (Auto) Not Reportable Absolute Nucleated RBC Not Reportable Total Counted 100 Band Neuts % (Manual) 1 (0 - 10) % Abnorm Lymph % (Manual) 0 % Myelocytes % 3 H ( - 0) % Nucleated RBC % Not Reportable Neutrophils # (Manual) 7.0 H (1.5-6.6) 10^3/uL Lymphocytes # (Manual) 3.6 H (1.5-3.5) 10^3/uL Monocytes # (Manual) 0.6 (0.0-1.0) 10^3/uL Eosinophils # (Manual) 0.2 (0-0.7) 10^3/uL Basophils # (Manual) 0.1 (0-0.1) 10^3/uL Differential Comment MANUAL DIFFERENTIAL WBC Morphology NORMAL APPEARANCE (NORMAL) Platelet Estimate INCREASED (>450,000) (NORMAL) Platelet Morphology NORMAL APPEARANCE (NORMAL) RBC Morph Micro Appear NORMAL APPEARANCE (NORMAL) Sodium 140 (135-145) mmol/L Potassium 4.6 (3.5-5.0) mmol/L Chloride 103 (101-111) mmol/L Carbon Dioxide 29 (21-32) mmol/L Anion Gap 8.0 (6-13) BUN 14 (6-20) mg/dL Creatinine 0.7 (0.6-1.2) mg/dL Estimated GFR (MDRD) 140 (>89) Glucose 102 H (70-100) mg/dL Calcium 8.5 (8.5-10.3) mg/dL Magnesium 2.0 (1.7-2.8) mg/dL ABX Reporting Has patient been on IV antibiotics over the past 48 hours?: Yes Sepsis Event Note (H) - Evaluation Current Stage of Sepsis: Sepsis Possible source of Sepsis: positive: Skin/soft tissue - Sepsis Criteria Sepsis Criteria: Recorded Temperature greater than 38.3C or Less than 36C, Recorded Heart Rate greater than 90 bpm, WBC count greater than 12,000 or less than 4000, CARE TAKER: altered consciousness (unrelated to primary neuro pathology) Assessment/Plan - Problem List (1) Cellulitis of left foot Impression: This has improved from what I saw on admission 02/20. The L foot is still midly swollen with skin that is peeling in several places and draining serous fluid but there was no ulcer. Today I am seeing 3 areas of discrete loss of supervicial skin on the dorsum of foot. Bloody, but no deeper than superficial skin loss. The skin of that foot is slightly warm to touch, and more brown than red. He does have toenails that are dirty, and some seem to be missing. But there is no paronychia or onychomycosis. Imaging showed no joint involvement and no osteomyelitis or fractures. His grandmother shared with us that he was hospitalized for many weeks due to a soft tissue abdominal wall infection in 2019. Will request records from [facility] for that stay>> We got a message back from that he has never been there as an inpatient. He was transferred out of ICU 02/24. Previous hospitalist ordered a Wound Consult from Dr Almanza, since pt was extubated and could go to Wound clinic Saturday.. However, RN called the [facility] and Dr. Cai was there 02/25 and "they have him overbooked for Monday 02/26". The clinic is telling me that Dr. Cai is booked for the week. Plan: I have asked Dr. Paiz from [facility] to provide some guidelines. If he only needs a dressing change every day, then he can be discharged. Continue Ancef 1 g every 8 hours. Day #7. I will stop when WBC are normal. He is 11.9 today (started at 36.2) (2) Drug abuse and dependence Conclusion/Plan: Urine toxicology screen was positive for amphetamines, methamphetamines, cannabinoids. It was negative for opioids, which he told ED provider he uses. After he was extubated, he also told me that he uses fentanyl alot. Our drug screen does not check for that. His significant agitation and delirium were withdrawal from fentanyl therefore. For that he was on iv sedatives and on the ventilator for 2.5 days, was extubated on 02/23. 02/25 he honestly told his [facility] RN that he wants narcotics in order to get "high" and prefers fentanyl He was visited by his rifle case repairer on 02/25 who told us that when he was in residential he was on Suboxone, which we had no history of. His grandmother did confirm that he was on Suboxone as part of his treatment plan in [place]. 02/25 Hospitalist was told by perinatal social worker Aria that if this patient should try to abscond or leave AMA, we are to call 911 and the police officers would respond, because since he broke his agreement for an early residential discharge, by disappearing from the inpatient detox rehab unit, he will be returned to residential after he is medically stabilized. Medical staff is not to reveal that to him, we await the authorities to tell him. Hospitalist did start fentanyl yesterday. This made the patient very happy. Plan: Start Suboxone 8-2 mg 1 sublingual twice daily Stop Dilaudid Discouraged the use of fentanyl by nursing. I do not want to completely contradict the use of the fentanyl order which will probably create an happiness and hostility on the part of the patient. (3) Excoriation (skin-picking) disorder Impression: These is most likely from his Meth drug abuse, or from his Hx of developmental delay Plan: The systemic antibiotics are covering for any localized infections associated with these multiple lesions that are seen on his face and extremities (legs mostly) (4) N/V No vomiting. He is eating 50 to 75% of his Regular diet.. For the most part it 75% of his meals. It started after he received narcotics, which were given for pain in his feet Plan: No change in diet. Continue as needed antiemetics in the form of Zofran 4 mg IV push every 4 hours as needed (5) Drug withdrawal delirium resolved Conclusion/Plan: Presumably this was due to Fentanyl withdrawal. He was on a mechanical ventilator for 2.5 days. He was able to be extubated on 02/23. He was initially confused and briefly considered signing out AMA on 02/23, then when he got out of bed and put weight on his feet, had severe bilateral foot pain, he realized he needed to remain hospitalized and he has been cooperative ever since then. Plan: Pharmacy has not been able to confirm the Suboxone, but on the basis of what his grandmother tells me, I have started Suboxone sublingual twice daily (6) Sepsis resolved Impression: Sepsis criteria that were met included tachycardia, fever, elevated white cell count with the source being his left foot cellulitis. Labs and VS were reviewed. He has had no more fevers, the heart rate has normalized and the WBC has decreased from 36 down to 11.9 today Plan: Continue empiric antibx, Tylenol for fever (7) Hyponatremia resolved Conclusion/Plan: Resolved There was no history of cirrhosis or congestive heart failure, and fluid overloaded was not present, therefore we suspected dehydration and lack of p.o. intake as the cause of his hyponatremia. Sodium has increased to 140 today after being on NS at 100 cc an hour since admission Plan: IV fluids will be stopped, since his oral liquid intake is adequate Follow BMP daily. (8) Hypokalemia resolved since 02/25 Conclusion/Plan: Plan: I will continue to monitor levels on a daily basis and supplement with po potassium.
--- NOTE | 2023-02-26 16:40 | CONSULTATION NOTE ---
Referring Provider Name of Referring Provider:: Rafael Armenta) Consult Date: 02/26/23 Chief Complaint - Chief Complaint Chief Complaint: left foot cellulitis History of Present Illness - Admitted From Admitted From:: ED - History Obtained From Records Reviewed: yes History obtained from: patient, chart, primary team - History of Present Illness HPI Comment/Other: This is a 22 y/o M with a history of polysubstance use who was admitted with sepsis 2/2 cellulitis in his left foot and withdrawal symptoms. He required intubation 2/2 agitation and was in the ICU for several days. He continues to be on antibiotics and has improved significantly. As his edema in his foot has improved, he has had some skin sloughing and developed some open areas on his foot. Our wound team is unable to see the patient today, so I am consulted to evaluate this patient's foot. The patient states his foot is better than when he came in with respect to pain and swelling but that he continues to have significant pain in his foot. He states several times that he does not feel ready for discharge. History - Past Medical History Cardiovascular: reports: None Respiratory: reports: Asthma (with allergies) Neuro: reports: None Endocrine/Autoimmune: reports: None GI: reports: None : reports: None HEENT: reports: None Psych: reports: Depression, Post traumatic stress disorder Musculoskeletal: reports: Other (lice) Derm: reports: Psoriasis, Other (Severe soft tissue wound infection resulting in weeks of hospitalization at [facility] in 2019) MRSA Hx?: No - Family & Social History Family History Comment/Other: Mother is bipolar and has substance abuse. Dad has alcoholism. No siblings. No children Living arrangement: Homeless (He left his grandmother's house about 3 years ago and has been living on the [address] or with friends) Living Situation: Other Social History Notes: Arrived to the ED with girlfriend. He is main form of recreational substance abuse is heroin. Methamphetamines. No history of tobacco abuse or alcoholism. - Substance History Use: Uses substance without health or social issues: Amphetamine, Opioid, Other (vapes marijuana oil) Abuse: Recurrent use of substance despite neg consequences: Amphetamine, Opioid Abuse Issues: Intoxication, Delirium, Delusions, Mood Disorder, Opioid Induced Psychotic - POLST Patient has POLST: No POLST Status: Full Code Meds/Allgy - Home Medications Home Medications: Ambulatory Orders Medication Instructions Recorded Confirmed No Known Home Medications 02/20/23 02/20/23 - Allergies Allergies/Adverse Reactions: Allergies Allergy/AdvReac Type Severity Reaction Status Date / Time polymyxin B AdvReac Hives Verified 03/08/21 09:10 Review of Systems - Constitutional Constitutional: reports: Other (negative except for HPI and PMH) Exam - Vital Signs Reviewed Vital Signs: Yes Vital Signs: Vital Signs x48h Temp Pulse Resp BP Pulse Ox 02/26/23 15:47 36.6 C 88 20 131/69 H 98 - Physical Exam General Appearance: positive: No acute distress, Other (resting comfortably, easily awakens) Eyes Bilateral: positive: Normal inspection, PERRL, EOMI ENT: positive: No signs of dehydration Neck: positive: Trachea midline Respiratory: positive: No respiratory distress Cardiovascular: positive: Regular rate & rhythm Peripheral Pulses: positive: 1+ Abdomen: positive: Non-tender, No distention. negative: Guarding, Rebound Extremities: positive: No pedal edema (on R LE), Other (left foot with extensive superficial epidermal sloughing likely 2/2 improving edema. Moderate, non pitting edema present. Erythema and warmth across the dorsum of the foot. Several small areas of eschar with serous drainage. Foot is quite tender to palpation. No fluctuance. Motor/sensation intact.) Neurologic/Psychiatric: positive: Oriented x3 Conclusion and Plan - Lab Results Microbiology Results 02/20/23 12:03 Blood - Left Arm Blood Culture - Final NO GROWTH AFTER 5 DAYS 02/20/23 12:06 Blood - Right Arm Blood Culture - Final NO GROWTH AFTER 5 DAYS Laboratory Results 02/26/23 04:39: Sodium 140, Potassium 4.6, Chloride 103, Carbon Dioxide 29, Anion Gap 8.0, BUN 14, Creatinine 0.7, Estimated GFR (MDRD) 140, Glucose 102 H, Calcium 8.5, Magnesium 2.0 02/26/23 04:39: WBC 11.9 H, RBC 4.20 L, Hgb 12.3 L, Hct 37.6 L, MCV 89.5, MCH 29.3, MCHC 32.7, RDW 13.4, Plt Count 637 H, MPV 9.6, Neut # (Auto) Not Reportable, Lymph # (Auto) Not Reportable, [place] # (Auto) Not Reportable, Eos # (Auto) Not Reportable, Baso # (Auto) Not Reportable, Absolute Nucleated RBC Not Reportable, Total Counted 100, Band Neuts % (Manual) 1, Abnorm Lymph % (Manual) 0, Myelocytes % 3 H, Nucleated RBC % Not Reportable, Neutrophils # (Manual) 7.0 H, Lymphocytes # (Manual) 3.6 H, Monocytes # (Manual) 0.6, Eosinophils # (Manual) 0.2, Basophils # (Manual) 0.1, Differential Comment MANUAL DIFFERENTIAL, WBC Morphology NORMAL APPEARANCE, Platelet Estimate INCREASED (>450,000), Platelet Morphology NORMAL APPEARANCE, RBC Morph Micro Appear NORMAL APPEARANCE 02/25/23 08:04: Magnesium 1.9 02/25/23 08:04: Sodium 138, Potassium 4.7, Chloride 104, Carbon Dioxide 26, Anion Gap 8.0, BUN 6, Creatinine 0.6, Estimated GFR (MDRD) 167, Glucose 106 H, Calcium 8.5 02/25/23 08:04: WBC 12.9 H, RBC 4.32 L, Hgb 12.5 L, Hct 38.4 L, MCV 88.9, MCH 28.9, MCHC 32.6, RDW 13.2, Plt Count 606 H, MPV 9.3, Neut # (Auto) 9.6 H, Lymph # (Auto) 2.0, [place] # (Auto) 0.8, Eos # (Auto) 0.1, Baso # (Auto) 0.1, Absolute Nucleated RBC 0.00, Nucleated RBC % 0.0 02/24/23 16:39: VBG pH 7.448 H, Ionized Calcium 1.09 L 02/24/23 16:39: Potassium 3.6 02/24/23 16:00: Magnesium 1.6 L - Diagnostic Imaging Results Diagnostic Imaging Results: positive: Final report reviewed Diagnostic Imaging Results Comments: Images and report from CT on LE ordered on the date of admission are reviewed. No signs of osteomyelitis, joint involvement, abscess at that time. - Consultation Note Consultation Note: This is a 22 y/o M with: 1. left foot cellulitis - improving - There are several areas of eschar on the dorsum of the foot. No fluctuance. No need for emergent debridement at this time. Patient is quite tender on exam and will not likely tolerate bedside debridement if needed in the future. - Recommend continued wound care with Mepilex (though medihoney or silver dressing may be benificial, no such dressing is available on the floor), compression with PENNY wrap, and elevation (above heart level whenever possible). I also recommend consultation with the wound care team to see if there is a dressing that he can use that will aid with microdebridement and may be able to be changed less frequently. - Recommend continued IV abx until wbc wnl, then ok to transition to oral abx. 2. polysubstance abuse - as per primary team Thank you for consulting me in the care of this patient! I will follow peripherally. Please call with any questions or concerns.
[2023-02-27] MEDS: fentaNYL 100 MCG/2 ML VIAL IVP PRN ×9 (00:44→22:01)
[2023-02-27] MEDS: SODIUM CHLORIDE FLUSH 0.9% 10 ML SYRINGE IVP SCH ×3 (00:45→15:46)
[2023-02-27] MEDS: ceFAZolin 1 GM in SODIUM CHLORIDE 0.9% MINIBAG 100 ML IV SCH ×3 (05:10→20:34)
[2023-02-27] MEDS: SODIUM CHLORIDE FLUSH 0.9% 10 ML SYRINGE IVP PRN (05:12)
[2023-02-27 08:03] LABS: BASOPHILS # (AUTO) 0.1 10^3/uL (0.0-0.1); BASOPHILS % (AUTO) 0.9 %; EOSINOPHILS # (AUTO) 0.2 10^3/uL (0.0-0.7); EOSINOPHILS % (AUTO) 1.8 %; HCT - HEMATOCRIT 42.5 % (42.0-52.0); HGB - HEMOGLOBIN 13.7 g/dL (14.0-18.0); LYMPHOCYTES # (AUTO) 2.1 10^3/uL (1.5-3.5); LYMPHOCYTES % (AUTO) 20.7 %; MEAN CORPUSCULAR HEMOGLOBIN 28.6 pg (27.0-31.0); MEAN CORPUSCULAR HGB CONC 32.2 g/dL (32.0-36.0); MEAN CORPUSCULAR VOLUME 88.7 fL (80.0-94.0); MEAN PLATELET VOLUME 9.1 fL (7.4-11.4); MONOCYTES # (AUTO) 0.7 10^3/uL (0.0-1.0); MONOCYTES % (AUTO) 6.6 %; NEUTROPHILS # (AUTO) 6.8 10^3/uL (1.5-6.6); NEUTROPHILS % (AUTO) 65.3 %; PLT - PLATELET COUNT 719 10^3/uL (130-450); RED BLOOD COUNT 4.79 10^6/uL (4.70-6.10); RED CELL DISTRIBUTION WIDTH 13.2 % (12.0-15.0); WHITE BLOOD COUNT 10.4 x10^3/uL (4.8-10.8)
[2023-02-27] MEDS: MULTIVITAMIN W/MINERALS TABLET PO SCH (08:31)
[2023-02-27] MEDS: ENOXAPARIN 40 MG/0.4 ML SYRINGE SUBQ SCH (08:31)
[2023-02-27] MEDS: NICOTINE 14 MG PATCH TOP SCH ×2 (08:34→11:49)
[2023-02-27] MEDS: polyethylene glycoL 3350 17 GM PACKET PO SCH (08:34)
[2023-02-27] MEDS: BUPRENORPHINE/NALOXONE 8-2 MG TAB SL SCH ×2 (09:59→20:00)
--- NOTE | 2023-02-27 15:28 | PROVIDER PROGRESS NOTE ---
Subjective - Prog Note Date Prog Note Date: 02/27/23 Prog Note Time: 15:12 - Subjective Subjective: Description of pain in his foot. Says that the fentanyl helps and he does not want me to stop it. Not worse, not better. He does not like the Suboxone. R efuses to take it. He had been expressing suicidal ideation to his showcase trimmer with each of her vi sits this week. His showcase trimmer is from the Department of human services with [facility]. Current Medications - Current Medications Current Medications: Active Medications Acetaminophen (Acetaminophen 325 Mg Tablet) 650 mg PO Q4HR PRN PRN Reason: Mild-Mod Pain or Fever > 38C Last Admin: 02/26/23 08:58 Dose: 650 mg Buprenorphine HCl (Buprenorphine/Naloxone 8-2 Mg Tab) 1 tab SL BID [facility] Last Admin: 02/27/23 09:59 Dose: Not Given Enoxaparin Sodium (Enoxaparin 40 Mg/0.4 Ml Syringe) 40 mg SUBQ DAILY [facility] Last Admin: 02/27/23 08:31 Dose: 40 mg Fentanyl (Fentanyl 100 Mcg/2 Ml Vial) 25 mcg IVP Q2H PRN PRN Reason: Severe Pain (Level 7-10) Last Admin: 02/27/23 13:51 Dose: 25 mcg Guaifenesin/Codeine Phosphate (Guaifenesin/Codeine 5 Ml Udc) 5 ml PO Q6HR PRN PRN Reason: Cough Last Admin: 02/24/23 00:09 Dose: 5 ml Cefazolin Sodium 1 gm/ Sodium (Chloride) 100 mls @ 200 mls/hr IV Q8H [facility] Last Infusion: 02/27/23 13:46 Dose: Infused Lorazepam (Lorazepam 2 Mg/Ml Vial) 1 mg IVP Q6H PRN PRN Reason: Agitation Last Admin: 02/26/23 21:13 Dose: 1 mg Multivitamins/Minerals (Multivitamin W/Minerals Tablet) 1 tab PO DAILYWM [facility] Last Admin: 02/27/23 08:31 Dose: 1 tab Nicotine (Nicotine 14 Mg Patch) 1 patch TOP DAILY [facility] Last Admin: 02/27/23 11:49 Dose: 1 patch Ondansetron HCl (Ondansetron 4 Mg/2 Ml Vial) 4 mg IVP Q6HR PRN PRN Reason: Nausea / Vomiting Last Admin: 02/23/23 20:37 Dose: 4 mg Oxycodone HCl (Oxycodone 5 Mg Tablet) 5 mg PO Q4HR PRN PRN Reason: Moderate Pain (Level 4-6) Last Admin: 02/26/23 19:28 Dose: 5 mg Phenol/Menthol (Phenol Throat [place] 177 Ml) 2 sprays MM Q2HR PRN PRN Reason: Throat Pain Last Admin: 02/24/23 03:46 Dose: 2 sprays Polyethylene Glycol (Polyethylene Glycol 3350 17 Gm Packet) 17 gm PO DAILY [facility] Last Admin: 02/27/23 08:34 Dose: Not Given Prochlorperazine Edisylate (Prochlorperazine 10 Mg/2 Ml Vial) 10 mg IVP Q6HR PRN PRN Reason: Nausea / Vomiting Last Admin: 02/24/23 00:23 Dose: 10 mg Sodium Chloride (Sodium Chloride Flush 0.9% 10 Ml Syringe) 10 ml IVP 0100,0900,1700 [facility] Last Admin: 02/27/23 08:32 Dose: 10 ml Sodium Chloride (Sodium Chloride Flush 0.9% 10 Ml Syringe) 10 ml IVP PRN PRN PRN Reason: NEEDED PER PROVIDER ORDERS Last Admin: 02/27/23 05:12 Dose: 10 ml Throat Lozenges (Benzocaine/Menthol Lozenge) 1 lozenge MM Q2HR PRN PRN Reason: Throat pain Last Admin: 02/24/23 00:23 Dose: 1 lozenge No Known Home Medications 02/20/23 Objective - Vital Signs/Intake & Output Reviewed Vital Signs: Yes Vital Signs: Vital Signs x48h Temp Pulse Resp BP Pulse Ox 02/27/23 08:00 36.4 C L 86 18 119/59 L 97 Intake & Output: Intake & Output 02/24/23 02/25/23 02/26/23 02/27/23 23:59 23:59 23:59 23:59 Intake Total 5633.333 4610.333 2056.667 680 Output Total 8480 7473 6460 0249 Balance -2846.667 -1039.667 -793.333 -2070 - Objective General Appearance: positive: Alert Eyes Bilateral: positive: PERRL, EOMI ENT: positive: No signs of dehydration Neck: positive: No JVD, Lymphadenopathy (R) (shotty), Lymphadenopathy (L) (shotty). negative: Stiff neck Respiratory: positive: No respiratory distress. negative: Wheezes, Rales, Rhonchi Cardiovascular: positive: Regular rate & rhythm. negative: Systolic murmur Abdomen: positive: Non-tender, No organomegaly, Nml bowel sounds, No distention Skin: positive: Other (healing excoriations on face and arms and body) Extremities: positive: Full ROM, Nml appearance, No pedal edema Neurologic/Psychiatric: positive: Oriented x3, CN's nml (2-12), Motor nml. negative: Mood/affect nml (outbursts of anger as exhibited by yelling, kicking bed, throwing of arms and hands above his head with f bomb here, f bomb there. Angry that showcase trimmer described his suicidal ideation statements.) - Lab Results Fish Bones: 02/27/23 07:58 02/26/23 04:39 Other Labs: Lab Results x24hrs 02/27/23 Range/Units 07:58 WBC 10.4 (4.8-10.8) x10^3/uL RBC 4.79 (4.70-6.10) 10^6/uL Hgb 13.7 L (14.0-18.0) g/dL Hct 42.5 (42.0-52.0) % MCV 88.7 (80.0-94.0) fL MCH 28.6 (27.0-31.0) pg MCHC 32.2 (32.0-36.0) g/dL RDW 13.2 (12.0-15.0) % Plt Count 719 H (130-450) 10^3/uL MPV 9.1 (7.4-11.4) fL Neut # (Auto) 6.8 H (1.5-6.6) 10^3/uL Lymph # (Auto) 2.1 (1.5-3.5) 10^3/uL Divide # (Auto) 0.7 (0.0-1.0) 10^3/uL Eos # (Auto) 0.2 (0.0-0.7) 10^3/uL Baso # (Auto) 0.1 (0.0-0.1) 10^3/uL Absolute Nucleated RBC 0.00 x10^3/uL Nucleated RBC % 0.0 /100WBC ABX Reporting Has patient been on IV antibiotics over the past 48 hours?: Yes Sepsis Event Note (H) - Evaluation Current Stage of Sepsis: Sepsis Possible source of Sepsis: positive: Skin/soft tissue - Sepsis Criteria Sepsis Criteria: Recorded Temperature greater than 38.3C or Less than 36C, Recorded Heart Rate greater than 90 bpm, WBC count greater than 12,000 or less than 4000, PREFORM MACHINE OPERATOR: altered consciousness (unrelated to primary neuro pathology) Assessment/Plan - Problem List (1) Cellulitis of left foot Impression: This has improved from what I saw on admission 02/20. The L foot is still midly swollen with skin that is peeling in several places and draining serous fluid but there was no ulcer. 02/26 I described 3 areas of discrete loss of supervicial skin on the dorsum of foot. Bloody, but no deeper than superficial skin loss. The skin of that foot is slightly warm to touch, and more brown than red. He does have toenails that are dirty, and some seem to be missing. But there is no paronychia or onychomycosis. Imaging showed no joint involvement and no osteomyelitis or fractures. His grandmother shared with us that he was hospitalized for many weeks due to a soft tissue abdominal wall infection in 2019. Will request records from [facility] for that stay>> We got a message back from that he has never been there as an inpatient. He was transferred out of ICU 02/24. Previous hospitalist ordered a Wound Consult from Dr Almanza, since pt was extubated and could go to Wound clinic Saturday.. However, RN called the [facility] and Dr. Cai was there 02/25 a nd "they have him overbooked for Monday 02/26". The clinic is telling me that Dr. Cai is booked for the week. Plan: I then consulted general surgery who saw the patient on February 26. She does rec ommend that he make contact with the wound clinic to establish care. Unfortunately the general surgery service is a little chaotic and she says that he is from provider to provider and there will not be continuity of care. She thinks that he is a candidate for a honey type dressing to aid with healing. Unfortunately, the wound clinic continues to be full this week. Plan: Keep his foot clean and dry. Wash it every 3 days with soap and water. Dry carefully and completely. Then apply Mepilex to the wounds and wrap with Kerlix then Kojo wrap. Change every 3 days. Elevate foot when possible. Can be discharged tomorrow. Follow-up will be at the walk-in [facility] for continued observation of the wound. He will do that every 3 days. He has been assigned to the [facility] clinic in [place] and has his first visit on April 02. He will then get a referral from the [facility] to the wound clinic. Once he has been seen at the [facility], his continuity of care can continue there. And he will be treated by both the [facility] clinic in [place] and our local wound clinic. We are asking him to call the [facility] 24 hours in advance to cancel his appointment if he does not make the April 02 appointment. He is going to try and establish care with the [facility] on a permanent basis. But he is not to cancel the April 02 appointment until he has established care. General surgery recommended the patient stay on IV antibiotics until his white cell count was normal. Today it is normal. As such when he is discharged she should be discharged on Keflex 500 mg p.o. 4 times daily for 7 more days. I did speak to his showcase trimmer this morning. She states that he can be safely discharged to his grandmother's house. She is getting things set up with the Department of Corrections and all these moving pieces and prefers that he be discharged tomorrow. The discharge instructions will be sent to the department of corrections. They will be checking in with him on a daily basis via a phone call. If he is not following through on his discharge instructions he is in danger of being remanded back to senior living. His showcase trimmer is working to re-place him in an inpatient substance abuse clinic. She says that it is out of her practice to recommend if he should be on Suboxone or not. He was on Suboxone in the clinic in [place]. (2) Drug abuse and dependence Conclusion/Plan: Urine toxicology screen was positive for amphetamines, methamphetamines, cannabinoids. It was negative for opioids, which he told ED provider he uses. After he was extubated, he also told me that he uses fentanyl alot. Our drug screen does not check for that. His significant agitation and delirium were withdrawal from fentanyl therefore. For that he was on iv sedatives and on the ventilator for 2.5 days, was extu bated on 02/23. 02/25 he honestly told his Med[facility]a RN that he wants narcotics in order to get "high" and prefers fentanyl He was visited by his showcase trimmer on 02/25 who told us that when he was in senior living he was on Suboxone, which we had no history of. His grandmother did confirm that he was on Suboxone as part of his treatment plan in [place]. 02/25 Hospitalist was told by social services analyst Aria that if this patient should try to abscond or leave AMA, we are to call 911 and the police officers would respond, because since he broke his agreement for an early senior living discharge, by disappearing from the inpatient detox rehab unit, he will be returned to senior living after he is medically stabilized. Medical staff is not to reveal that to him, we await the authorities to tell him. Hospitalist did start fentanyl yesterday. This made the patient very happy.I have stopped Dilaudid. I started Suboxone on February 26. He says it gives him a headache, and he refuses to take it. Today there was an explosion of anger. The showcase trimmer from [facility] of human services stated that he was expressing suicidal statements on a daily basis for the last 3 days. We then put him on a one-to-one. He was very angry about that. Social work went in to do a mental health evaluation. She does not feel he is suicidal. He is impulsive, emotional, and says things that he does not mean. As such she is assess to stop the one-to-one. Plan: At discharge, there is no clear instructions from his showcase trimmer about what to do. As such she will be discharged without any pain medication. She will try to keep on getting him into an inpatient substance abuse center. Most likely he will be resumed on Suboxone at that time. (3) Excoriation (skin-picking) disorder Impression: These is most likely from his Meth drug abuse, or from his Hx of developmental delay Plan: The systemic antibiotics are covering for any localized infections associated with these multiple lesions that are seen on his face and extremities (legs mostly) (4) N/V No vomiting. He is eating 50 to 75% of his Regular diet.. For the most part it 75% of his meals. It started after he received narcotics, which were given for pain in his feet Plan: No change in diet. Continue as needed antiemetics in the form of Zofran 4 mg IV push every 4 hours as needed (5) Drug withdrawal delirium resolved Conclusion/Plan: Presumably this was due to Fentanyl withdrawal. He was on a mechanical ventilator for 2.5 days. He was able to be extubated on 02/23. He was initially confused and briefly considered signing out AMA on 02/23, then when he got out of bed and put weight on his feet, had severe bilateral foot pain, he realized he needed to remain hospitalized and he has been cooperative ever since then. Plan: Pharmacy has not been able to confirm the Suboxone, but on the basis of what his grandmother tells me, I Did start Suboxone on February 26. Unfortunately the patient refuses to take it (6) Sepsis resolved Impression: Sepsis criteria that were met included tachycardia, fever, elevated white cell count with the source being his left foot cellulitis. Labs and VS were reviewed. He has had no more fevers, the heart rate has normalized and the WBC has decreased from 36 down to 11.9 today Plan: Continue empiric antibx, Tylenol for fever (7) Hyponatremia resolved Conclusion/Plan: Resolved There was no history of cirrhosis or congestive heart failure, and fluid overloaded was not present, therefore we suspected dehydration and lack of p.o. intake as the cause of his hyponatremia. Sodium has increased to 140 today after being on NS at 100 cc an hour since admission Plan: IV fluids will be stopped, since his oral liquid intake is adequate Follow BMP daily. (8) Hypokalemia resolved since 02/25 Conclusion/Plan: Plan: I will continue to monitor levels on a daily basis and supplement with po potas sium.
[2023-02-27] MEDS: LORazepam 2 MG/ML VIAL IVP PRN (16:51)
[2023-02-27] MEDS: ACETAMINOPHEN 325 MG TABLET PO PRN (19:17)
[2023-02-27] MEDS: oxyCODONE 5 MG TABLET PO PRN (19:17)
[2023-02-28] MEDS: SODIUM CHLORIDE FLUSH 0.9% 10 ML SYRINGE IVP SCH ×2 (01:00→08:07)
[2023-02-28] MEDS: fentaNYL 100 MCG/2 ML VIAL IVP PRN ×3 (03:28→10:23)
[2023-02-28] MEDS: LORazepam 2 MG/ML VIAL IVP PRN ×2 (04:39→11:29)
[2023-02-28] MEDS: ceFAZolin 1 GM in SODIUM CHLORIDE 0.9% MINIBAG 100 ML IV SCH (04:40)
[2023-02-28] MEDS: SODIUM CHLORIDE FLUSH 0.9% 10 ML SYRINGE IVP PRN ×2 (04:40→10:24)
[2023-02-28 05:06] LABS: BASOPHILS % (AUTO) 0.6 %; HCT - HEMATOCRIT 43.5 % (42.0-52.0); HGB - HEMOGLOBIN 13.8 g/dL (14.0-18.0); LYMPHOCYTES % (AUTO) 20.2 %; MEAN CORPUSCULAR HEMOGLOBIN 28.5 pg (27.0-31.0); MEAN CORPUSCULAR HGB CONC 31.7 g/dL (32.0-36.0); MEAN CORPUSCULAR VOLUME 89.9 fL (80.0-94.0); MONOCYTES % (AUTO) 5.2 %; PLT - PLATELET COUNT 762 10^3/uL (130-450); RED BLOOD COUNT 4.84 10^6/uL (4.70-6.10); RED CELL DISTRIBUTION WIDTH 13.2 % (12.0-15.0); WHITE BLOOD COUNT 13.1 x10^3/uL (4.8-10.8)
[2023-02-28 05:10] LABS: ABNORMAL LYMPHS % (MANUAL) 0 %; BAND NEUTROPHILS % (MANUAL) 0 %
[2023-02-28 05:31] LABS: EOSINOPHILS # (MANUAL) 0.3 10^3/uL (0-0.7); LYMPHOCYTES % (MANUAL) 23 %; MONOCYTES # (MANUAL) 0.8 10^3/uL (0.0-1.0); MYELOCYTES % (MANUAL) 2 %; NEUTROPHILS # (MANUAL) 8.8 10^3/uL (1.5-6.6)
[2023-02-28 05:32] LABS: DIFFERENTIAL COMMENT MANUAL DIFFERENTIAL; PLATELET ESTIMATE, MANUAL INCREASED (>450,000) (NORMAL); PLATELET MORPHOLOGY NORMAL APPEARANCE (NORMAL); RBC MORPHOLOGY (MULTIPLE) NORMAL APPEARANCE (NORMAL); WBC MORPHOLOGY (MULTIPLE) NORMAL APPEARANCE (NORMAL)
[2023-02-28] MEDS: MULTIVITAMIN W/MINERALS TABLET PO SCH (08:06)
[2023-02-28] MEDS: ENOXAPARIN 40 MG/0.4 ML SYRINGE SUBQ SCH (08:06)
[2023-02-28] MEDS: NICOTINE 14 MG PATCH TOP SCH (08:06)
[2023-02-28] MEDS: polyethylene glycoL 3350 17 GM PACKET PO SCH (08:07)
[2023-02-28] MEDS: BUPRENORPHINE/NALOXONE 8-2 MG TAB SL SCH (09:07)
--- NOTE | 2023-02-28 11:07 | Discharge Plan ---
Discharge Plan Problem Reviewed?: Yes Disposition: Home, Self Care Condition: Fair Prescriptions: cephALEXin [Keflex] 500 mg PO QID #28 cap HYDROcod/ACETAM 5/325 [[place] 5/325] 1 tab PO Q6H PRN #6 tablet PRN Reason: Severe Pain (Level 7-10) Buprenorphine HCl/Naloxone HCl [Suboxone 8-2 mg Tab] 1 tab SL BID #14 tab Multivitamin W/Minerals [Theragran M] 1 tab PO DAILYWM #30 tab Diet: Regular Activity Restrictions: Activity as Tolerated Shower Restrictions: No Weight Bearing: Full Weight Instruction Topics: Cellulitis Dc , ED Infec Skin Cellulitis Health Concerns: You were hospitalized to treat a severe left foot infection and you went through drug withdrawal, you were in critical condition and needed to be in the intensive care unit. You are being discharged home today, advised to not restart using any illegal drugs, and advised to continue taking care of that foot wound, and attending the walk-in clinic appointments, as planned for you. The left foot should have wound care such: Keep his foot clean and dry. Wash it every 3 days with soap and water. Dry carefully and completely. Then apply Mepilex to the wounds and wrap with Kerlix then Kojo wrap. Change every 3 days. Elevate foot when possible. You are being discharged home to take 7 more days of Keflex 500 mg p.o. 4 times daily, oral antibiotic. The new prescriptions have all been electronically sent to your [facility] pharmacy in [place]. Follow-up medical care will be at the Walk-In [facility] for continued management of the wound. you need to do that every 3 days. After that, you have been assigned to the [facility] in [place] and the first appointment will be on April 02. You will then get a referral from the [facility] doctor to go to the [facility]. Once you are seen at the [facility], your continuity of care will continue there, and you will be treated by both the [facility] in [place] and our [facility]. We are advising you to call the [facility] 24 hours in advance to cancel an appointment if you does not make the April 02 appointment. If you are going to try and establish continuity of care with the [facility] on a permanent basis, do not cancel the April 02 appointment with Ricky Kenney, until you have "established care" at [facility]. These discharge instructions will be sent to the Department of Cor[employer]. They will be checking in with you on a daily basis via a phone call or a visit. If you are not following through on these discharge instructions, or if you walk away and leave, you are in danger of being put back in care home. Plan of Treatment: As above. Care Goals: Improvement in symptoms and stabilization are the goals. Assessment: The patient understands the instructions. Additional Instructions or Follow Up instructions: If you have new or worsening symptoms, call that Walk-In Clinic for advice, or come to the ER. Follow-Up Care: [facility] Clinic - Wound/Ostomy No Smoking: If you smoke, Please STOP! Call for help.
--- NOTE | 2023-02-28 11:40 | Discharge Plan ---
Discharge Plan Problem Reviewed?: Yes Disposition: Home, Self Care Condition: Fair Prescriptions: cephALEXin [Keflex] 500 mg PO QID #28 cap HYDROcod/ACETAM 5/325 [[place] 5/325] 1 tab PO Q6H PRN #6 tablet PRN Reason: Severe Pain (Level 7-10) Buprenorphine HCl/Naloxone HCl [Suboxone 8-2 mg Tab] 1 tab SL BID #14 tab Multivitamin W/Minerals [Theragran M] 1 tab PO DAILYWM #30 tab Activity Restrictions: Activity as Tolerated Shower Restrictions: No Weight Bearing: Full Weight Instruction Topics: Cellulitis Dc Ch, ED Infec Skin Cellulitis Health Concerns: You were hospitalized to treat a severe left foot infection and you went through drug withdrawal, you were in critical condition and needed to be in the intensive care unit. You are being discharged home today, advised to not restart using any illegal drugs, and advised to continue taking care of that foot wound, and attending the walk-in clinic appointments, as planned for you. The left foot should have wound care such: Keep his foot clean and dry. Wash it every 3 days with soap and water. Dry carefully and completely. Then apply Mepilex to the wounds and wrap with Kerlix then Kojo wrap. Change every 3 days. Elevate foot when possible. You are being discharged home to take 7 more days of Keflex 500 mg p.o. 4 times daily, oral antibiotic. The new prescriptions have all been electronically sent to your [facility] pharmacy in [place]. Follow-up medical care will be at the Walk-In [facility] for continued management of the wound. you need to do that every 3 days. After that, you have been assigned to the [facility] in [place] and the first appointment will be on April 02. You will then get a referral from the [facility] doctor to go to the [facility]. Once you are seen at the [facility], your continuity of care will continue there, and you will be treated by both the [facility] in [place] and our [facility]. We are advising you to call the [facility] 24 hours in advance to cancel an appointment if you does not make the April 02 appointment. If you are going to try and establish continuity of care with the [facility] on a permanent basis, do not cancel the April 02 appointment with Ricky Kenney, until you have "established care" at [facility]. These discharge instructions will be sent to the Department of [employer]. They will be checking in with you on a daily basis via a phone call or a visit. If you are not following through on these discharge instructions, or if you walk away and leave, you are in danger of being [facility]. Plan of Treatment: As above. Care Goals: Improvement in symptoms and stabilization are the goals. Assessment: The patient understands the instructions. Additional Instructions or Follow Up instructions: If you have new or worsening symptoms, call that Walk-In Clinic for advice, or come to the ER. No Smoking: If you smoke, Please STOP! Call for help.
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
[2023-02-28 11:59] VITALS: BP 108/73
== END 2023-02-28 12:45 | disposition home or self-care (01) | DRG 872 ==
LOC: ED 10:02 → ICU 14:55 → MS2 02-24 18:37
PROVIDERS: ADMIT Specialist; ATTEND Internal Medicine
PROC: 0BH18EZ Insertion of Endotracheal Airway into Trachea, Via Natural or Artificial Opening Endoscopic (ICD-10-PCS; principal; 2023-02-20)
PROC: 5A1945Z Respiratory Ventilation, 24-96 Consecutive Hours (ICD-10-PCS; 2023-02-20)
DX: A41.9 Sepsis, unspecified organism (principal); L03.116 Cellulitis of left lower limb; F11.23 Opioid dependence with withdrawal; E87.1 Hypo-osmolality and hyponatremia; F15.221 Other stimulant dependence with intoxication delirium; R45.851 Suicidal ideations; R65.20 Severe sepsis without septic shock; F42.4 Excoriation (skin-picking) disorder; E87.6 Hypokalemia; R11.2 Nausea with vomiting, unspecified; F32.A Depression, unspecified; F43.10 Post-traumatic stress disorder, unspecified; S80.211A Abrasion, right knee, initial encounter; X58.XXXA Exposure to other specified factors, initial encounter; Z78.1 Physical restraint status; R00.1 Bradycardia, unspecified
CPT/HCPCS: 31500; 36415; 36600; 71045; 73610; 73630; 73701; 74018; 80048; 80053; 80202; 80306; 81003; 82310; 82330; 82803; 83605; 83690; 83735; 84100; 84132; 84134; 84145; 84478; 85025; 86140; 87040; 87070; 87150; 87205; 90471; 90715; 93005; 94002; 94003; 96365; 96372; 96375; 99285; 99291; 99292; A9270; J0131; J0330; J1170; J1650; J2060; J3370; Q9967; 81001; 87086; 94770

== ENCOUNTER 2023-03-19 10:23 | Emergency (ER) | payer MEDICAID ==
--- NOTE | 2023-03-19 11:23 | ED Physician Documentation ---
History of Present Illness - Stated complaint Stated Complaint: LT FT INJ - Chief complaint Chief Complaint: Wound - Additonal information Additional information: 22-year-old male presents to the emergency department for evaluation of wounds on the dorsum of his left foot. He was admitted to this hospital in mid February for cellulitis with associated illicit drug abuse. He was septic and did require mechanical ventilation for short period of time. Upon discharge, February 28, 2023. He was discharged with an additional 7 days of Keflex. He has not completed that course of antibiotics and states that They made him sick to his stomach. I am he states that the wounds were initially very very deep but they have actually improved. He denies pain and fevers. States he has been soaking the foot every day and applying antibiotic ointment. There is a thick black-yellow eschar on them with a foul-smelling drainage. The dorsum of the foot is otherwise very indurated and erythematous (please see the photos placed in the chart) He denies any fevers. Patient has not been able to see a PCP. He is here with his aunt as well as his county health officer. Review of Systems Constitutional: denies: Fever, Chills GI: reports: Reviewed and negative : reports: Reviewed and negative Skin: reports: Lesions Musculoskeletal: reports: Reviewed and negative PD PAST MEDICAL HISTORY - Past Medical History Cardiovascular: None Respiratory: Asthma (with allergies) Neuro: None Endocrine/Autoimmune: None GI: None : None HEENT: None Psych: Depression, Post traumatic stress disorder Musculoskeletal: Other (lice) Derm: Psoriasis, Other (Severe soft tissue wound infection resulting in weeks of hospitalization at [facility] in 2019) - Past Surgical History Past Surgical History: No - Present Medications Home Medications: Ambulatory Orders Medication Instructions Recorded Confirmed cephALEXin [Keflex] 500 mg PO QID #28 cap 02/28/23 Sulfamethox/Trimeth 800/160 1 each PO BID #14 tablet 03/19/23 [Bactrim Ds 800/160] - Allergies Allergies/Adverse Reactions: Allergies Allergy/AdvReac Type Severity Reaction Status Date / Time polymyxin B AdvReac Hives Verified 03/19/23 10:45 - Social History Does the pt smoke?: No Smoking Status: Current every day smoker Does the pt drink ETOH?: No Does the pt have substance abuse?: Yes - Immunizations Immunizations are current?: Yes Immunizations: TDAP >10years/unknown - POLST Patient has POLST: No POLST Status: Full Code PD ED PE NORMAL - General General: Alert and oriented X 3, No acute distress - HEENT HEENT: Atraumatic, Moist mucous membranes - Neck Neck: Supple, no meningeal sign - Cardiac Cardiac: RRR, No murmur - Extremities Extremities: No deformity, No tenderness to palpate, Normal ROM s pain. No: Other (Dorsum of left foot with multiple open lesions measuring up to 1 cm deep. There is a thick yellow eschar with some foul-smelling purulent drainage.) - Neuro Neuro: Alert and oriented X 3 Eye Opening: Spontaneous Motor: Obeys Commands Verbal: Oriented GCS Score: 15 Results - Vitals Vitals: Vital Signs - 24 hr 03/19/23 10:42 Temperature 36.8 C Heart Rate 70 Respiratory 16 Rate Blood Pressure 136/82 H O2 Saturation 100 Oxygen O2 Source Room air PD Medical Decision Making - ED course Complexity details: reviewed results, considered differential, d/w patient, d/w family, d/w accounting consultant (Dr. Cai) ED course: 22-year-old male presents emergency department with his aunt as well as his marine safety officer for evaluation of wounds that have opened up on his left foot. This patient was admitted in February to the hospital for illicit drug use and cellulitis/sepsis to the left leg. He was discharged on 28 February and did not complete the course of Keflex that had been prescribed. A wound culture from that last hospitalization grew a coag negative staph. Patient reports that when the wounds opened up they were quite deep. He has been soaking the foot daily and applying antibiotic ointment. When he went to see his marine safety officer this morning she was concerned about the appearance of the wounds and thus he presents here. Patient denies pain or fevers. He would not have presented to the hospital if not at the behest of his marine safety officer. Patient is ambulatory. Though the wounds appear chronic given the lack of fevers or inability to probe to bone I have lower suspicion for osteomyelitis. Thus I have deferred imaging or labs at this time. I did ask Dr. Cai our wound physician to briefly take a look at the foot. He agrees that the patient does not need to be admitted to the hospital. He would request a formal referral to wound therapy be placed. He does recommend a new course of antibiotics and given patient's inability to come pleat 4 times daily Keflex patient will be placed on Bactrim for the next week. The patient did have a dressing placed that included Xeroform and gauze and the family was taught how to do this dressing. Upon leaving the emergency department they plan to present to a local walk-in clinic to request a formal wound, therapy or consult referral. Departure - Departure Disposition: 01 Home, Self Care Clinical Impression: Foot ulcer with necrosis of muscle Qualifiers: Laterality: left Qualified Code(s): L97.523 - Non-pressure chronic ulcer of other part of left foot with necrosis of muscle Condition: Stable Record reviewed to determine appropriate education?: Yes Prescriptions: Sulfamethox/Trimeth 800/160 [Bactrim Ds 800/160] 1 each PO BID #14 tablet Comments: Max you have developed some chronic ulcers and wounds on the top of your left foot at the site where you had cellulitis last month. We are starting you on a new course of antibiotics called Bactrim. You will take this twice daily only. Please take it with food. This will help limit stomach upset. Please go to one of our local walk-in clinics. They can make a referral for you to wound therapy. Once this referral is in place you should be able to see wound therapy here at our hospital next week. These wounds are something that will take likely several weeks or even months to heal up. It is important that you follow with a wound therapist in order to get this accomplished. You no longer need to soak the foot or apply antibiotic ointment to it you can shower normally and after showering simply apply the Xeroform and gauze over the wound as shown here in the emergency department. Return to the ER if you develop fevers have new pain in this foot or any concerns of infection.
[2023-03-19] MEDS ORDERED: SULFAMETH/TRIMETH DS 800/160 MG TABLET PO STA (11:49)
[2023-03-19 12:17] VITALS: BP 128/63
== END 2023-03-19 12:16 | disposition home or self-care (01) ==
LOC: ED 10:23
DX: L97.523 Non-pressure chronic ulcer of other part of left foot with necrosis of muscle (principal); F17.200 Nicotine dependence, unspecified, uncomplicated
CPT/HCPCS: 99282; 99284; A9270

== ENCOUNTER 2023-06-08 20:25 | Emergency (ER) | payer OTHER, MEDICAID ==
[2023-06-08 20:35] VITALS: BP 141/80
--- NOTE | 2023-06-08 20:37 | ED Physician Documentation ---
History of Present Illness - Stated complaint Stated Complaint: FITT FOR CONFINEMENT - Chief complaint Chief Complaint: General - History obtained from History obtained from: Patient - History of Present Illness Timing: Prior to arrival - Additonal information Additional information: 23-year-old male with history of polysubstance abuse presents for evaluation for confinement. Patient is under arrest pending placement to [facility]. He was brought in for evaluation of left lower extremity swelling and redness. Patient states has been like this for a month and is painful. Denies trauma. Denies IV drug use. Has been evaluated several times at [facility] for same Review of Systems Musculoskeletal: reports: Extremity pain, Extremity swelling. denies: Neck pain, Back pain, Joint pain PD PAST MEDICAL HISTORY - Past Medical History Cardiovascular: None Respiratory: Asthma (with allergies) Neuro: None Endocrine/Autoimmune: None GI: None : None HEENT: None Psych: Depression, Post traumatic stress disorder Musculoskeletal: Other (lice) Derm: Psoriasis, Other (Severe soft tissue wound infection resulting in weeks of hospitalization at [facility] in 2019) - Past Surgical History Past Surgical History: No - Present Medications Home Medications: Ambulatory Orders Medication Instructions Recorded Confirmed cephALEXin [Keflex] 500 mg PO QID #28 cap 02/28/23 Sulfamethox/Trimeth 800/160 1 each PO BID #14 tablet 03/19/23 [Bactrim Ds 800/160] Doxycycline Hyclate 100 mg PO BID #20 tab 06/08/23 - Allergies Allergies/Adverse Reactions: Allergies Allergy/AdvReac Type Severity Reaction Status Date / Time polymyxin B AdvReac Hives Verified 03/19/23 10:45 - Social History Does the pt smoke?: No Smoking Status: Current every day smoker Does the pt drink ETOH?: No Does the pt have substance abuse?: Yes - Immunizations Immunizations are current?: Yes Immunizations: TDAP >10years/unknown - POLST Patient has POLST: No POLST Status: Full Code PD ED PE NORMAL - Vitals Vital signs reviewed: Yes - General General: Alert and oriented X 3, No acute distress, Other (tearful) - Cardiac Cardiac: RRR, No murmur - Respiratory Respiratory: No respiratory distress, Clear bilaterally - Abdomen Abdomen: Soft, Non distended - Derm Derm: Other (L foot erythema and swelling. No obvious warmth) - Extremities Extremities: Other (L foot swelling) - Neuro Neuro: Alert and oriented X 3, special education assistant 2-12 intact, No motor deficit, Normal speech - Psych Psych: Normal mood, Normal affect Results - Vitals Vitals: Vital Signs - 24 hr 06/08/23 20:28 Temperature 36.5 C Heart Rate 101 H Respiratory 20 Rate Blood Pressure 141/80 H O2 Saturation 100 Oxygen O2 Source Room air PD Medical Decision Making - ED course Complexity details: reviewed results, re-evaluated patient, considered differential, d/w patient ED course: L foot pain and swelling. Patient refused ultrasound imaging stating "I'm tired of this bullshit, just send me to alf". Will treat cellulitis with doxycycline Departure - Departure Disposition: 01 Home, Self Care Clinical Impression: Foot swelling, Refusal of treatment by patient, Cellulitis Condition: Stable Instructions: Cellulitis Dc Prescriptions: Doxycycline Hyclate 100 mg PO BID #20 tab Forms: PCP List Discharge Date/Time: 06/08/23 21:28
== END 2023-06-08 21:28 | disposition home or self-care (01) ==
LOC: ED 20:25
DX: L03.116 Cellulitis of left lower limb (principal); F17.200 Nicotine dependence, unspecified, uncomplicated; Z53.29 Procedure and treatment not carried out because of patient's decision for other reasons
CPT/HCPCS: 99283; 99284

== ENCOUNTER 2024-04-04 23:10 | Outpatient (CLI) | payer MEDICAID | END 2024-04-04 23:59 | disposition critical access hospital (66) | LOC: EMS 23:10 | DX: Z04.6 Encounter for general psychiatric examination, requested by authority (principal); R46.2 Strange and inexplicable behavior; R45.1 Restlessness and agitation; Z78.1 Physical restraint status | CPT/HCPCS: A0425; A0429; A0999 ==

== ENCOUNTER 2024-04-04 23:32 | Observation (INO) | payer MEDICAID ==
--- NOTE | 2024-04-04 23:38 | ED Physician Documentation ---
History of Present Illness - Stated complaint Stated Complaint: ALMA/AMS - History obtained from History obtained from: EMS - Additonal information Additional information: 23-year-old man was found in the 40s to agitated and screaming, apparently intoxicated. Further history limited by patient intoxication. He was restrained on arrival. PD PAST MEDICAL HISTORY - Past Medical History Cardiovascular: None Respiratory: Asthma (with allergies) Neuro: None Endocrine/Autoimmune: None GI: None : None HEENT: None Psych: Depression, Post traumatic stress disorder Musculoskeletal: Other (lice) Derm: Psoriasis, Other (Severe soft tissue wound infection resulting in weeks of hospitalization at [facility] in 2019) - Past Surgical History Past Surgical History: No - Allergies Allergies/Adverse Reactions: Allergies Allergy/AdvReac Type Severity Reaction Status Date / Time polymyxin B AdvReac Hives Verified 04/04/24 23:37 - Social History Does the pt smoke?: No Smoking Status: Current every day smoker Does the pt drink ETOH?: No Does the pt have substance abuse?: Yes - Immunizations Immunizations are current?: Yes Immunizations: TDAP >10years/unknown - POLST Patient has POLST: No POLST Status: Full Code PD ED PE NORMAL - Vitals Vital signs reviewed: Yes - General General: Well developed/nourished, Other (Agitated, screaming) - HEENT HEENT: Atraumatic, PERRL, EOMI, Moist mucous membranes, Pharynx benign - Neck Neck: Supple, no meningeal sign - Cardiac Cardiac: Other (Tachycardic rate, regular rhythm) - Respiratory Respiratory: No respiratory distress, Clear bilaterally - Abdomen Abdomen: Non tender, Non distended - Derm Derm: Normal color, Warm and dry - Extremities Extremities: No deformity - Neuro Neuro: No motor deficit, No sensory deficit Eye Opening: Spontaneous Motor: Localizes to Pain Verbal: Incomprehensible GCS Score: 11 - Psych Psych: Other (Agitated delirium) Results - Vitals Vitals: Vital Signs - 24 hr 04/04/24 04/04/24 04/05/24 23:37 23:54 00:00 Temperature 36.7 C Heart Rate 120 H 115 H Respiratory 28 H 22 22 Rate Blood Pressure 107/54 L 107/49 L O2 Saturation 99 97 96 04/05/24 04/05/24 04/05/24 00:20 01:09 02:00 Temperature Heart Rate 112 H 108 H 107 H Respiratory 20 20 20 Rate Blood Pressure 101/39 L 102/56 L 110/66 O2 Saturation 97 96 96 Oxygen O2 Source Room air - Labs Labs: Laboratory Tests 04/05/24 04/05/24 04/05/24 00:23 00:35 00:35 WBC 12.7 H RBC 4.49 L Hgb 13.1 L Hct 37.3 L MCV 83.1 MCH 29.2 MCHC 35.1 RDW 11.5 L Plt Count 266 MPV 10.6 Neut # (Auto) 10.9 H Lymph # (Auto) 0.7 L [place] # (Auto) 1.0 Eos # (Auto) 0.0 Baso # (Auto) 0.0 Absolute Nucleated RBC 0.00 Nucleated RBC % 0.0 Sodium 133 L Potassium 3.8 Chloride 94 L Carbon Dioxide 18 L Anion Gap 21.0 H BUN 30 H Creatinine 1.2 Estimated GFR (MDRD) 74 L Glucose 74 POC Whole Bld Glucose 71 Calcium 9.7 Magnesium 1.8 Total Bilirubin 1.6 H AST 236 H ALT 83 H Alkaline Phosphatase 61 Total Creatine Kinase 35457 H* Total Protein 7.0 Albumin 4.7 Globulin 2.3 Albumin/Globulin Ratio 2.0 Lipase < 10 L TSH 1.00 Urine Color Urine Clarity Urine pH Ur Specific [place] Urine Protein Urine Glucose (UA) Urine Ketones Urine Occult Blood Urine Nitrite Urine Bilirubin Urine Urobilinogen Ur Leukocyte Esterase Urine RBC Urine WBC Ur Squamous Epith Cells Urine Bacteria Urine Casts Ur Microscopic Review Urine Culture Comments Salicylates < 1.5 Urine Opiates Screen Ur Buprenorphine Scrn Ur Oxycodone Screen Urine Methadone Screen Acetaminophen < 0.1 Ur Barbiturates Screen Ur Tricyclics Screen Ur Phencyclidine Scrn Ur Amphetamine Screen U Methamphetamines Scrn U Benzodiazepines Scrn Urine Cocaine Screen U Cannabinoids Screen Ur Drug Screen Comment Ethyl Alcohol < 10.0 04/05/24 01:05 WBC RBC Hgb Hct MCV MCH MCHC RDW Plt Count MPV Neut # (Auto) Lymph # (Auto) [place] # (Auto) Eos # (Auto) Baso # (Auto) Absolute Nucleated RBC Nucleated RBC % Sodium Potassium Chloride Carbon Dioxide Anion Gap BUN Creatinine Estimated GFR (MDRD) Glucose POC Whole Bld Glucose Calcium Magnesium Total Bilirubin AST ALT Alkaline Phosphatase Total Creatine Kinase Total Protein Albumin Globulin Albumin/Globulin Ratio Lipase TSH Urine Color YELLOW Urine Clarity CLEAR Urine pH 6.0 Ur Specific [place] >=1.030 H Urine Protein 30 H Urine Glucose (UA) NEGATIVE Urine Ketones >=80 H Urine Occult Blood LARGE H Urine Nitrite NEGATIVE Urine Bilirubin SMALL H Urine Urobilinogen 0.2 (NORMAL) Ur Leukocyte Esterase NEGATIVE Urine RBC 0-5 Urine WBC 0-3 Ur Squamous Epith Cells FEW Squamous Urine Bacteria None Seen Urine Casts 3-5 Fine Granular Ur Microscopic Review INDICATED Urine Culture Comments NOT INDICATED Salicylates Urine Opiates Screen POSITIVE H Ur Buprenorphine Scrn POSITIVE H Ur Oxycodone Screen NEGATIVE Urine Methadone Screen NEGATIVE Acetaminophen Ur Barbiturates Screen NEGATIVE Ur Tricyclics Screen NEGATIVE Ur Phencyclidine Scrn NEGATIVE Ur Amphetamine Screen POSITIVE H U Methamphetamines Scrn POSITIVE H U Benzodiazepines Scrn NEGATIVE Urine Cocaine Screen NEGATIVE U Cannabinoids Screen NEGATIVE Ur Drug Screen Comment CUTOFF CONC BELOW: Ethyl Alcohol PD Medical Decision Making - ED course ED course: 23-year-old man presents the ED and agitated delirium likely secondary to polysubstance abuse. Chemical and physical restraints ordered on arrival and lab work was obtained, revealing rhabdomyolysis. Discussed with telehealth for admission. Restraint renewal due at 3:35 AM. Departure - Departure Disposition: 66 [facility] DC/Xfer Clinical Impression: Rhabdomyolysis, Methamphetamine abuse, Agitation, Polysubstance abuse Condition: Fair
--- NOTE | 2024-04-04 23:39 | ED Physician Documentation ---
Restraint [id number] - Immediate Situation Face to Face Evaluation Date: 04/04/24 Face to Face Evaluation Time: 11:40 Restraint Classification: Violent, physical, chemical (with physical hold) - Behavioral Condition Attitude: Indifferent Behavior: Agitated Orientation: Non-responsive Mood: Labile - Evaluation Pertinent History/Illicit Drugs/Medications/Results: See HPI for details - Plan Need to Initiate/Renew Violent or Chemical Restraint: Will DC when safe
[2024-04-04] MEDS ORDERED: LORazepam 2 MG/ML VIAL ONE (23:40)
[2024-04-04] MEDS: diphenhydrAMINE INJ 50 MG/ML VIAL IM STA (23:43)
[2024-04-04] MEDS: LORazepam 2 MG/ML VIAL IM STA (23:43)
[2024-04-04] MEDS: HALOPERIDOL 5 MG/ML VIAL IM STA (23:44)
[2024-04-05 00:58] LABS: MAGNESIUM 1.8 mg/dL (1.7-2.3)
[2024-04-05] MEDS: DEXTROSE 10% 1,000 ML IV STA (01:01)
[2024-04-05] MEDS: DEXTROSE 5%-0.45% NACL 1,000 ML IV STA (01:01)
[2024-04-05 01:02] LABS: BASOPHILS % (AUTO) 0.2 %; HCT - HEMATOCRIT 37.3 % (42.0-52.0); HGB - HEMOGLOBIN 13.1 g/dL (14.0-18.0); LYMPHOCYTES # (AUTO) 0.7 10^3/uL (1.5-3.5); LYMPHOCYTES % (AUTO) 5.4 %; MEAN CORPUSCULAR HEMOGLOBIN 29.2 pg (27.0-31.0); MEAN CORPUSCULAR HGB CONC 35.1 g/dL (32.0-36.0); MEAN CORPUSCULAR VOLUME 83.1 fL (80.0-94.0); MEAN PLATELET VOLUME 10.6 fL (7.4-11.4); MONOCYTES % (AUTO) 7.8 %; NEUTROPHILS # (AUTO) 10.9 10^3/uL (1.5-6.6); NEUTROPHILS % (AUTO) 86.3 %; PLT - PLATELET COUNT 266 10^3/uL (130-450); RED BLOOD COUNT 4.49 10^6/uL (4.70-6.10); RED CELL DISTRIBUTION WIDTH 11.5 % (12.0-15.0); WHITE BLOOD COUNT 12.7 x10^3/uL (4.8-10.8)
[2024-04-05 01:05] LABS: ETOH - ETHANOL < 10.0 mg/dL
[2024-04-05 01:08] LABS: ACETAMINOPHEN < 0.1 ug/mL; ALBUMIN 4.7 g/dL (3.2-5.5); ALKALINE PHOSPHATASE 61 IU/L (42-121); ALT ALANINE AMINOTRANSFERASE 83 IU/L (10-60); AST ASPARTATE AMINOTRANSFERASE 236 IU/L (10-42); BILIRUBIN,TOTAL 1.6 mg/dL (0.2-1.0); BUN - BLOOD UREA NITROGEN 30 mg/dL (6-20); CALCIUM 9.7 mg/dL (8.5-10.3); CARBON DIOXIDE - CO2 18 mmol/L (21-32); CHLORIDE 94 mmol/L (101-111); CREATININE 1.2 mg/dL (0.6-1.3); GFR - MDRD 74 (>89); GLUCOSE 74 mg/dL (74-104); POTASSIUM 3.8 mmol/L (3.5-4.5); SODIUM 133 mmol/L (135-145)
[2024-04-05 01:11] LABS: LIPASE < 10 U/L (11-82); SALICYLATE < 1.5 mg/dL
[2024-04-05 01:26] LABS: BILIRUBIN,URINE SMALL (NEGATIVE); GLUCOSE, URINE (UA) NEGATIVE (NEGATIVE); KETONES,URINE (UA) >=80 mg/dL (NEGATIVE); LEUKOCYTE ESTERASE, URINE NEGATIVE (NEGATIVE); NITRITE,URINE NEGATIVE (NEGATIVE); OCCULT BLOOD,URINE LARGE (NEGATIVE); PROTEIN,URINE 30 mg/dL (NEGATIVE); UROBILINOGEN,URINE 0.2 (NORMAL) E.U./dL (NORMAL)
[2024-04-05 01:46] LABS: CLARITY,URINE CLEAR (CLEAR)
[2024-04-05 01:47] LABS: BACTERIA,URINE None Seen /HPF (None Seen); CASTS, URINE 3-5 Fine Granular /LPF; RBC,URINE 0-5 /HPF (0-5); SQUAMOUS EPITHELIAL CELL,UR FEW Squamous (<= Few); WBC,URINE 0-3 /HPF (0-3)
[2024-04-05 01:53] LABS: CK- CREATINE KINASE 11779 IU/L (30-223)
[2024-04-05 01:57] LABS: AMPHETAMINE SCREEN,URINE POSITIVE (NEGATIVE); BARBITURATE SCREEN,UR NEGATIVE (NEGATIVE); BENZODIAZEPINES SCREEN, URINE NEGATIVE (NEGATIVE); BUPRENORPHINE SCREEN, URINE POSITIVE (NEGATIVE); COCAINE SCREEN URINE NEGATIVE (NEGATIVE); METHADONE SCREEN, URINE NEGATIVE (NEGATIVE); METHAMPHETAMINES SCREEN, URINE POSITIVE (NEGATIVE); OPIATE SCREEN, URINE POSITIVE (NEGATIVE); OXYCODONE SCREEN, URINE NEGATIVE (NEGATIVE); THC CANNABINOID SCREEN, URINE NEGATIVE (NEGATIVE); TRICYCLIC ANTIDEPRESSANT,URINE NEGATIVE (NEGATIVE)
[2024-04-05] MEDS: BACITRACIN ZINC OINT 1 PACKET TOP STA (02:15)
[2024-04-05] MEDS ORDERED: SODIUM CHLORIDE FLUSH 0.9% 10 ML SYRINGE IVP PRN (02:27)
[2024-04-05] MEDS ORDERED: ONDANSETRON 4 MG/2 ML VIAL IVP PRN (02:27)
[2024-04-05] MEDS: SODIUM CHLORIDE 0.9% 1,000 ML IV STA ×2 (02:30→05:45)
--- NOTE | 2024-04-05 02:38 | HISTORY & PHYSICAL EXAMINATION ---
Chief Complaint - Chief Complaint Chief Complaint: Agitation History of Present Illness - History of Present Illness HPI Comment/Other: 23 y old male with PMH meth abuse presented to ER due to agitation. As per ER physician, pt was quite agitated, screaming, was given haldol and lorazepam IV and restraints were applied. Pt is sedated at the time of my examination, so most of history is from ER physician Labs showed leukocytosis, Olive Grader 1.2, Elevated CPK In ER, pt was given IVF U Tox positive for amphetamine Pt is admitted due to acute rhabdomyolysis, MEERA, Anxiety, agitation History - Past Medical History Cardiovascular: reports: None Respiratory: reports: Asthma (with allergies) Neuro: reports: None Endocrine/Autoimmune: reports: None GI: reports: None : reports: None HEENT: reports: None Psych: reports: Depression, Post traumatic stress disorder Musculoskeletal: reports: Other (lice) Derm: reports: Psoriasis, Other (Severe soft tissue wound infection resulting in weeks of hospitalization at [facility] in 2019) MRSA Hx?: No - Family & Social History Family History Comment/Other: Mother is bipolar and has substance abuse. Dad has alcoholism. No siblings. No children Living Situation: Other Social History Notes: Arrived to the ED with girlfriend. He is main form of recreational substance abuse is heroin. Methamphetamines. No history of tobacco abuse or alcoholism. - Substance History Use: Uses substance without health or social issues: Amphetamine, Opioid, Other (vapes marijuana oil) - POLST Patient has POLST: No POLST Status: Full Code Meds/Allgy - Allergies Allergies/Adverse Reactions: Allergies Allergy/AdvReac Type Severity Reaction Status Date / Time polymyxin B AdvReac Hives Verified 04/04/24 23:37 Review of Systems - Other Findings Other Findings: Unable to obtain due to AMS Exam - Vital Signs Vital Signs: Vital Signs x48h Temp Pulse Resp BP Pulse Ox 04/05/24 02:00 107 H 20 110/66 96 04/05/24 01:09 108 H 20 102/56 L 96 04/05/24 00:20 112 H 20 101/39 L 97 04/05/24 00:00 115 H 22 107/49 L 96 04/04/24 23:54 120 H 22 107/54 L 97 04/04/24 23:37 36.7 C 28 H 99 - Physical Exam General Appearance: positive: No acute distress, Other (Pt is sedated) Eyes Bilateral: positive: Normal inspection Neck: positive: Nml inspection Respiratory: positive: Breath sounds nml Cardiovascular: positive: Regular rate & rhythm Abdomen: positive: Non-tender, Nml bowel sounds Skin: positive: No rash Extremities: positive: No pedal edema Neurologic/Psychiatric: positive: Other (Sedated) Conclusion/Plan - Lab Results Fish Bones: 04/05/24 00:35 04/05/24 00:35 - Other Other Results/Comments: A; Acute rhabdomyolysis MEERA AMS Anxiety Agitation Leukocytosis Amphetamine abuse Plan; Admit to med surg with tele Start NS @ 125 cc/h Repeat CBC, CMP, CPK in am Monitor I/O, electrolytes NPO Ativan 0.5 mg iv q6h prn for anxiety Monitor for withdrawl DVT prophylaxic; SCD Full code Pt is admitted as inpatient as more than 2 midnight stay is expected
[2024-04-05 05:00] LABS: BASOPHILS % (AUTO) 0.2 %; HCT - HEMATOCRIT 35.2 % (42.0-52.0); HGB - HEMOGLOBIN 12.3 g/dL (14.0-18.0); LYMPHOCYTES # (AUTO) 1.1 10^3/uL (1.5-3.5); LYMPHOCYTES % (AUTO) 10.3 %; MEAN CORPUSCULAR HEMOGLOBIN 29.1 pg (27.0-31.0); MEAN CORPUSCULAR HGB CONC 34.9 g/dL (32.0-36.0); MEAN CORPUSCULAR VOLUME 83.4 fL (80.0-94.0); MEAN PLATELET VOLUME 10.1 fL (7.4-11.4); MONOCYTES # (AUTO) 1.3 10^3/uL (0.0-1.0); MONOCYTES % (AUTO) 11.7 %; NEUTROPHILS # (AUTO) 8.6 10^3/uL (1.5-6.6); NEUTROPHILS % (AUTO) 77.5 %; PLT - PLATELET COUNT 230 10^3/uL (130-450); RED BLOOD COUNT 4.22 10^6/uL (4.70-6.10); RED CELL DISTRIBUTION WIDTH 11.5 % (12.0-15.0); WHITE BLOOD COUNT 11.1 x10^3/uL (4.8-10.8)
[2024-04-05 05:07] LABS: POTASSIUM 4.4 mmol/L (3.5-4.5)
[2024-04-05 05:13] LABS: ALBUMIN 4.3 g/dL (3.2-5.5); BILIRUBIN,TOTAL 1.1 mg/dL (0.2-1.0); CALCIUM 8.8 mg/dL (8.5-10.3); CREATININE 1.1 mg/dL (0.6-1.3); TOTAL PROTEIN 6.4 g/dL (6.4-8.9)
[2024-04-05] MEDS ORDERED: SODIUM CHLORIDE 0.9% 1,000 ML IV ONE (05:40)
[2024-04-05] MEDS: LORazepam 2 MG/ML VIAL IVP STA (07:48)
[2024-04-05] MEDS: SODIUM CHLORIDE 0.9% 1,000 ML IV SCH (10:26)
[2024-04-05] MEDS: NICOTINE 14 MG PATCH TOP SCH (10:26)
[2024-04-05] MEDS: OLANZapine ODT 5 MG TABLET TL SCH (10:26)
[2024-04-05] MEDS: SODIUM CHLORIDE FLUSH 0.9% 10 ML SYRINGE IVP SCH (10:27)
--- NOTE | 2024-04-05 11:30 | PROVIDER PROGRESS NOTE ---
Assessment/Plan - Problem List (1) Rhabdomyolysis Assessment/Plan: --Started on aggressive IV fluid administration. --Unclear as to the source of his rhabdo, however CK is downtrending and renal function is normal. --Monitor CK every 12 hours. (2) Polysubstance abuse Assessment/Plan: --History of polysubstance abuse including heroin and methamphetamine. --Patient did require restraints on arrival to the ED due to agitation, however he has been calm and cooperative on the floor. --Ativan available for anxiety. --SW consulted. (3) Liver enzyme elevation Assessment/Plan: --Continue to monitor. Appear to be downtrending. Exact etiology is unknown, will obtain hepatitis panel in AM. - Current Meds Current Meds: Current Medications Generic Name Dose Route Start Last Admin Trade Name Freq PRN Reason Stop Dose Admin Sodium Chloride 1,000 mls @ 125 mls/hr 04/05/24 03:00 04/05/24 10:26 Normal Saline 0.9% IV 125 mls/hr .Q8H JENNIFER Administration Nicotine 1 patch 04/05/24 09:00 04/05/24 10:26 Nicotine 14 Mg Patch TOP 1 patch DAILY JENNIFER Administration Olanzapine 5 mg 04/05/24 07:37 04/05/24 10:26 Olanzapine Odt 5 Mg Tablet TL 5 mg DAILY JENNIFER Administration Sodium Chloride 10 ml 04/05/24 09:00 04/05/24 10:27 Sodium Chloride Flush 0.9% 10 Ml Syringe IVP 10 ml 0100,0900,1700 JENNIFER Administration - Lab Result Fish Bone Diagrams: 04/05/24 04:47 04/05/24 04:47 - Additional Planning My Orders: My Active Orders 04/05/24 19:17 CK- CREATINE KINASE [CHEM] Q12H 04/06/24 07:17 CK- CREATINE KINASE [CHEM] Q12H 04/06/24 19:17 CK- CREATINE KINASE [CHEM] Q12H Subjective - Subjective Patient Reports: Feeling Better, Resting Comfortably, No Complaints, Other (Patient was calm and cooperative. He was eating food. Not requiring restraints.) Objective Vital Signs: Vital Signs - 24 hr 04/04/24 04/04/24 04/05/24 23:37 23:54 00:00 Temperature 36.7 C Heart Rate 120 H 115 H Heart Rate [ Brachial] Respiratory 28 H 22 22 Rate Blood Pressure 107/54 L 107/49 L Blood Pressure [Right Brachial artery] O2 Saturation 99 97 96 04/05/24 04/05/24 04/05/24 00:20 01:09 02:00 Temperature Heart Rate 112 H 108 H 107 H Heart Rate [ Brachial] Respiratory 20 20 20 Rate Blood Pressure 101/39 L 102/56 L 110/66 Blood Pressure [Right Brachial artery] O2 Saturation 97 96 96 04/05/24 04/05/24 04/05/24 04:00 06:00 07:58 Temperature 37.3 C Heart Rate 98 95 105 H Heart Rate [ Brachial] Respiratory 16 16 16 Rate Blood Pressure 101/62 111/60 141/79 H Blood Pressure [Right Brachial artery] O2 Saturation 97 97 97 04/05/24 04/05/24 04/05/24 09:20 10:08 10:28 Temperature 36.9 C 36.7 C Heart Rate 97 95 Heart Rate [ 92 Brachial] Respiratory 15 16 18 Rate Blood Pressure 131/57 H 118/58 L Blood Pressure 127/85 H [Right Brachial artery] O2 Saturation 97 97 98 Oxygen O2 Source Room air I&O (Last 24 Hrs): Intake and Output Totals x24h 04/03/24 04/04/24 04/05/24 23:59 23:59 23:59 Intake Total 3000 Balance 3000 General: Alert, Oriented x3 Cardiovascular: Regular rate, Normal S1, Normal S2, No murmurs Respiratory: Chest non-tender, No respiratory distress, Breath sounds nml Abdomen: Normal bowel sounds, Soft, No tenderness, No hepatospenomegaly, No masses - Results Results: Laboratory Results WBC 11.1 x10^3/uL (4.8-10.8) H 04/05/24 04:47 RBC 4.22 10^6/uL (4.70-6.10) L 04/05/24 04:47 Hgb 12.3 g/dL (14.0-18.0) L 04/05/24 04:47 Hct 35.2 % (42.0-52.0) L 04/05/24 04:47 MCV 83.4 fL (80.0-94.0) 04/05/24 04:47 MCH 29.1 pg (27.0-31.0) 04/05/24 04:47 MCHC 34.9 g/dL (32.0-36.0) 04/05/24 04:47 RDW 11.5 % (12.0-15.0) L 04/05/24 04:47 Plt Count 230 10^3/uL (130-450) 04/05/24 04:47 MPV 10.1 fL (7.4-11.4) 04/05/24 04:47 Neut # (Auto) 8.6 10^3/uL (1.5-6.6) H 04/05/24 04:47 Lymph # (Auto) 1.1 10^3/uL (1.5-3.5) L 04/05/24 04:47 [place] # (Auto) 1.3 10^3/uL (0.0-1.0) H 04/05/24 04:47 Eos # (Auto) 0.0 10^3/uL (0.0-0.7) 04/05/24 04:47 Baso # (Auto) 0.0 10^3/uL (0.0-0.1) 04/05/24 04:47 Absolute Nucleated RBC 0.00 x10^3/uL 04/05/24 04:47 Nucleated RBC % 0.0 /100WBC 04/05/24 04:47 Sodium 133 mmol/L (135-145) L 04/05/24 04:47 Potassium 4.4 mmol/L (3.5-4.5) 04/05/24 04:47 Chloride 99 mmol/L (101-111) L 04/05/24 04:47 Carbon Dioxide 24 mmol/L (21-32) 04/05/24 04:47 Anion Gap 10.0 (6-13) 04/05/24 04:47 BUN 22 mg/dL (6-20) H 04/05/24 04:47 Creatinine 1.1 mg/dL (0.6-1.3) 04/05/24 04:47 Estimated GFR (MDRD) 82 (>89) L 04/05/24 04:47 Glucose 109 mg/dL (74-104) H 04/05/24 04:47 POC Whole Bld Glucose 71 mg/dL (70 - 100) 04/05/24 00:23 Calcium 8.8 mg/dL (8.5-10.3) 04/05/24 04:47 Magnesium 1.8 mg/dL (1.7-2.3) 04/05/24 00:35 Total Bilirubin 1.1 mg/dL (0.2-1.0) H 04/05/24 04:47 AST 205 IU/L (10-42) H 04/05/24 04:47 ALT 74 IU/L (10-60) H 04/05/24 04:47 Alkaline Phosphatase 55 IU/L (42-121) 04/05/24 04:47 Total Creatine Kinase 8565 IU/L (30-223) H* 04/05/24 07:38 Total Protein 6.4 g/dL (6.4-8.9) 04/05/24 04:47 Albumin 4.3 g/dL (3.2-5.5) 04/05/24 04:47 Globulin 2.1 g/dL (2.1-4.2) 04/05/24 04:47 Albumin/Globulin Ratio 2.0 (1.0-2.2) 04/05/24 04:47 Lipase < 10 U/L (11-82) L 04/05/24 00:35 TSH 1.00 uIU/mL (0.34-5.60) 04/05/24 00:35 Urine Color YELLOW 04/05/24 01:05 Urine Clarity CLEAR (CLEAR) 04/05/24 01:05 Urine pH 6.0 PH (5.0-7.5) 04/05/24 01:05 Ur Specific [place] >=1.030 (1.002-1.030) H 04/05/24 01:05 Urine Protein 30 mg/dL (NEGATIVE) H 04/05/24 01:05 Urine Glucose (UA) NEGATIVE mg/dL (NEGATIVE) 04/05/24 01:05 Urine Ketones >=80 mg/dL (NEGATIVE) H 04/05/24 01:05 Urine Occult Blood LARGE (NEGATIVE) H 04/05/24 01:05 Urine Nitrite NEGATIVE (NEGATIVE) 04/05/24 01:05 Urine Bilirubin SMALL (NEGATIVE) H 04/05/24 01:05 Urine Urobilinogen 0.2 (NORMAL) E.U./dL (NORMAL) 04/05/24 01:05 Ur Leukocyte Esterase NEGATIVE (NEGATIVE) 04/05/24 01:05 Urine RBC 0-5 /HPF (0-5) 04/05/24 01:05 Urine WBC 0-3 /HPF (0-3) 04/05/24 01:05 Ur Squamous Epith Cells FEW Squamous (<= Few) 04/05/24 01:05 Urine Bacteria None Seen /HPF (None Seen) 04/05/24 01:05 Urine Casts 3-5 Fine Granular /LPF 04/05/24 01:05 Ur Microscopic Review INDICATED 04/05/24 01:05 Urine Culture Comments NOT INDICATED 04/05/24 01:05 Salicylates < 1.5 mg/dL 04/05/24 00:35 Urine Opiates Screen POSITIVE (NEGATIVE) H 04/05/24 01:05 Ur Buprenorphine Scrn POSITIVE (NEGATIVE) H 04/05/24 01:05 Ur Oxycodone Screen NEGATIVE (NEGATIVE) 04/05/24 01:05 Urine Methadone Screen NEGATIVE (NEGATIVE) 04/05/24 01:05 Acetaminophen < 0.1 ug/mL 04/05/24 00:35 Ur Barbiturates Screen NEGATIVE (NEGATIVE) 04/05/24 01:05 Ur Tricyclics Screen NEGATIVE (NEGATIVE) 04/05/24 01:05 Ur Phencyclidine Scrn NEGATIVE (NEGATIVE) 04/05/24 01:05 Ur Amphetamine Screen POSITIVE (NEGATIVE) H 04/05/24 01:05 U Methamphetamines Scrn POSITIVE (NEGATIVE) H 04/05/24 01:05 U Benzodiazepines Scrn NEGATIVE (NEGATIVE) 04/05/24 01:05 Urine Cocaine Screen NEGATIVE (NEGATIVE) 04/05/24 01:05 U Cannabinoids Screen NEGATIVE (NEGATIVE) 04/05/24 01:05 Ur Drug Screen Comment CUTOFF CONC BELOW: 04/05/24 01:05 Ethyl Alcohol < 10.0 mg/dL 04/05/24 00:35 - Procedures Procedures: Procedures INSERTION OF ENDOTRACHEAL AIRWAY INTO TRACHEA, ENDO (02/20/23) RESPIRATORY VENTILATION, 24-96 CONSECUTIVE HOURS (02/20/23) ABX Reporting Has patient been on IV antibiotics over the past 48 hours?: No
[2024-04-05] MEDS: HYDROcod/ACETAM 5/325 MG TABLET PO PRN (13:07)
[2024-04-05] MEDS: LORazepam 2 MG/ML VIAL IVP PRN (19:13)
[2024-04-06 08:01] LABS: CALCIUM 8.3 mg/dL (8.5-10.3); CREATININE 0.8 mg/dL (0.6-1.3)
[2024-04-06] MEDS: POTASSIUM CHLORIDE 20 MEQ TABLET PO SCH (11:12)
--- NOTE | 2024-04-06 11:38 | PROVIDER PROGRESS NOTE ---
Assessment/Plan - Problem List (1) Rhabdomyolysis Assessment/Plan: (1) Rhabdomyolysis Assessment/Plan: --Started on aggressive IV fluid administration. --Unclear as to the source of his rhabdo (possibly methamphetamine abuse), however CK is downtrending and renal function is normal. (2) Polysubstance abuse Assessment/Plan: --History of polysubstance abuse including heroin and methamphetamine. --Patient did require restraints on arrival to the ED due to agitation, however he has been calm and cooperative on the floor. --Ativan available for anxiety. --SW consulted. He is not on any hold and at the time of this dictation does not pose a threat to himself or anyone else. (3) Liver enzyme elevation Assessment/Plan: --Continue to monitor. Appear to be downtrending. Exact etiology is unknown, hepatitis panel pending. Dispo: CK downtrending. He remains on observation. Not medically stable for discharge today. - Current Meds Current Meds: Current Medications Generic Name Dose Route Start Last Admin Trade Name Freq PRN Reason Stop Dose Admin Hydrocodone Bitart/Acetaminophen 1 tab 04/05/24 12:49 04/06/24 06:33 Hydrocod/Acetam 5/325 Mg Tablet PO 1 tab Q4HR PRN Administration Moderate Pain (Level 4-6) Sodium Chloride 1,000 mls @ 125 mls/hr 04/05/24 03:00 04/06/24 04:17 Normal Saline 0.9% IV 125 mls/hr .Q8H JENNIFER Administration Lorazepam 0.5 mg 04/05/24 02:32 04/05/24 19:13 Lorazepam 2 Mg/Ml Vial IVP 0.5 mg Q6H PRN Administration Anxiety Nicotine 1 patch 04/05/24 09:00 04/06/24 09:19 Nicotine 14 Mg Patch TOP 1 patch DAILY JENNIFER Administration Olanzapine 5 mg 04/05/24 07:37 04/06/24 09:19 Olanzapine Odt 5 Mg Tablet TL 5 mg DAILY JENNIFER Administration Potassium Chloride 40 meq 04/06/24 10:00 04/06/24 11:12 Potassium Chloride 20 Meq Tablet PO 04/07/24 21:01 40 meq BID JENNIFER Administration Sodium Chloride 10 ml 04/05/24 09:00 04/06/24 09:19 Sodium Chloride Flush 0.9% 10 Ml Syringe IVP 10 ml 0100,0900,1700 JENNIFER Administration - Lab Result Fish Bone Diagrams: 04/05/24 04:47 04/06/24 07:20 - Additional Planning My Orders: My Active Orders 04/05/24 12:49 HYDROcod/ACETAM 5/325 [[place] 5/325] 1 tab PO Q4HR PRN 04/06/24 07:20 HEPATITIS PANEL ACUTE [REFLAB] DAILY 04/06/24 10:00 Potassium Chloride [K-Dur] 40 meq PO BID 04/07/24 05:00 BMP - BASIC METABOLIC PANEL [CHEM] DAILYLAB CBC [CBC - COMP BLD CT W/AUTO DIFF] [HEME] DAILYLAB CK- CREATINE KINASE [CHEM] DAILYLAB 04/08/24 05:00 BMP - BASIC METABOLIC PANEL [CHEM] DAILYLAB CBC [CBC - COMP BLD CT W/AUTO DIFF] [HEME] DAILYLAB CK- CREATINE KINASE [CHEM] DAILYLAB 04/09/24 05:00 BMP - BASIC METABOLIC PANEL [CHEM] DAILYLAB CBC [CBC - COMP BLD CT W/AUTO DIFF] [HEME] DAILYLAB CK- CREATINE KINASE [CHEM] DAILYLAB 04/10/24 05:00 BMP - BASIC METABOLIC PANEL [CHEM] DAILYLAB CBC [CBC - COMP BLD CT W/AUTO DIFF] [HEME] DAILYLAB CK- CREATINE KINASE [CHEM] DAILYLAB 04/11/24 05:00 BMP - BASIC METABOLIC PANEL [CHEM] DAILYLAB CBC [CBC - COMP BLD CT W/AUTO DIFF] [HEME] DAILYLAB CK- CREATINE KINASE [CHEM] DAILYLAB Subjective - Subjective Patient Reports: Feeling Better, No Complaints, Other (Urinating without difficulty this AM. No HI or SI.) Objective Vital Signs: Vital Signs - 24 hr 04/05/24 04/05/24 04/06/24 18:26 19:15 01:39 Temperature 37.1 C 38.1 C H Heart Rate [ 111 H 104 H 112 H Brachial] Respiratory 18 15 Rate Blood Pressure 128/70 112/56 L [Right Brachial artery] O2 Saturation 97 95 04/06/24 04/06/24 04/06/24 02:34 05:07 08:00 Temperature 37.9 C 37.0 C 37.1 C Heart Rate [ 115 H 91 94 Brachial] Respiratory 18 16 Rate Blood Pressure 121/63 139/73 H [Right Brachial artery] O2 Saturation 96 97 Oxygen O2 Source Room air I&O (Last 24 Hrs): Intake and Output Totals x24h 04/04/24 04/05/24 04/06/24 23:59 23:59 23:59 Intake Total 5597.917 1840 Output Total 500 475 Balance 5097.917 1365 General: Alert, Oriented x3 Cardiovascular: Regular rate, Normal S1, Normal S2 Respiratory: Chest non-tender, No respiratory distress, Breath sounds nml Abdomen: Normal bowel sounds, Soft, No tenderness - Results Results: Laboratory Results WBC 11.1 x10^3/uL (4.8-10.8) H 04/05/24 04:47 RBC 4.22 10^6/uL (4.70-6.10) L 04/05/24 04:47 Hgb 12.3 g/dL (14.0-18.0) L 04/05/24 04:47 Hct 35.2 % (42.0-52.0) L 04/05/24 04:47 MCV 83.4 fL (80.0-94.0) 04/05/24 04:47 MCH 29.1 pg (27.0-31.0) 04/05/24 04:47 MCHC 34.9 g/dL (32.0-36.0) 04/05/24 04:47 RDW 11.5 % (12.0-15.0) L 04/05/24 04:47 Plt Count 230 10^3/uL (130-450) 04/05/24 04:47 MPV 10.1 fL (7.4-11.4) 04/05/24 04:47 Neut # (Auto) 8.6 10^3/uL (1.5-6.6) H 04/05/24 04:47 Lymph # (Auto) 1.1 10^3/uL (1.5-3.5) L 04/05/24 04:47 [place] # (Auto) 1.3 10^3/uL (0.0-1.0) H 04/05/24 04:47 Eos # (Auto) 0.0 10^3/uL (0.0-0.7) 04/05/24 04:47 Baso # (Auto) 0.0 10^3/uL (0.0-0.1) 04/05/24 04:47 Absolute Nucleated RBC 0.00 x10^3/uL 04/05/24 04:47 Nucleated RBC % 0.0 /100WBC 04/05/24 04:47 Sodium 138 mmol/L (135-145) 04/06/24 07:20 Potassium 3.0 mmol/L (3.5-4.5) L 04/06/24 07:20 Chloride 108 mmol/L (101-111) 04/06/24 07:20 Carbon Dioxide 25 mmol/L (21-32) 04/06/24 07:20 Anion Gap 5.0 (6-13) L 04/06/24 07:20 BUN 8 mg/dL (6-20) 04/06/24 07:20 Creatinine 0.8 mg/dL (0.6-1.3) 04/06/24 07:20 Estimated GFR (MDRD) 119 (>89) 04/06/24 07:20 Glucose 126 mg/dL (74-104) H 04/06/24 07:20 POC Whole Bld Glucose 71 mg/dL (70 - 100) 04/05/24 00:23 Calcium 8.3 mg/dL (8.5-10.3) L 04/06/24 07:20 Magnesium 1.8 mg/dL (1.7-2.3) 04/05/24 00:35 Total Bilirubin 1.1 mg/dL (0.2-1.0) H 04/05/24 04:47 AST 205 IU/L (10-42) H 04/05/24 04:47 ALT 74 IU/L (10-60) H 04/05/24 04:47 Alkaline Phosphatase 55 IU/L (42-121) 04/05/24 04:47 Total Creatine Kinase 3081 IU/L (30-223) H* 04/06/24 07:20 Total Protein 6.4 g/dL (6.4-8.9) 04/05/24 04:47 Albumin 4.3 g/dL (3.2-5.5) 04/05/24 04:47 Globulin 2.1 g/dL (2.1-4.2) 04/05/24 04:47 Albumin/Globulin Ratio 2.0 (1.0-2.2) 04/05/24 04:47 Lipase < 10 U/L (11-82) L 04/05/24 00:35 TSH 1.00 uIU/mL (0.34-5.60) 04/05/24 00:35 Urine Color YELLOW 04/05/24 01:05 Urine Clarity CLEAR (CLEAR) 04/05/24 01:05 Urine pH 6.0 PH (5.0-7.5) 04/05/24 01:05 Ur Specific [place] >=1.030 (1.002-1.030) H 04/05/24 01:05 Urine Protein 30 mg/dL (NEGATIVE) H 04/05/24 01:05 Urine Glucose (UA) NEGATIVE mg/dL (NEGATIVE) 04/05/24 01:05 Urine Ketones >=80 mg/dL (NEGATIVE) H 04/05/24 01:05 Urine Occult Blood LARGE (NEGATIVE) H 04/05/24 01:05 Urine Nitrite NEGATIVE (NEGATIVE) 04/05/24 01:05 Urine Bilirubin SMALL (NEGATIVE) H 04/05/24 01:05 Urine Urobilinogen 0.2 (NORMAL) E.U./dL (NORMAL) 04/05/24 01:05 Ur Leukocyte Esterase NEGATIVE (NEGATIVE) 04/05/24 01:05 Urine RBC 0-5 /HPF (0-5) 04/05/24 01:05 Urine WBC 0-3 /HPF (0-3) 04/05/24 01:05 Ur Squamous Epith Cells FEW Squamous (<= Few) 04/05/24 01:05 Urine Bacteria None Seen /HPF (None Seen) 04/05/24 01:05 Urine Casts 3-5 Fine Granular /LPF 04/05/24 01:05 Ur Microscopic Review INDICATED 04/05/24 01:05 Urine Culture Comments NOT INDICATED 04/05/24 01:05 Salicylates < 1.5 mg/dL 04/05/24 00:35 Urine Opiates Screen POSITIVE (NEGATIVE) H 04/05/24 01:05 Ur Buprenorphine Scrn POSITIVE (NEGATIVE) H 04/05/24 01:05 Ur Oxycodone Screen NEGATIVE (NEGATIVE) 04/05/24 01:05 Urine Methadone Screen NEGATIVE (NEGATIVE) 04/05/24 01:05 Acetaminophen < 0.1 ug/mL 04/05/24 00:35 Ur Barbiturates Screen NEGATIVE (NEGATIVE) 04/05/24 01:05 Ur Tricyclics Screen NEGATIVE (NEGATIVE) 04/05/24 01:05 Ur Phencyclidine Scrn NEGATIVE (NEGATIVE) 04/05/24 01:05 Ur Amphetamine Screen POSITIVE (NEGATIVE) H 04/05/24 01:05 U Methamphetamines Scrn POSITIVE (NEGATIVE) H 04/05/24 01:05 U Benzodiazepines Scrn NEGATIVE (NEGATIVE) 04/05/24 01:05 Urine Cocaine Screen NEGATIVE (NEGATIVE) 04/05/24 01:05 U Cannabinoids Screen NEGATIVE (NEGATIVE) 04/05/24 01:05 Ur Drug Screen Comment CUTOFF CONC BELOW: 04/05/24 01:05 Ethyl Alcohol < 10.0 mg/dL 04/05/24 00:35 - Procedures Procedures: Procedures INSERTION OF ENDOTRACHEAL AIRWAY INTO TRACHEA, ENDO (02/20/23) RESPIRATORY VENTILATION, 24-96 CONSECUTIVE HOURS (02/20/23)
--- NOTE | 2024-04-06 13:51 | DISCHARGE SUMMARY ---
Discharge Summary Admit Date: 04/05/24 Discharge Date: 04/06/24 Discharging Provider: Kodi Peres Code Status: Attempt Resuscitation Condition at Discharge: Good Discharge Disposition: 07 Against Medical Advice - HPI History of Present Illness: 23 y old male with PMH meth abuse presented to ER due to agitation. As per ER physician, pt was quite agitated, screaming, was given haldol and lorazepam IV and restraints were applied. Pt is sedated at the time of my examination, so most of history is from ER physician Labs showed leukocytosis, [employer] Hand 1.2, Elevated CPK In ER, pt was given IVF U Tox positive for amphetamine Pt is admitted due to acute rhabdomyolysis, MEERA, Anxiety, agitation - HOSPITAL COURSE Hospital Course: Patient is a 23-year-old male who presented to the ED due to agitation and was placed in violent restraints. He appeared to be intoxicated with methamphetamines and possibly heroin. Patient was noted to be in rhabdomyolysis with a CK of 11,000. He was started on IV fluids and admitted to the floor. Patient was quite cooperative and calm throughout his hospitalization. As a CK decreased and he became more alert he opted to leave AGAINST MEDICAL ADVICE. The risks of leaving AMA were explained to him however he opted to discharge and will be staying with a friend. CK on discharge was 3081. - ALLERGIES Allergies/Adverse Reactions: Allergies Allergy/AdvReac Type Severity Reaction Status Date / Time polymyxin B AdvReac Hives Verified 04/04/24 23:37 - MEDICATIONS Home Medications: Ambulatory Orders Medication Instructions Recorded Confirmed No Known Home Medications 04/05/24 04/05/24 - PHYSICAL EXAM AT DISCHARGE General Appearance: positive: No acute distress, Alert Respiratory: positive: Chest non-tender, No respiratory distress, Breath sounds nml Cardiovascular: positive: Regular rate & rhythm, No murmur, No gallop Abdomen: positive: Non-tender, No organomegaly, Nml bowel sounds Neurologic/Psychiatric: positive: Oriented x3, CN's nml (2-12) - LABS Result Diagrams: 04/05/24 04:47 04/06/24 07:20
[2024-04-06 13:58] VITALS: BP 157/85; O2SAT 98
[2024-04-07 03:10] LABS: HBsAG SCREEN Negative (Negative); HCV AB Non Reactive (Non Reactive); HEPATITIS B CORE IGM AB Negative (Negative)
== END 2024-04-06 13:55 | disposition left against medical advice (07) ==
LOC: EDUNIT# → ED 23:32 → INTOOBSV 04-05 02:27 → MS2 04-05 02:27
PROVIDERS: ADMIT Internal Medicine; ATTEND Internal Medicine
DX: M62.82 Rhabdomyolysis (principal); F15.10 Other stimulant abuse, uncomplicated; D72.829 Elevated white blood cell count, unspecified; N17.9 Acute kidney failure, unspecified; F41.9 Anxiety disorder, unspecified; R45.1 Restlessness and agitation; F11.10 Opioid abuse, uncomplicated; R74.01 Elevation of levels of liver transaminase levels; F17.200 Nicotine dependence, unspecified, uncomplicated; Z78.1 Physical restraint status
CPT/HCPCS: 36415; 80048; 80053; 80074; 80143; 80179; 80306; 81001; 82077; 82550; 83690; 83735; 84443; 85025; 96372; 96374; 96376; 99284; 99285; A9270; G0378; J1200; J2060; 81003; 87086